=== PATIENT | male | born 1930 | race Caucasian/White ===

== ENCOUNTER → 2016-10-16 | Outpatient (CLI) | payer MEDICARE, BC ==
[2016-10-16 08:16] LABS: Basophils # (A) 0.1 k/uL (0-0.2); Basophils % (A) 1 %; CH 30.8; CHCM 32.9; Eosinophils # (A) 0.3 k/uL (0-0.7); Eosinophils % (A) 5 %; HDW 2.47; Luc # (Auto) 0.18; Luc % (Auto) 3; Lymphocytes # (A) 1.4 k/uL (1.0-4.8); Lymphocytes % (A) 24 %; MCH 29.9 pg (25.0-35.0); MCHC 31.8 g/dL (31.0-37.0); Mean Platelet Volume 6.6; Monocytes # (A) 0.5 k/uL (0-1.0); Monocytes % (A) 8 %; Neutrophils # (A) 3.3 k/uL (1.3-7.7); Neutrophils % (A) 58 %; RDW 13.7 % (11.5-15.5); WBC 5.7 k/uL (3.8-10.6); WBC (Perox) 5.69
[2016-10-16 08:35] LABS: ALT 21 U/L (21-72); AST 27 U/L (17-59); Alkaline Phosphatase 57 U/L (38-126); Anion Gap 11 mmol/L; Blood Urea Nitrogen 20 mg/dL (9-20); Calcium 9.9 mg/dL (8.4-10.2); Carbon Dioxide 26 mmol/L (22-30); Chloride 106 mmol/L (98-107); Cholesterol 178 mg/dL (<200); Glucose 98 mg/dL (74-99); HDL Cholesterol 46 mg/dL (40-60); Non-African American GFR(MDRD) 59 (>60 ml/min/1.73 sqM); Potassium 4.6 mmol/L (3.5-5.1); Sodium 143 mmol/L (137-145); Total Protein 7.7 g/dL (6.3-8.2); Triglycerides 133 mg/dL (<150)
== END | disposition home or self-care (01) ==
LOC: LABWHC1 07:09
PROVIDERS: ATTEND Family Medicine
DX: E78.5 Hyperlipidemia, unspecified (principal)
CPT/HCPCS: 36415; 80053; 80061; 84439; 84443; 85025

== ENCOUNTER 2016-11-13 00:15 | Inpatient (IN) | payer MEDICARE, BC ==
[2016-11-13] MEDS ORDERED: PANTOPRAZOLE 40 MG/10 ML VIAL IVP STA (00:53)
[2016-11-13] MEDS ORDERED: SODIUM CHLORIDE 0.9% 500 ML IV STA (00:53)
--- NOTE | 2016-11-13 00:57 | ED ---
Abdominal Pain HPI - General Chief Complaint: Abdominal Pain Stated Complaint: Abd Pain/Vomiting Blood Time Seen by Provider: 11/13/16 00:42 Source: patient Mode of arrival: ambulatory Limitations: no limitations - History of Present Illness Initial Comments: Abdominal pain started at 10 PM tonight, he has a history of heartburn for long time he vomited blood 3 tonight he denies any blood in the stool. Denies any headaches no neck stiffness no chest pain no shortness of breath he denies any being on blood thinners he does take a baby aspirin every day and he has history of gastroesophageal reflux disease. Draining about the pain in the epigastric area as well no frequency urgency dysuria no history of TIA or CVA - Related Data Home Medications Medication Instructions Recorded Confirmed Aspirin EC [Ecotrin] 325 mg PO DAILY 11/12/14 11/12/14 Enalapril [Vasotec] 5 mg PO BID 11/12/14 11/12/14 Niacin [Niaspan] 1,000 mg PO HS 11/12/14 11/12/14 Simvastatin [Zocor] 40 mg PO HS 11/12/14 11/12/14 Simvastatin [Zocor] 40 mg PO HS 11/12/14 11/12/14 Previous Rx's Medication Instructions Recorded Acetaminophen with Codeine 1 each PO Q4H PRN #20 tab 11/12/14 [Tylenol w/codeine #3] Azithromycin [Zithromax Z-pack] 0 mg PO DIRECTED #6 tab 11/12/14 Benzonatate [Tessalon Perles] 100 mg PO TID PRN #30 capsule 11/12/14 Cetirizine HCl/Pseudoephedrine 1 each PO BID #30 tab.er.12h 11/12/14 [Zyrtec-D Tablet] Allergies Allergy/AdvReac Type Severity Reaction Status Date / Time isosorbide mononitrate Allergy Unknown Verified 11/12/14 04:06 [From Imdur] lisinopril Allergy Unknown Verified 11/12/14 04:06 rosuvastatin calcium Allergy Unknown Verified 11/12/14 04:06 [From Crestor] solifenacin succinate Allergy Unknown Verified 11/12/14 04:06 [From Vesicare] Review of Systems ROS Statement: Those systems with pertinent positive or pertinent negative responses have been documented in the HPI. ROS Other: All systems not noted in ROS Statement are negative. Past Medical History Past Medical History: Hypertension History of Any Multi-Drug Resistant Organisms: None Reported Additional Past Surgical History / Comment(s): triple bypass Past Psychological History: No Psychological Hx Reported Smoking Status: Former smoker Past Alcohol Use History: Occasional Past Drug Use History: None Reported General Exam - General Exam Comments Initial Comments: General: The patient is awake and alert, in no distress, and does not appear acutely ill. Skin: Skin is warm and dry and no rashes or lesions are noted. Eye: Pupils are equal, round and reactive to light, extra-ocular movements are intact; there is normal conjunctiva bilaterally. Ears, nose, mouth and throat: There are moist mucous membranes and no oral lesions. Neck: The neck is supple, there is no tenderness or JVD. Cardiovascular: There is a regular rate and rhythm. No murmur, rub or gallop is appreciated. Respiratory: To auscultation bilateral, no wheezing no rhonchi no distress respiratory alvarez noticed Gastrointestinal: Tender in epigastric area positive bowel sounds no guarding no rebounds Back: There is no tenderness to palpation in the midline. There is no obvious deformity. Musculoskeletal: Normal ROM, no tenderness, There is no pedal edema. There is no calf tenderness or swelling. No cords were appreciated. Neurological: CN II-XII intact, Cranial nerves III through XII are intact. There are no obvious motor or sensory deficits. Coordination appears grossly intact. Speech is normal. Psychiatric: Cooperative, appropriate mood & affect, normal judgment. Limitations: no limitations Course Vital Signs 11/13/16 11/13/16 00:24 03:00 Temperature 97.8 F Pulse Rate 61 90 Respiratory 18 18 Rate Blood Pressure 176/85 153/74 O2 Sat by Pulse 96 98 Oximetry Patient was reassessed tomorrow 4 AM, his chest x-ray, CBC, lactate, troponin, compressive metabolic panel, UA was reviewed his CT abdomen was reviewed as well discussed with the patient is a question of distention of the stomach or yesterday, about left problems considering that patient be put in the hospital home GI team be consulted for possible scope him a he agrees with that and in the meantime will put him on an IV PPIs Medical Decision Making - Lab Data Result diagrams: 11/13/16 01:20 11/13/16 01:20 Lab Results 03/11/13/16 11/13/16 Range/Units 01:20 01:20 01:20 WBC 7.5 (3.8-10.6) k/uL RBC 4.16 L (4.30-5.90) m/uL Hgb 13.1 (13.0-17.5) gm/dL Hct 38.7 L (39.0-53.0) % MCV 93.0 (80.0-100.0) fL MCH 31.4 (25.0-35.0) pg MCHC 33.8 (31.0-37.0) g/dL RDW 13.9 (11.5-15.5) % Plt Count 163 (150-450) k/uL Neutrophils % 79 % Lymphocytes % 11 % Monocytes % 5 % Eosinophils % 2 % Basophils % 1 % Neutrophils # 5.9 (1.3-7.7) k/uL Lymphocytes # 0.8 L (1.0-4.8) k/uL Monocytes # 0.4 (0-1.0) k/uL Eosinophils # 0.1 (0-0.7) k/uL Basophils # 0.1 (0-0.2) k/uL PT 11.1 (9.0-12.0) sec INR 1.1 (<1.1) Sodium 145 (137-145) mmol/L Potassium 4.4 (3.5-5.1) mmol/L Chloride 106 (98-107) mmol/L Carbon Dioxide 27 (22-30) mmol/L Anion Gap 12 mmol/L BUN 45 H (9-20) mg/dL Creatinine 1.20 (0.66-1.25) mg/dL Est GFR (MDRD) Af Amer >60 (>60 ml/min/1.73 sqM) Est GFR (MDRD) Non-Af 57 (>60 ml/min/1.73 sqM) Glucose 141 H (74-99) mg/dL Plasma Lactic Acid Edi (0.7-2.0) mmol/L Calcium 10.1 (8.4-10.2) mg/dL Total Bilirubin 1.2 (0.2-1.3) mg/dL AST 24 (17-59) U/L ALT 25 (21-72) U/L Alkaline Phosphatase 43 (38-126) U/L Troponin I (0.000-0.034) ng/mL Total Protein 6.4 (6.3-8.2) g/dL Albumin 3.9 (3.5-5.0) g/dL Amylase 95 (30-110) U/L Lipase 86 (23-300) U/L Urine Color Urine Appearance (Clear) Urine pH (5.0-8.0) Ur Specific [place] (1.001-1.035) Urine Protein (Negative) Urine Glucose (UA) (Negative) Urine Ketones (Negative) Urine Blood (Negative) Urine Nitrite (Negative) Urine Bilirubin (Negative) Urine Urobilinogen (<2.0) mg/dL Ur Leukocyte Esterase (Negative) 11/13/16 11/13/16 11/13/16 Range/Units 01:20 01:20 01:20 WBC (3.8-10.6) k/uL RBC (4.30-5.90) m/uL Hgb (13.0-17.5) gm/dL Hct (39.0-53.0) % MCV (80.0-100.0) fL MCH (25.0-35.0) pg MCHC (31.0-37.0) g/dL RDW (11.5-15.5) % Plt Count (150-450) k/uL Neutrophils % % Lymphocytes % % Monocytes % % Eosinophils % % Basophils % % Neutrophils # (1.3-7.7) k/uL Lymphocytes # (1.0-4.8) k/uL Monocytes # (0-1.0) k/uL Eosinophils # (0-0.7) k/uL Basophils # (0-0.2) k/uL PT (9.0-12.0) sec INR (<1.1) Sodium (137-145) mmol/L Potassium (3.5-5.1) mmol/L Chloride (98-107) mmol/L Carbon Dioxide (22-30) mmol/L Anion Gap mmol/L BUN (9-20) mg/dL Creatinine (0.66-1.25) mg/dL Est GFR (MDRD) Af Amer (>60 ml/min/1.73 sqM) Est GFR (MDRD) Non-Af (>60 ml/min/1.73 sqM) Glucose (74-99) mg/dL Plasma Lactic Acid Edi 2.5 H* (0.7-2.0) mmol/L Calcium (8.4-10.2) mg/dL Total Bilirubin (0.2-1.3) mg/dL AST (17-59) U/L ALT (21-72) U/L Alkaline Phosphatase (38-126) U/L Troponin I <0.012 (0.000-0.034) ng/mL Total Protein (6.3-8.2) g/dL Albumin (3.5-5.0) g/dL Amylase (30-110) U/L Lipase (23-300) U/L Urine Color Yellow Urine Appearance Clear (Clear) Urine pH 6.5 (5.0-8.0) Ur Specific [place] 1.016 (1.001-1.035) Urine Protein Negative (Negative) Urine Glucose (UA) Negative (Negative) Urine Ketones 1+ H (Negative) Urine Blood Negative (Negative) Urine Nitrite Negative (Negative) Urine Bilirubin Negative (Negative) Urine Urobilinogen <2.0 (<2.0) mg/dL Ur Leukocyte Esterase Negative (Negative) Disposition Clinical Impression: Abdominal pain, Gastric distention Disposition: ADMITTED IP TO THIS HOSP Condition: Fair
[2016-11-13 01:31] LABS: Appearance,Urine Clear (Clear); Bilirubin,Urine Negative (Negative); Glucose,Urine (UA) Negative (Negative); Ketones,Urine 1+ (Negative); Leukocyte Esterase,Urine Negative (Negative); Nitrite,Urine Negative (Negative); PH, Urine 6.5 (5.0-8.0); Protein,Urine Negative (Negative); Specific Gravity,Urine 1.016 (1.001-1.035); UA Billing (MACRO vs. MICRO) CHEM; Urobilinogen,Urine <2.0 mg/dL (<2.0)
[2016-11-13 01:32] LABS: Basophils # (A) 0.1 k/uL (0-0.2); Basophils % (A) 1 %; CH 31.4; Eosinophils # (A) 0.1 k/uL (0-0.7); Eosinophils % (A) 2 %; HCT 38.7 % (39.0-53.0); HDW 2.59; HGB 13.1 gm/dL (13.0-17.5); Luc # (Auto) 0.17; Luc % (Auto) 2; Lymphocytes # (A) 0.8 k/uL (1.0-4.8); Lymphocytes % (A) 11 %; MCH 31.4 pg (25.0-35.0); MCHC 33.8 g/dL (31.0-37.0); Mean Platelet Volume 7.6; Monocytes # (A) 0.4 k/uL (0-1.0); Monocytes % (A) 5 %; Neutrophils # (A) 5.9 k/uL (1.3-7.7); Neutrophils % (A) 79 %; RBC 4.16 m/uL (4.30-5.90); RDW 13.9 % (11.5-15.5); WBC 7.5 k/uL (3.8-10.6)
[2016-11-13 01:42] LABS: INR 1.1 (<1.1); Prothrombin Time 11.1 sec (9.0-12.0)
[2016-11-13 01:49] LABS: ALT 25 U/L (21-72); AST 24 U/L (17-59); Alkaline Phosphatase 43 U/L (38-126); Amylase 95 U/L (30-110); Anion Gap 12 mmol/L; Blood Urea Nitrogen 45 mg/dL (9-20); Calcium 10.1 mg/dL (8.4-10.2); Carbon Dioxide 27 mmol/L (22-30); Chloride 106 mmol/L (98-107); Glucose 141 mg/dL (74-99); Non-African American GFR(MDRD) 57 (>60 ml/min/1.73 sqM); Potassium 4.4 mmol/L (3.5-5.1); Sodium 145 mmol/L (137-145); Total Bilirubin 1.2 mg/dL (0.2-1.3); Total Protein 6.4 g/dL (6.3-8.2)
--- NOTE | 2016-11-13 02:24 | XR ---
EXAM: XR Abdomen, 1 View. CLINICAL HISTORY: Reason: abdominal pain TECHNIQUE: Frontal upright views of the abdomen/pelvis. COMPARISON: No relevant prior studies available. FINDINGS: Intraperitoneal space: Small air-fluid level appears to be located in the gastric fundus. Allowing for this there is no free air. Gastrointestinal tract: There is colonic stool including right-sided and distally, within the rectum. No grossly dilated bowel loops are identified. Organs: Right upper quadrant surgical clips. Multiple bilateral pelvic surgical clips. Scattered bilateral pelvic calcifications suggesting phleboliths. Bones/joints: Previous median sternotomy. Osteopenia multilevel degenerative changes. IMPRESSION: No definite evidence of intestinal obstruction or perforation is identified. The findings could be correlated and followed clinically to guide further imaging follow-up as clinically indicated.
--- NOTE | 2016-11-13 02:28 | XR ---
EXAM: XR Chest, 2 Views. CLINICAL HISTORY: Reason: abdominal pain TECHNIQUE: Frontal and lateral views of the chest. COMPARISON: 11/12/14 chest radiographs. FINDINGS: Lungs: There is again anterior elevation or eventration of the right diaphragm adjacent to which there is minimal atelectasis or scarring at the right base. No superimposed infiltrate. Pleural space: Unremarkable. No pneumothorax. Heart: The heart size and mediastinal contours are stable postop median sternotomy and CABG. Mediastinum: See above. Bones/joints: Bones are stable including osteopenia multilevel degenerative changes. Upper abdomen: There is an air-fluid level present in the left upper quadrant, that appears to be located within the gastric fundus. IMPRESSION: 1. No new acute process seen within the chest. 2. Air-fluid level within the gastric fundus, nonspecific.
[2016-11-13] MEDS ORDERED: RX INFO: IV CONTRAST WAS GIVEN 1 EACH MISC MISCELLANE PRN (02:32)
[2016-11-13] MEDS: SODIUM CHLORIDE 0.9% 1,000 ML IV STA ×2 (02:39→10:03)
--- NOTE | 2016-11-13 03:32 | CT ---
EXAM: CT Abdomen and Pelvis With Intravenous Contrast. CLINICAL HISTORY: Reason: Pain TECHNIQUE: Axial computed tomography images of the abdomen and pelvis with intravenous contrast. CTDI is 16.80 mGy and DLP is 735.10 mGy-cm This CT exam was performed using one or more of the following dose reduction techniques: automated exposure control, adjustment of the mA and/or kV according to patient size, and/or use of iterative reconstruction technique. COMPARISON: Current plain films. FINDINGS: Lower thorax: Prior median sternotomy and presumed CABG with aortic valve calcification noted. ABDOMEN: Liver: Unremarkable. No mass. Gallbladder and bile ducts: Prior cholecystectomy. No ductal dilation. Pancreas: Diffuse fatty replacement of the pancreas. No ductal dilation. Spleen: Unremarkable. No splenomegaly. Adrenals: Unremarkable. No mass. Kidneys and ureters: Bilateral renal cysts, one of which on each side is complex. This includes the largest, measuring 12.7 x 11.5 cm arising from the right upper pole kidney and which contains 1 or 2 thin linear internal septations. Partially exophytic 3.6 x 3.1 cm lateral left interpolar renal cyst contains layering calcifications/sediment within. A 5.5 cm cyst along the medial right lower pole appears simple as does a much smaller 1.5 cm cyst along the medial upper pole. Stomach and bowel: Mild to moderate gastric distention, containing fluid and debris within. The gastric pylorus appears relatively narrowed in a symmetric manner. Beyond this there is no evidence of small or large bowel obstruction. There is extensive colonic diverticulosis without evidence of diverticulitis. Appendix: No findings to suggest acute appendicitis. PELVIS: Bladder: Unremarkable. No mass. Reproductive: Previous prostatectomy. ABDOMEN and PELVIS: Intraperitoneal space: No free air. No significant fluid collection. Bones/joints: Osteopenia and multilevel degenerative changes. Mild to moderate L1 and L2 compression deformities appear chronic. Soft tissues: Additional surgical clips in the bilateral inguinal regions. Vasculature: Atherosclerotic calcifications throughout. There is ectasia of the aorta with a small focal aneurysm measuring 3.0 cm AP, at the L2-3 level. Lymph nodes: Unremarkable. No enlarged lymph nodes. IMPRESSION: 1. Distended fluid and debris-filled stomach with pyloric channel narrowing that may be transient or on the basis of contraction although underlying abnormality is not excluded, and further GI evaluation may be considered as clinically indicated. 2. Bilateral renal cysts, one of which on each side is mildly complex, as above. 3. Additional findings includes 3.0 cm infrarenal abdominal aortic aneurysm.
[2016-11-13] MEDS ORDERED: MORPHINE SULFATE 4 MG/ML SYRINGE IV PRN (04:21)
[2016-11-13] MEDS ORDERED: NALOXONE 0.4 MG/ML 1 ML VIAL IV PRN (04:21)
[2016-11-13] MEDS ORDERED: ONDANSETRON 4 MG/2 ML VIAL IVP PRN (04:21)
[2016-11-13] MEDS ORDERED: ACET/COD 300 MG/30 MG STARTER PACK 6 TAB BTL PO PRN (04:29)
--- NOTE | 2016-11-13 08:24 | P.CONS ---
History of Present Illness - Reason for Consult Consult date: 11/13/16 Hematemesis Requesting physician: Laina Childress - History of Present Illness 86-year-old gentleman [place] Citizen descent with a past medical history of CAD and CABG , hyperlipidemia, hypertension, AL, prostate carcinoma with radiation, chronic back pain. Patient presents with acute hematemesis 3 last night with midepigastric discomfort. He has been experiencing heartburn type symptoms midepigastric discomfort for the last few weeks. No history of peptic ulcer disease or EGD. Denies hematochezia or melena. No weight loss. Denies fever or chills. No aspirin or excessive usage of NSAIDs. No alcohol. Hemoglobin 13.1. White count 7.5. INR 1.1. BUN 45. Creatinine 1.2. Stool Hemoccult negative. CT abdomen and pelvis reported distended fluid-filled debris stomach with pyloric channel narrowing. Review of Systems Constitutional: Denies fever, chills, sweats, weight gain, or loss. HEENT: Negative for migraines, blurred vision or loss, earaches, drainage, tinnitus, oral mucosal lesions, dysphagia, or odynophagia. Cardiac: CAD. CABG. AL. Hyperlipidemia. Hypertension. Negative for chest pain, arrhythmias, or palpitation. Respiratory: Negative for shortness of breath, hemoptysis, cough, or sputum production. Gastrointestinal: See HPI for pertinent findings. Genitourinary: Prostate carcinoma with radiation. Negative for hematuria, urgency, frequency, polyuria, dysuria, or penile discharge. Musculoskeletal: Negative for muscle aches, swelling, arthritis, and arthralgias. Neurologic: Negative for stroke or TIA. Endocrine: Negative for thyroid problems. Skin: Negative for rash or itching. Psychiatric: Negative history for depression and anxiety All systems: negative (See HPI) Past Medical History Past Medical History: Coronary Artery Disease (CAD), Cancer, GERD/Reflux, Hyperlipidemia, Hypertension, Myocardial Infarction (AL), Osteoarthritis (OA), Prostate Disorder Additional Past Medical History / Comment(s): Prostate cancer with prostatectomy and radiation-pt states PSA has increased lately, occasional back pain, sinus problems. Last Myocardial Infarction Date:: 1984 History of Any Multi-Drug Resistant Organisms: None Reported Past Surgical History: Cholecystectomy, Coronary Bypass/CABG, Heart Catheterization, Hernia Repair, Orthopedic Surgery, Prostate Surgery Additional Past Surgical History / Comment(s): CABG 3 vessel in 1984, R rotator cuff repair, bilateral cataract removal, inguinal hernia repairs x 2, hemorrhoidectomy. Past Psychological History: No Psychological Hx Reported Additional Psychological History / Comment(s): Pt resides with his spouse. He is independent. He walks 3 miles daily on his treadmill. He lived in [place] and moved to the [facility] in [address]. He reads in [place] but writes better in [place]. Smoking Status: Former smoker Past Alcohol Use History: None Reported Past Drug Use History: None Reported - Past Family History Father Family Medical History: Myocardial Infarction (AL) Additional Family Medical History / Comment(s): Father had a AL at the age of 55 yrs. Mother Family Medical History: No Reported History Additional Family Medical History / Comment(s): Mother was healthy and lived into her 80's. Medications and Allergies Home Medications Medication Instructions Recorded Confirmed Type Aspirin EC [Ecotrin] 325 mg PO DAILY 11/12/14 11/12/14 History Enalapril [Vasotec] 5 mg PO BID 11/12/14 11/12/14 History Niacin [Niaspan] 1,000 mg PO HS 11/12/14 11/12/14 History Simvastatin [Zocor] 40 mg PO HS 11/12/14 11/12/14 History Simvastatin [Zocor] 40 mg PO HS 11/12/14 11/12/14 History Allergies Allergy/AdvReac Type Severity Reaction Status Date / Time isosorbide mononitrate Allergy Unknown Verified 11/12/14 04:06 [From Imdur] lisinopril Allergy Unknown Verified 11/12/14 04:06 rosuvastatin calcium Allergy Unknown Verified 11/12/14 04:06 [From Crestor] solifenacin succinate Allergy Unknown Verified 11/12/14 04:06 [From Vesicare] Physical Exam Vitals: Vital Signs Temp Pulse Pulse Resp BP BP Pulse Ox 11/13/16 07:52 97.2 F L 91 18 156/118 96 11/13/16 06:03 97.9 F 60 16 133/70 97 General appearance: The patient is alert, oriented, in no acute distress. HET: Head is normocephalic and atraumatic. Pupils are equal and reactive. Oropharynx is clear without lesions. Neck: Supple without lymphadenopathy. Trachea midline. Heart: S1 S2. Regular rate and rhythm. Lungs: No crackles or wheezes are heard. Abdomen: Soft, nontender, nondistended with bowel sounds. No peritoneal signs. No palpable organomegaly or masses. Extremities: Normal skin color and turgor. No cyanosis, rash, ulceration, clubbing, or edema. Radial and pedal pulses are 2/4 bilaterally. Neurological: No focal deficits. Strength and sensation are grossly intact. Results CBC & Chem 7: 11/13/16 01:20 11/13/16 01:20 CT scan - abdomen: report reviewed (Review by Dr. Sorensen) CT scan - pelvis: report reviewed (Reviewed by Dr. Sorensen) Assessment and Plan (1) Hematemesis Narrative/Plan: 6-year-old male presents with acute hematemesis 3 with heartburn-type symptoms for the last few weeks with CT imaging suggestive of gastric distention and pyloric channel narrowing. Possible peptic ulcer disease however underlying malignancy cannot be entirely excluded. Status: Acute (2) Gastric distention Status: Acute Plan: 1. IV Protonix 40 mg twice daily. 2. EGD evaluation today. 3. CBC monitoring. The director of hotel has discussed the risks, benefits and alternative therapies for the above-mentioned procedure and for both sedation/analgesia as well as necessary blood product administration, if indicated, as they pertain to this patient. The patient has indicated understanding and acceptance of the risks and procedures discussed. Thank you for this kind referral and the opportunity to participate in the care of your patient. This consultation was discussed with Dr. Sorensen. The impression and plan of care have been directed as dictated.
[2016-11-13] MEDS ORDERED: NON-FORMULARY DRUG (Enalapril 5 MG) PO SCH (09:00)
[2016-11-13] MEDS: PANTOPRAZOLE 40 MG/10 ML VIAL IV SCH ×2 (10:04→22:57)
--- NOTE | 2016-11-13 13:12 | P.GSCN ---
History of Present Illness Consult date: 11/13/16 Reason for Consult: surgical eval for hematemesis History of present illness: This is an 86-year-old gentleman who is being seen at the request of the attending for surgical eval. Patient did present to the emergency room on November 13 after patient stated that he had vomited dark black secretions 3 times since 8:00 in the evening. Patient does give a report of having for the last several months experiencing episodes of heartburn symptoms which he states he has been taking [id number] Tums for with some relief. Patient states he has not had an EGD done in the past. several years ago not exactly sure of the date he had a colonoscopy done was told everything was normal he did not need to have any further colonoscopies done. Patient denies any difficulty in swallowing denies a change in bowel habits states he does not take on a daily basis Motrin does take an aspirin daily patient states since being admitted to the hospital has not had any further hematemesis the hemoglobin this morning is 11.1. Family at the bedside they're aware of the plan of care patient is scheduled by GI service Dr. Couch for an EGD today as part of the workup for hematemesis patient gives no history of having being treated for peptic ulcers disease. Patient additionally reports no nausea vomiting. CAT scan of the abdomen pelvis showed distended fluid level debris in the stomach with pyloric channel narrowing Review of Systems Essentially unremarkable except as mentioned present illness Past Medical History Past Medical History: Coronary Artery Disease (CAD), Cancer, GERD/Reflux, Hyperlipidemia, Hypertension, Myocardial Infarction (LA), Osteoarthritis (OA), Prostate Disorder Additional Past Medical History / Comment(s): Prostate cancer with prostatectomy and radiation-pt states PSA has increased lately, occasional back pain, sinus problems. Last Myocardial Infarction Date:: 1984 History of Any Multi-Drug Resistant Organisms: None Reported Past Surgical History: Cholecystectomy, Coronary Bypass/CABG, Heart Catheterization, Hernia Repair, Orthopedic Surgery, Prostate Surgery Additional Past Surgical History / Comment(s): CABG 3 vessel in 1984, R rotator cuff repair, bilateral cataract removal, inguinal hernia repairs x 2, hemorrhoidectomy. Past Psychological History: No Psychological Hx Reported Additional Psychological History / Comment(s): Pt resides with his spouse. He is independent. He walks 3 miles daily on his treadmill. He lived in [place] and moved to the [facility] in 1957. He reads in Armenian but writes better in Malaysian. Smoking Status: Former smoker Past Alcohol Use History: None Reported Past Drug Use History: None Reported - Past Family History Father Family Medical History: Myocardial Infarction (LA) Additional Family Medical History / Comment(s): Father had a LA at the age of 55 yrs. Mother Family Medical History: No Reported History Additional Family Medical History / Comment(s): Mother was healthy and lived into her 80's. Medications and Allergies Home Medications Medication Instructions Recorded Confirmed Type Aspirin EC [Ecotrin] 325 mg PO DAILY 11/12/14 11/13/16 History Niacin [Niaspan] 1,000 mg PO HS 11/12/14 11/13/16 History Simvastatin [Zocor] 40 mg PO HS 11/12/14 11/13/16 History Enalapril [Vasotec] 10 mg PO BID 11/13/16 11/13/16 History Allergies Allergy/AdvReac Type Severity Reaction Status Date / Time isosorbide mononitrate Allergy Unknown Verified 11/13/16 08:25 [From Imdur] lisinopril Allergy Unknown Verified 11/13/16 08:25 rosuvastatin calcium Allergy Unknown Verified 11/13/16 08:25 [From Crestor] solifenacin succinate Allergy Unknown Verified 11/13/16 08:25 [From Vesicare] Surgical - Exam Vital Signs Temp Pulse Resp BP Pulse Ox 97.8 F 61 18 176/85 96 11/13/16 00:24 11/13/16 00:24 11/13/16 00:24 11/13/16 00:24 11/13/16 00:24 GENERAL APPEARANCE: Pleasant 86-year-old male sitting up in bed talkative able to provide adequate past medical history patient is alert, oriented, in no acute distress. VITAL SIGNS: Reviewed HEENT: Head is normocephalic and atraumatic. Pupils are equal and reactive. The nares are patent. Oropharynx is clear without lesions. NECK: Supple without lymphadenopathy. Traches midline. HEART: S1, S2. Regular rate and rhythm. No murmur noted denying chest pain LUNGS: . Adequate air entry no wheezing no rales no rhonchi no conversational dyspnea noted no cough noted on room air Abdomen nondistended with good bowel sounds. No peritoneal signs. No palpable organomegaly or masses. Reports continues to have heartburn burning sensation no emesis EXTREMITIES: Normal skin color and turgor. No cyanosis, rash, ulceration, clubbing or edema. Radial pedal pulses are 2/4 bilaterally. NEUROLOGICAL: No focal deficits. Strength and sensation are grossly intact. Results - Labs 11/13/16 01:20 11/13/16 01:20 Assessment and Plan Plan: Impression Present on admission episode of hematemesis epigastric heartburn with a computed tomography scan of the abdomen pelvis showing gastric distention pyloric channel narrowing possible peptic ulcer disease not excluded Present on admission episode of hematemesis 3 with epigastric heartburn symptoms onset several weeks prior History of heartburn esophageal burning onset past several months using over-the -counter Tums with no significant relief acute gastric distention as evident on a CAT scan of the abdomen and pelvis showing pyloric channel narrowing Plan Scheduled for an EGD this afternoon pending results of further recommendations Continue with the protonix PPI as ordered DVT and GI prophylaxis as appropriate No evidence of an acute surgical intervention at this time Repeat labs in the morning Further surgical recommendations pending Thank you for allowing us to participate in the surgical management of your patient The above dictated assessment and findings were discussed with Dr. Kathy Chand Impression and the plan of care have been dictated as directed. Krystina Shabazz nurse practitioner acting as a scribe for Dr. Christian
[2016-11-13] MEDS ORDERED: IV FLUID CONTINUATION 500 ML IV ONE (13:25)
[2016-11-13] MEDS ORDERED: PROPOFOL 10 MG/ML 20 ML VIAL IV ONE (13:25)
--- NOTE | 2016-11-13 13:40 | P.PCN ---
Date of Procedure: 11/13/16 Procedure(s) Performed: BRIEF HISTORY: Patient is a 86-year-old, pleasant, male, admitted hospital with 3 episodes of coffee-ground emesis last night. His hemoglobin was 13.8 g/dL. He did have a CT of the abdomen and pelvis done for epigastric discomfort which showed distended stomach with a possible pyloric stenosis. He is hence scheduled for an upper endoscopy to evaluate further. PROCEDURE PERFORMED: Esophagogastroduodenoscopy with biopsy. PREOPERATIVE DIAGNOSIS: Acute upper GI bleed. IV sedation per anesthesia. PROCEDURE: After informed consent was obtained, the patient was brought into the endoscopy unit. IV conscious sedation was administered by Anesthesia under continuous monitoring. Initially the Olympus GIF-140 video endoscope was inserted into the mouth. Esophagus intubated without any difficulty. It was gradually advanced into the stomach and duodenum and carefully examined. The bulb and the second part of the duodenum appeared normal. The scope at this time was withdrawn to the stomach, adequately insufflated with air, and upon careful examination, there was a 2 cm clean-based deep antral ulcer in the prepyloric area with no pyloric obstruction. There was no bleeding identified. The body of the ulcer was somewhat irregular and slightly raised and multiple biopsies were done from the margin of the ulcer. The rest of the mucosa of the antrum, body, cardia and the fundus appeared normal. The scope was then withdrawn into the esophagus. Small hiatal hernia noted. The GE junction was located at 39 cm from the incisors. There were linear ulcerations noted in the distal esophagus consistent with LA grade C reflux esophagitis. Also there were small distal esophageal varices identified but no active bleeding. The rest of the esophagus appeared normal and the patient tolerated the procedure well. IMPRESSION: 1. 2 cm clean-based antral ulcer in the prepyloric area with raised margins but no active bleeding status post biopsy. 2. No evidence of pyloric obstruction. 3. LA grade C reflux esophagitis 4. Small hiatal hernia. 5. Small distal esophageal varices. RECOMMENDATIONS: The findings of this examination were discussed with the patient as well as his family. He will be continued on Protonix 40 mg every 12 hours and we'll start him on clear liquid diet and advance as tolerated. The meantime will await the biopsy results.
[2016-11-13] MEDS ORDERED: NON-FORMULARY DRUG (Enalapril 10 MG) PO SCH (21:00)
--- NOTE | 2016-11-13 22:51 | HP ---
DATE OF ADMISSION: 11/13/2016 CHIEF COMPLAINT: Upper gastrointestinal bleeding and as well as abdominal pain. I am covering for Dr. Blayne Chand. HISTORY OF PRESENT ILLNESS: This 86-year-old gentleman with a past history of coronary artery disease, history of GERD, hypertension, Hyperlipidemia, myocardial infarction, history of prostate disorder, prostate cancer with radiation, cholecystectomy, coronary artery disease, coronary artery bypass grafting, cardiac catheterization, being followed by Dr. Blayne Chand in the outpatient setting was admitted to [facility] with complaints of hematemesis. Patient initially had heartburn, subsequently patient vomited blood about 3 times and the patient was taking baby aspirin as well. Because of concerns of upper bleeding, the patient came to [facility] and was admitted to the hospital. Hemoglobin is 13.1. Plasma lactic acid found to be 2.1 with IV fluids. The patient also had a CAT scan of the abdomen which showed multiple findings such as possible distended of the stomach with pyloric channel showing maybe a contraction or possibly even an obstruction and 3 cm infrarenal abdominal aortic aneurysm was also noted. The patient admitted to the hospital for further evaluation and treatment. There is no history of fever, rigors or chills. No history of headache, loss of consciousness or seizures. Past medical history of coronary artery disease, history of GERD, hypertension, hyperlipidemia, history of myocardial infarction, degenerative joint disease, prostate cancer, prostatectomy, radiation. Medications prior to admission include home medications are: 1. Zocor 40 mg daily. 2. Niaspan 1000 mg q.h.s. 3. Vasotec 10 mg daily. 4. Ecotrin 325 daily. Legs: ALLERGIES: IMDUR, LISINOPRIL, CRESTOR, VESICARE. FAMILY HISTORY: History of myocardial infarction in the family. SOCIAL HISTORY: Previous history of smoking. No history of current smoking or alcohol intake. REVIEW OF SYSTEMS: ENT: Diminished hearing. Diminished vision. CARDIOVASCULAR: No angina or palpitations. RESPIRATORY: As mentioned earlier. GI: No nausea. : No dysuria. Nervous system: No numbness or weakness. ALLERGY/IMMUNOLOGY: No asthma or hayfever. MUSCULOSKELETAL: As mentioned earlier. HEMATOLOGY/ONCOLOGY: As mentioned earlier. ENDOCRINE: No history of diabetes, hypothyroidism. CONSTITUTIONAL: As mentioned earlier. DERMATOLOGY: Negative. RHEUMATOLOGY: Negative. PSYCHIATRY: Negative. PHYSICAL EXAMINATION: The patient is alert and oriented times three . Pulse 85, blood pressure 139/74, respirations 18, temperature 98.2, pulse ox 95% on room air. HEENT: Conjunctivae normal. Oral mucosa moist. NECK: No jugular venous distention. No carotid bruit. No lymph node enlargement. CARDIOVASCULAR: S1, S2 muffled. No S3, no S4. RESPIRATORY: Breath sounds diminished at the bases. A few scattered rhonchi, no crackles. ABDOMEN: Soft, obese, nontender. No mass palpable. Obese, mild diffuse discomfort epigastrium. No guarding. No rigidity. No mass palpable. No ascites. Bowel sounds present. EXTREMITIES: Legs no edema, no swelling. Nervous system: Higher functions as mentioned earlier. Moves all four limbs. No focal deficits. LYMPHATICS: No lymph nodes palpable in the neck, axillae or groin. SKIN: no ulcer, rash or bleeding. LABS: WBC 7.5, hemoglobin 13.1, INR 1.1. BUN is 45. Plasma lactic acid 2.5. ASSESSMENT: 1. Upper gastrointestinal bleeding for evaluation, possible peptic ulcer disease. 2. Rule out gastric outlet obstruction. 3. History of coronary artery disease. 4. History of gastroesophageal reflux disease. 5. Hypertension. 6. Hyperlipidemia. 7. Myocardial infarction. 8. History of degenerative joint disease. 9. History of prostate cancer with prostatectomy and radiation. 10. History of cholecystectomy. 11. History of coronary artery disease, coronary artery bypass grafting. 12. History of breast surgery. 13. History of degenerative joint disease. 14. FULL CODE. RECOMMENDATIONS AND DISCUSSION: In this 86-year-old gentleman who presented with multiple complex medical issues. We will monitor the patient closely, continue the current medications, continue symptomatic treatment. Otherwise, at this time I recommend repeat hemoglobin, EGD by Dr. Sorensen. EGD was done later today, which showed 2 cm clean based antral ulcer in the prepyloric area with raised margins with active bleeding. No evidence of pyloric obstruction and low grade C esophagitis, small hiatal hernia and small for evaluation also. Continue to monitor. Resume the home medications. Avoid antiplatelets agents, NSAIDS and proton pump inhibitors will be given. Guarded prognosis. Further recommendations to follow. Will follow the patient closely. Further recommendations to follow. Copy of dictation forwarded to Dr. Blayne Chand who is the primary physician. [facility]
[2016-11-13] MEDS: ATORVASTATIN 20 MG TAB PO SCH (22:57)
[2016-11-13] MEDS: NIACIN TR 500 MG CAPSULE.ER PO SCH (22:57)
[2016-11-14 07:39] LABS: Basophils % (A) 1 %; CH 30.6; CHCM 33.1; Eosinophils # (A) 0.2 k/uL (0-0.7); Eosinophils % (A) 3 %; HCT 33.4 % (39.0-53.0); HDW 2.52; Luc # (Auto) 0.15; Luc % (Auto) 3; Lymphocytes % (A) 19 %; MCH 30.7 pg (25.0-35.0); MCHC 32.9 g/dL (31.0-37.0); MCV 93.1 fL (80.0-100.0); Mean Platelet Volume 7.3; Monocytes # (A) 0.4 k/uL (0-1.0); Monocytes % (A) 7 %; Neutrophils # (A) 3.4 k/uL (1.3-7.7); Neutrophils % (A) 67 %; RBC 3.59 m/uL (4.30-5.90); RDW 14.1 % (11.5-15.5); WBC 5.1 k/uL (3.8-10.6); WBC (Perox) 5.72
[2016-11-14] MEDS: PANTOPRAZOLE 40 MG/10 ML VIAL IV SCH ×2 (07:39→19:55)
[2016-11-14 08:00] LABS: Anion Gap 9 mmol/L; Blood Urea Nitrogen 26 mg/dL (9-20); Calcium 8.8 mg/dL (8.4-10.2); Carbon Dioxide 21 mmol/L (22-30); Chloride 113 mmol/L (98-107); Glucose 90 mg/dL (74-99); Non-African American GFR(MDRD) >60 (>60 ml/min/1.73 sqM); Potassium 4.1 mmol/L (3.5-5.1); Sodium 143 mmol/L (137-145)
[2016-11-14] MEDS ORDERED: PANTOPRAZOLE 40 MG/10 ML VIAL IV SCH (09:00)
--- NOTE | 2016-11-14 12:29 | CONS ---
DATE OF CONSULTATION: 11/14/2016 The patient is an 86-year-old pleasant white male who was admitted to the hospital with acute upper gastrointestinal bleed. He had an upper endoscopy done by me yesterday that showed a 2 cm antral ulcer with raised irregular margins, but no active bleeding. He also has severe reflux esophagitis. The patient has been on IV Protonix 40 mg every 12 hours and he is doing better. He denies any symptoms. He did not have any further episodes of bleeding. He is on a clear liquid diet, tolerating well. On physical examination, he appears comfortable in no apparent distress. Vitals as are stable. Blood pressure 139/75, pulse 85, temperature 98.3. HEENT: Unremarkable. Conjunctivae pink. Sclerae anicteric. Oral cavity no lesions. NECK: No JVD or lymph node enlargement. CHEST: Clear to auscultation. HEART: Regular rate and rhythm. ABDOMEN: Soft. It was nontender, nondistended. Bowel sounds are positive. No organomegaly. EXTREMITIES: No pedal edema. SKIN: No rashes. NEURO: He is alert and oriented x2. LABS: WBC 5.1, hemoglobin 11. Platelets are normal. BUN is 26, creatinine 0.9. IMPRESSION: Acute upper gastrointestinal bleeding secondary to 2 cm antral ulcer with no evidence of gastric outlet obstruction, status post EGD yesterday with multiple biopsies, on IV Protonix 40 mg every12, doing well. RECOMMENDATIONS: 1. Continue with Protonix 40 mg every 12 hours. 2. Advance diet as tolerated. 3. The patient will be discharged home today or tomorrow with an outpatient follow up in a week.
--- NOTE | 2016-11-14 12:33 | P.PN ---
Subjective Patient is a 6-year-old gentleman who was admitted with an upper GI bleed. He underwent an EGD which revealed a 2 cm clean-based antral ulcer in the prepyloric area. There was no active bleeding. The patient denies any active bleeding the past 24 hours. Multiple biopsies were obtained at the margin of the ulcer and these are pending. Objective - Vital Signs Vital signs: Vital Signs Temp 97.7 F 11/14/16 07:00 Pulse 95 11/14/16 07:00 Resp 18 11/14/16 07:00 BP 150/80 11/14/16 07:00 Pulse Ox 97 11/14/16 07:00 Intake & Output 11/13/16 11/14/16 11/14/16 18:59 06:59 18:59 Intake Total 400 1240 Balance 400 1240 Weight 72.575 kg Intake: IV 200 Intake, IV Titration 800 Amount Sodium Chloride 0.9% 1, 800 000 ml @ 100 mls/hr IV . Q10H STA Rx#:[id number] Oral 200 440 Other: Voiding Method Toilet Toilet Urinal Urinal # Voids 1 - Constitutional General appearance: Present: average body habitus, cooperative - Respiratory Respiratory: bilateral: CTA - Cardiovascular Rhythm: regular Heart sounds: normal: S1, S2 - Gastrointestinal General gastrointestinal: Present: normal bowel sounds, soft - Psychiatric Psychiatric: Present: A&O x's 3, appropriate affect, intact judgment & insight - Labs CBC & Chem 7: 11/14/16 07:22 11/14/16 07:22 Labs: Abnormal Lab Results - Last 24 Hours (Table) 11/14/16 11/14/16 Range/Units 07:22 07:22 RBC 3.59 L (4.30-5.90) m/uL Hgb 11.0 L (13.0-17.5) gm/dL Hct 33.4 L (39.0-53.0) % Chloride 113 H (98-107) mmol/L Carbon Dioxide 21 L (22-30) mmol/L BUN 26 H (9-20) mg/dL Assessment and Plan Plan: Impression/plan: 1. 86-year-old white male status post EGD for upper GI bleed 2. Await results of biopsy 3. No indication for acute surgical intervention at this time
--- NOTE | 2016-11-14 15:08 | P.PN ---
Subjective Date of service 11/14/2016. Progress note being dictated for Dr. Childress. Interval history: This is an 86-year-old gentleman admitted with upper GI bleed and multiple other medical issues. Yesterday ,Underwent EGD reporting 2 cm antral ulcer without active bleed, severe reflux esophagitis, small distal esophageal varices. Multiple biopsies obtained, tolerated procedure well. Maintained on PPI every 12 hours. Tolerating clear liquid diet with no nausea vomiting. Small black bowel movement this morning. Hemoglobin dropped 2 g, down to 11. Denies chest pain, palpitations or increasing shortness of breath. Objective - Vital Signs Vital signs: Vital Signs Temp 97.7 F 11/14/16 07:00 Pulse 95 11/14/16 07:00 Resp 18 11/14/16 07:00 BP 150/80 11/14/16 07:00 Pulse Ox 97 11/14/16 07:00 Intake & Output 11/13/16 11/14/16 11/14/16 18:59 06:59 18:59 Intake Total 400 1240 Balance 400 1240 Weight 72.575 kg Intake: IV 200 Intake, IV Titration 800 Amount Sodium Chloride 0.9% 1, 800 000 ml @ 100 mls/hr IV . Q10H STA Rx#:[id number] Oral 200 440 Other: Voiding Method Toilet Toilet Urinal Urinal # Voids 1 3 # Bowel Movements 2 - Exam PHYSICAL EXAM: VITAL SIGNS: As above GENERAL: [Sitting up in bed, no acute distress] HEENT: [Pupils equal conjunctiva normal.] NECK: [Supple, no JVD] RESPIRATORY EFFORT:[Normal] LUNGS: [Bilateral bases diminished, fine right basilar crackles] CARDIOVASCULAR[regular S1 and S2, no murmurs rubs or gallops, no edema] GI: [Abdomen soft, nontender, positive bowel sounds. No organomegaly] PSYCH: [Alert and oriented -3, mood and affect normal.] NEURO: No focal Deficits, moves all 4 extremities, strength and incision grossly intact - Labs CBC & Chem 7: 11/14/16 07:22 11/14/16 07:22 Labs: Abnormal Lab Results - Last 24 Hours (Table) 11/14/16 11/14/16 Range/Units 07:22 07:22 RBC 3.59 L (4.30-5.90) m/uL Hgb 11.0 L (13.0-17.5) gm/dL Hct 33.4 L (39.0-53.0) % Chloride 113 H (98-107) mmol/L Carbon Dioxide 21 L (22-30) mmol/L BUN 26 H (9-20) mg/dL Assessment and Plan Plan: 1. [Acute Upper GI bleed status post EGD reporting 2 cm antral ulcer without active bleed, without gastric outlet obstruction, severe reflux esophagitis, small distal esophageal varices. 2. Acute blood loss anemia secondary to the above 3. Hypertension]. 4. CAD, history of [place] and CABG]. 5. Hyperlipidemia]. 6. Degenerative joint disease]. 7. History of prostate cancer with prostatectomy and radiation 8. Hyperchloremia Plan: Continue on current medication regime ,monitoring and symptomatic treatment. Maintain PPI every 12 hours. Close monitoring of hemoglobin, repeat hemoglobin at 1600, repeat labs in a.m. Advance diet as tolerated. Biopsies pending. Discharge planning in progress for tomorrow. The impression and plan of care has been dictated as directed. : I performed a H&P examination of this patient and discussed the same with the dictator. I agree with the dictator's note. Any additional findings/opinions/ etc. will be noted.
[2016-11-14 17:15] LABS: CH 30.7; CHCM 33.2; HGB 10.7 gm/dL (13.0-17.5); MCH 31.1 pg (25.0-35.0); MCHC 33.5 g/dL (31.0-37.0); MCV 92.9 fL (80.0-100.0); Mean Platelet Volume 7.5; RBC 3.45 m/uL (4.30-5.90); RDW 13.9 % (11.5-15.5); WBC 5.9 k/uL (3.8-10.6)
[2016-11-14] MEDS: ATORVASTATIN 20 MG TAB PO SCH (19:56)
[2016-11-14] MEDS: NIACIN TR 500 MG CAPSULE.ER PO SCH (19:56)
[2016-11-15 08:37] LABS: Basophils # (A) 0.1 k/uL (0-0.2); Basophils % (A) 1 %; CHCM 33.7; Eosinophils # (A) 0.3 k/uL (0-0.7); Eosinophils % (A) 6 %; HCT 32.2 % (39.0-53.0); HDW 2.63; HGB 10.7 gm/dL (13.0-17.5); Luc # (Auto) 0.18; Luc % (Auto) 3; Lymphocytes # (A) 0.9 k/uL (1.0-4.8); Lymphocytes % (A) 18 %; MCH 30.7 pg (25.0-35.0); MCHC 33.1 g/dL (31.0-37.0); MCV 92.5 fL (80.0-100.0); Mean Platelet Volume 7.4; Monocytes # (A) 0.3 k/uL (0-1.0); Monocytes % (A) 6 %; Neutrophils # (A) 3.4 k/uL (1.3-7.7); Neutrophils % (A) 66 %; RBC 3.48 m/uL (4.30-5.90); RDW 13.9 % (11.5-15.5); WBC 5.2 k/uL (3.8-10.6); WBC (Perox) 5.47
--- NOTE | 2016-11-15 08:37 | P.PN ---
Subjective Patient is a 86-year-old gentleman who was admitted with an upper GI bleed. He underwent an EGD which revealed a 2 cm clean-based antral ulcer in the prepyloric area. There was no active bleeding. The patient denies any active bleeding at this time. Multiple biopsies were obtained at the margin of the ulcer and these are pending. Patient has no complaints at this time he is eating breakfast. Patient does not complain of any abdominal pain. Objective - Vital Signs Vital signs: Vital Signs Temp 98.0 F 11/14/16 23:00 Pulse 74 11/15/16 00:00 Resp 16 11/15/16 00:00 BP 119/68 11/14/16 23:00 Pulse Ox 95 11/14/16 23:00 Intake & Output 11/14/16 11/15/16 11/15/16 18:59 06:59 18:59 Intake Total 480 Output Total 500 Balance -20 Intake: Oral 480 Output: Urine 500 Other: Voiding Method Toilet Toilet # Voids 3 2 # Bowel Movements 2 2 - Constitutional General appearance: Present: average body habitus, no acute distress - Respiratory Respiratory: bilateral: CTA - Cardiovascular Rhythm: regular Heart sounds: normal: S1, S2 - Gastrointestinal General gastrointestinal: Present: normal bowel sounds, soft - Psychiatric Psychiatric: Present: A&O x's 3, appropriate affect, intact judgment & insight - Labs CBC & Chem 7: 11/14/16 16:47 11/14/16 07:22 Labs: Abnormal Lab Results - Last 24 Hours (Table) 11/14/16 Range/Units 16:47 RBC 3.45 L (4.30-5.90) m/uL Hgb 10.7 L (13.0-17.5) gm/dL Hct 32.0 L (39.0-53.0) % Assessment and Plan Plan: Impression/plan: 1. 86-year-old white male status post EGD for upper GI bleed 2. Await results of biopsy 3. No indication for acute surgical intervention at this time 4. Hemoglobin stable, no further evidence of bleeding
[2016-11-15] MEDS: PANTOPRAZOLE 40 MG/10 ML VIAL IV SCH (08:41)
[2016-11-15 09:00] LABS: Anion Gap 7 mmol/L; Blood Urea Nitrogen 19 mg/dL (9-20); Calcium 9.1 mg/dL (8.4-10.2); Carbon Dioxide 24 mmol/L (22-30); Chloride 111 mmol/L (98-107); Glucose 97 mg/dL (74-99); Non-African American GFR(MDRD) >60 (>60 ml/min/1.73 sqM); Sodium 142 mmol/L (137-145)
[2016-11-15 09:49] VITALS: BP 162/97; PULSE 83; RESP 18; TEMP 97.8
--- NOTE | 2016-11-15 11:26 | PN ---
DATE OF SERVICE: 11/14/2016 This is an 86-year-old gentleman who was admitted with upper GI bleeding and last seen and evaluated the patient with the nurse practitioner. Please refer to the nurse practitioner's notes and impression document as ascribed for information. Prognosis guarded. Further recommendations to follow.
--- NOTE | 2016-11-15 12:55 | PN ---
DATE OF SERVICE: 11/15/2106 The patient is an 86-year-old pleasant, white male admitted to the hospital 2 days ago with acute upper gastrointestinal bleed. He underwent an upper endoscopy 2 days ago that showed a 2 cm and deep antral ulcer with raised margins and multiple biopsies were done. Presently on IV Protonix 40 mg every 12 hours and he is doing better. He denies any abdominal pain. No further episodes of bleeding. He had 1 black, tarry stool this morning. On physical examination, appears comfortable in no apparent distress. Vital signs are stable. Blood pressure is 121/53, pulse rate 78, temperature 97. HEENT: Unremarkable. Conjunctivae pink. Sclerae anicteric. Oral cavity, no lesions. NECK: No JVD or lymph node enlargement. CHEST: Clear to auscultation. HEART: Regular rate and rhythm. ABDOMEN: Soft. Bowel sounds are positive. No organomegaly. EXTREMITIES: No pedal edema. SKIN: No rashes. NEURO: Alert and oriented x3. No focal deficits. LABS: Hemoglobin is 10.7, WBC 5.2, platelets normal. IMPRESSION: Acute upper gastrointestinal bleed secondary to gastric prepyloric ulcer, presently hemodynamically stable and no active bleeding for the last 48 hours. Hemoglobin stable at 10.7. RECOMMENDATIONS: 1. Continue with Protonix 40 mg b.i.d. 2. Advance diet to soft diet. 3. He can be discharged home with outpatient follow up in 2 weeks
--- NOTE | 2016-11-15 16:31 | DS ---
DATE OF ADMISSION: 11/13/2016 DATE OF DISCHARGE: 11/15/2016 FINAL DIAGNOSES: 1. Acute upper gastrointestinal bleed, status post EGD reporting 2 cm antral ulcer without any active bleeding without any gastric outlet obstruction, severe small esophageal varices. 2. Acute blood loss anemia secondary to above. 3. Gastric outlet obstruction suspected at the time of admission. 4. Hypertension. 5. Coronary artery disease. 6. History of myocardial infarction. Coronary artery bypass grafting. 7. Hyperlipidemia. 8. Degenerative joint disease. 9. History of prostate cancer and prostatectomy, radiation. 10. Hyperchloremia. DISCHARGE DISPOSITION: The patient is being discharged in stable condition with guarded prognosis. Discharged cleared by multiple consultants. HISTORY OF PRESENT ILLNESS: This 86-year-old gentleman with a past medical history of multiple medical problems was admitted with acute GI bleed and EGD showed 2 cm antral ulcer in the CAT scan. Pyloric outlet obstruction was suspected, but; however, seen by Dr. Blandon and Dr. Sorensen. Cleared the patient for discharge. On exam, vitals are stable. CARDIOVASCULAR: S1, S2. ABDOMEN: Soft, nontender. No mass palpable. CENTRAL NERVOUS SYSTEM: No focal deficits. Hemoglobin 10.7. Discharge advice and medications: 1. Diet is cardiac. 2. Activity limited until follow-up. 3. Follow-up with Dr. Blayne Chand in 2 to 3 days. 4. CBC, BMP with Dr. Blayne Chand. 5. Follow-up with Dr. Sorensen in 2 weeks. 6. Follow-up with Dr. Blandon as recommended. 7. Vasotec 10 mg p.o. b.i.d. 8. Niaspan 100 milligrams q.h.s. 9. Protonix 40 mg b.i.d. 10. Zocor 40 mg q.h.s. 11. Hold antiplatelet agents to restart in the outpatient setting in 1 to 2 weeks or when the patient is stable. MTDD
== END 2016-11-15 15:10 | disposition home or self-care (01) | DRG 378 ==
LOC: EC 00:15 → 5MS5E 04:29
PROVIDERS: ADMIT Hospitalist; ATTEND Hospitalist
PROC: 0DB68ZX Excision of Stomach, Via Natural or Artificial Opening Endoscopic, Diagnostic (ICD-10-PCS; principal; 2016-11-13 07:30)
DX: K92.0 Hematemesis (principal); D62 Acute posthemorrhagic anemia; K25.9 Gastric ulcer, unspecified as acute or chronic, without hemorrhage or perforation; Z95.1 Presence of aortocoronary bypass graft; E87.8 Other disorders of electrolyte and fluid balance, not elsewhere classified; I10 Essential (primary) hypertension; K21.0 Gastro-esophageal reflux disease with esophagitis; K44.9 Diaphragmatic hernia without obstruction or gangrene; I85.00 Esophageal varices without bleeding; I25.10 Atherosclerotic heart disease of native coronary artery without angina pectoris; E78.5 Hyperlipidemia, unspecified; I25.2 Old myocardial infarction; G89.29 Other chronic pain; M54.9 Dorsalgia, unspecified; M19.91 Primary osteoarthritis, unspecified site; Z85.46 Personal history of malignant neoplasm of prostate; Z92.3 Personal history of irradiation; Z90.49 Acquired absence of other specified parts of digestive tract; Z90.79 Acquired absence of other genital organ(s); Z87.891 Personal history of nicotine dependence; Z79.82 Long term (current) use of aspirin; Z79.899 Other long term (current) drug therapy
CPT/HCPCS: 36415; 43239; 71020; 74000; 74177; 80048; 80053; 81003; 82150; 82272; 83605; 83690; 84484; 85025; 85027; 85610; 88305; 88342; 96361; 96374; 99285

== ENCOUNTER → 2016-11-17 | Outpatient (CLI) | payer MEDICARE, BC ==
[2016-11-17 08:08] LABS: Basophils % (A) 1 %; CH 30.5; CHCM 32.6; Eosinophils % (A) 1 %; HCT 33.6 % (39.0-53.0); HDW 2.54; HGB 11.5 gm/dL (13.0-17.5); Luc # (Auto) 0.16; Luc % (Auto) 4; Lymphocytes # (A) 0.4 k/uL (1.0-4.8); Lymphocytes % (A) 11 %; MCH 32.1 pg (25.0-35.0); MCHC 34.2 g/dL (31.0-37.0); Mean Platelet Volume 7.1; Monocytes # (A) 0.5 k/uL (0-1.0); Monocytes % (A) 13 %; Neutrophils # (A) 2.7 k/uL (1.3-7.7); Neutrophils % (A) 70 %; RBC 3.58 m/uL (4.30-5.90); WBC 3.8 k/uL (3.8-10.6); WBC (Perox) 4.14
[2016-11-17 08:21] LABS: Anion Gap 12 mmol/L; Blood Urea Nitrogen 16 mg/dL (9-20); Calcium 9.2 mg/dL (8.4-10.2); Carbon Dioxide 22 mmol/L (22-30); Chloride 108 mmol/L (98-107); Glucose 131 mg/dL (74-99); Non-African American GFR(MDRD) 54 (>60 ml/min/1.73 sqM); Potassium 3.9 mmol/L (3.5-5.1); Sodium 142 mmol/L (137-145)
== END | disposition home or self-care (01) ==
LOC: LABWHC1 07:30
PROVIDERS: ATTEND Hospitalist
DX: D64.9 Anemia, unspecified (principal)
CPT/HCPCS: 36415; 80048; 85025

== ENCOUNTER 2016-12-09 09:59 | Day surgery (SDC) | payer MEDICARE, BC ==
[2016-12-04 15:44] VITALS: BMI 24.3
[~2016-12-09 09:59] MED LIST: LACTATED RINGERS 1,000 ML IV SCH; LIDOCAINE 1% 20 ML VIAL (10MG/ML) FOR IV START INTRADERMA PRN
[2016-12-09 10:11] VITALS: RESP 16; TEMP 97.1
[2016-12-09] MEDS ORDERED: LIDOCAINE 1% INJ 10MG/ML (20 ML MDV) ONE (10:24)
[2016-12-09] MEDS ORDERED: PROPOFOL 10 MG/ML 20 ML VIAL IV ONE (10:24)
--- NOTE | 2016-12-09 10:37 | P.PCN ---
Date of Procedure: 12/09/16 Procedure(s) Performed: BRIEF HISTORY: Patient is a 86-year-old, pleasant, white male, scheduled for an upper endoscopy as a part of follow-up of gastric ulcer noted on recent upper endoscopy done 3 weeks ago for acute upper GI bleed. The upper endoscopy revealed 2 cm antral ulcer with irregular and raised margins and biopsies showed high-grade dysplasia. He is hence scheduled for repeat upper endoscopy with more biopsies. In the meantime patient is doing well. He remains on Protonix 40 mg daily. No nausea vomiting. PROCEDURE PERFORMED: Esophagogastroduodenoscopy with biopsy. 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 IV sedation per anesthesia. PROCEDURE: After informed consent was obtained, the patient was brought into the endoscopy unit. IV sedation was administered by Anesthesia under continuous monitoring. Initially the Olympus GIF-140 video endoscope was inserted into the mouth. Esophagus intubated without any difficulty. It was gradually advanced into the stomach and duodenum and carefully examined. The bulb and the second part of the duodenum appeared normal. Pylorus is slightly deformed. The scope at this time was withdrawn to the stomach, adequately insufflated with air, and upon careful examination, in the antrum there was a 2 cm irregular ulcer with surrounding mucosal erythema and raised margins as well as mucosal friability. No active bleeding noted. Multiple biopsies were done from the ulcer and surrounding areas. The body, cardia and the fundus appeared normal. The scope was then withdrawn into the esophagus. The GE junction was located at 40 cm from the incisors. The esophagus appeared normal. There were few superficial erosions noted but no ulcerations seen and the patient tolerated the procedure well. IMPRESSION: 1. 2 cm superficial antral ulcer with surrounding mucosal erythema friability and raised margins status was multiple biopsies to rule out neoplasm. 2. LA grade B reflux esophagitis RECOMMENDATIONS: The findings of this examination were discussed with the patient as well as his family. He was advised to follow with the biopsy results and he'll be seen in the office in a week.
[2016-12-09 10:59] VITALS: BP 144/82; PULSE 68
== END 2016-12-09 11:20 | disposition home or self-care (01) ==
LOC: ORWHC2ENDO 09:59
PROVIDERS: ATTEND Internal Medicine Gastroenterology
DX: C16.3 Malignant neoplasm of pyloric antrum (principal); K25.4 Chronic or unspecified gastric ulcer with hemorrhage; K20.9 Esophagitis, unspecified; I10 Essential (primary) hypertension; E78.5 Hyperlipidemia, unspecified; Z79.899 Other long term (current) drug therapy
CPT/HCPCS: 88305; 88342; 43239; J2001; J2704

== ENCOUNTER → 2016-12-19 | Outpatient (CLI) | payer MEDICARE, BC ==
--- NOTE | 2016-12-20 09:52 | PE ---
EXAMINATION TYPE: PET CT fusion skull to thigh DATE OF EXAM: 12/19/2016 2:08 PM CLINICAL HISTORY: 86-year-old male gastric cancer, initial staging. Patient also with history of pros bell cancer treated with surgery and 2002 and radiation on December 2015. TECHNIQUE: Following the intravenous administration of 15.63 mCi of F-18 FDG, whole body images are performed from the skull base to the midthigh. Images are reviewed on the computer in the coronal, axial, and sagittal planes. Reconstructed rotating images are created on independent workstation and reviewed on the computer. A localization and attenuation correction CT is performed in conjunction with the PET scan. Glucose level: 93 mg/dL CTDI: 4.77 mGy DLP: 424.05 mGy-cm COMPARISON: Correlation CT 11/13/2016 and 11/25/2012 FINDINGS: PET: Physiologic FDG uptake within the neck. Mild focal FDG uptake in the right hilum, maximal SUV 2.2 likely on a postinflammatory basis. Focal circumferential wall thickening along the gastric antrum shows intense hypermetabolism, maximal SUV 8.2. There is interval improvement in the patient's gastric distention. A very large right upper pole renal cyst measures 12.6 cm and shows no abnormal uptake. An additional medial 5.4 cm right renal cyst also shows no significant FDG uptake. There is some circumferential wall thickening of the distal sigmoid and rectum with associated intens e FDG uptake, maximal SUV 8.0. Otherwise, physiologic FDG uptake within the abdomen and pelvis. ATTENUATION CORRECTION CT: Rightward nasal septal deviation. There is partial opacification of the right maxillary sinus suggest ing moderate chronic sinus disease. Mastoid air cells are well pneumatized. No cervical lymphadenopat hy seen. Median sternotomy wires are present with post-CABG clips in the mediastinum. Heart is borderline to m ildly enlarged with pronounced left atrial dilatation. 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 The lower descending thoracic aort a is also mildly aneurysmal at 3.1 cm. Scattered mild atherosclerotic calcifications with bovine conf iguration to the aortic arch. Scattered nonenlarged mediastinal lymph nodes are present. There are calcified lymph nodes in the rig ht hilum suggesting prior granulomatous disease. Calcified granuloma right apex and some strandy are as of atelectasis within the lungs. No pleural effusion. Moderate atherosclerotic calcifications within the abdominal aorta and mild within the iliac arteries . Redemonstrated fusiform 3.0 cm aneurysm of the infrarenal abdominal aorta. Scattered mild to moderate stool throughout the colon. No dilated small bowel, free fluid, or free ai r. There is sigmoid diverticulosis without pericolonic inflammatory change. No mesenteric or retroper itoneal lymphadenopathy. Multiple phleboliths in the pelvis along with surgical clips in the inguinal regions and pelvic floor suggesting treatment for previous prostate cancer. Bones: Some degenerative changes of the hips and pubic symphysis. No osseous destructive process. IMPRESSION: 1. Focal intense hypermetabolism in the region of the gastric antrum compatible with patient's known gastric carcinoma. No evidence for metastatic disease. 2. Circumferential wall thickening of the distal sigmoid and rectum with associated intense hypermeta bolism. Correlate for possible etiologies including colitis and posttreatment change from prior radia tion therapy to the prostate bed. Consider direct visualization to exclude a mucosal abnormality. 3. Some incidental findings including diffusely aneurysmal thoracic aorta measuring up to 4.0 cm jason g the ascending aorta and AAA measuring 3.0 cm. 4. Cardiomegaly with pronounced left atrial dilatation, two large right renal cysts measuring up to 1 2.6 cm, and sigmoid diverticulosis.
== END | disposition home or self-care (01) ==
LOC: RADPETMAIN 10:00
PROVIDERS: ATTEND Internal Medicine Hematology & Oncology
DX: C16.9 Malignant neoplasm of stomach, unspecified (principal); I51.7 Cardiomegaly; N28.1 Cyst of kidney, acquired; K57.30 Diverticulosis of large intestine without perforation or abscess without bleeding; K63.89 Other specified diseases of intestine; K62.89 Other specified diseases of anus and rectum
CPT/HCPCS: 78815; A9552

== ENCOUNTER 2016-12-25 01:46 | Inpatient (IN) | payer MEDICARE, BC ==
[2016-12-25] MEDS ORDERED: SODIUM CHLORIDE 0.9% 1,000 ML IV STA (02:39)
--- NOTE | 2016-12-25 02:50 | XR ---
EXAM: XR Abdomen Complete, 2 or More Views CLINICAL HISTORY: Pain. History of CABG, hernia 2, prostatectomy, cholecystectomy. TECHNIQUE: Two frontal upright views of the abdomen/pelvis. COMPARISON: Abdominal radiograph dated 11/13/16, CT abdomen pelvis dated 11/13/16 FINDINGS: Intraperitoneal space: No free air. Gastrointestinal tract: Nonobstructive bowel gas pattern. Soft tissues: Cholecystectomy clips. Pelvic surgical clips. Partially visualized median sternotomy wires. IMPRESSION: 1. Nonobstructive bowel gas pattern. 2. No free air.
--- NOTE | 2016-12-25 03:01 | ED ---
Abdominal Pain HPI - General Source: patient, RN notes reviewed, old records reviewed Mode of arrival: ambulatory Limitations: no limitations <Tiffany Aguilar - Last Filed: 12/25/16 04:46> <Carlos Conrad - Last Filed: 12/25/16 07:59> - General Chief Complaint: Abdominal Pain Stated Complaint: back pain/unable to go to bathroom x4 Time Seen by Provider: 12/25/16 02:03 - History of Present Illness Initial Comments: This is a pleasant 86-year-old male with chief complaint of not being able to have a bowel movement for 4 days. He reports he was recently diagnosed with stomach cancer and has a bleeding stomach ulcer. Patient states that he has a scheduled appointment for surgery to have the ulcer and cancer removed in one week in [place]. Patient states that he also has some chronic back pain for the past few weeks which has been made worse because he has not been able to have a bowel movement. Patient states he has no fever or chills. Denies any nausea or vomiting. She reports that his abdomen feels very heavy and distended. (Tiffany Aguilar) - Related Data Home Medications Medication Instructions Recorded Confirmed Niacin [Niaspan] 1,000 mg PO HS 11/12/14 12/25/16 Simvastatin [Zocor] 40 mg PO HS 11/12/14 12/25/16 Enalapril [Vasotec] 10 mg PO BID 11/13/16 12/25/16 Previous Rx's Medication Instructions Recorded Pantoprazole Sodium [Protonix] 40 mg PO BID #60 tablet. 11/15/16 Allergies Allergy/AdvReac Type Severity Reaction Status Date / Time isosorbide mononitrate Allergy Unknown Verified 12/25/16 07:13 [From Imdur] lisinopril Allergy Unknown Verified 12/25/16 07:13 rosuvastatin calcium Allergy Unknown Verified 12/25/16 07:13 [From Crestor] solifenacin succinate Allergy Unknown Verified 12/25/16 07:13 [From Vesicare] Review of Systems ROS Other: All systems not noted in ROS Statement are negative. <Tiffany Aguilar - Last Filed: 12/25/16 04:46> ROS Other: All systems not noted in ROS Statement are negative. <Carlos Conrad - Last Filed: 12/25/16 07:59> ROS Statement: Those systems with pertinent positive or pertinent negative responses have been documented in the HPI. Past Medical History Past Medical History: Coronary Artery Disease (CAD), Cancer, GERD/Reflux, Hyperlipidemia, Hypertension, Myocardial Infarction (CT), Osteoarthritis (OA), Prostate Disorder Additional Past Medical History / Comment(s): Prostate cancer with prostatectomy and radiation-pt states PSA has increased lately, occasional back pain, sinus problems. hematemesis, stomach cancer Last Myocardial Infarction Date:: 1984 History of Any Multi-Drug Resistant Organisms: None Reported Past Surgical History: Cholecystectomy, Coronary Bypass/CABG, Heart Catheterization, Hernia Repair, Orthopedic Surgery, Prostate Surgery Additional Past Surgical History / Comment(s): CABG 3 vessel in 1984, R rotator cuff repair, bilateral cataract removal, inguinal hernia repairs x 2, hemorrhoidectomy. Past Anesthesia/Blood Transfusion Reactions: No Reported Reaction Past Psychological History: No Psychological Hx Reported Additional Psychological History / Comment(s): Pt resides with his spouse. He is independent. He walks 3 miles daily on his treadmill. He lived in [place] and moved to the [facility] in 1956. He reads in Russian but writes better in Russian. Smoking Status: Former smoker Past Alcohol Use History: None Reported Additional Past Alcohol Use History / Comment(s): smoked briefly quit 1952 Past Drug Use History: None Reported - Past Family History Father Family Medical History: Myocardial Infarction (CT) Additional Family Medical History / Comment(s): Father had a CT at the age of 55 yrs. Mother Family Medical History: No Reported History Additional Family Medical History / Comment(s): Mother was healthy and lived into her 80's. <Tiffany Aguilar - Last Filed: 12/25/16 04:46> General Exam Limitations: no limitations General appearance: alert, in no apparent distress Head exam: Present: atraumatic, normocephalic, normal inspection Eye exam: Present: normal appearance, PERRL, EOMI. Absent: scleral icterus, conjunctival injection, periorbital swelling ENT exam: Present: normal exam, mucous membranes moist Neck exam: Present: normal inspection. Absent: tenderness, meningismus, lymphadenopathy Respiratory exam: Present: normal lung sounds bilaterally. Absent: respiratory distress, wheezes, rales, rhonchi, stridor Cardiovascular Exam: Present: regular rate, normal rhythm, normal heart sounds. Absent: systolic murmur, diastolic murmur, rubs, gallop, clicks GI/Abdominal exam: Present: soft, distended, normal bowel sounds. Absent: tenderness, guarding, rebound, rigid Extremities exam: Present: normal inspection, full ROM, normal capillary refill. Absent: tenderness, pedal edema, joint swelling, calf tenderness Back exam: Present: normal inspection, tenderness (Patient has some tenderness over the back.) Neurological exam: Present: alert, oriented X3, CN II-XII intact Psychiatric exam: Present: normal affect, normal mood Skin exam: Present: warm, dry, intact, normal color. Absent: rash <Tiffany Aguilar - Last Filed: 12/25/16 04:46> <Carlos Conrad - Last Filed: 12/25/16 07:59> - General Exam Comments Initial Comments: This is a pleasant 86-year-old male. Patient does not appear to be in any acute distress. (Tiffany Aguilar) Course <Tiffany Aguilar - Last Filed: 12/25/16 04:46> <Carlos Conrad - Last Filed: 12/25/16 07:59> Vital Signs 12/25/16 12/25/16 12/25/16 01:54 04:56 06:44 Temperature 97.6 F 97.9 F Pulse Rate 74 94 83 Respiratory 16 18 18 Rate Blood Pressure 188/86 153/91 133/82 O2 Sat by Pulse 97 96 97 Oximetry - Reevaluation(s) Reevaluation #1: 12/25/16 04:37 At this time patient's received a milk of molasses enema. Patient has had no significant bowel movement at this time. (Tiffany Aguilar) Reevaluation #2: 12/25/16 04:46 If 445 the patient will be endorsed to Dr. Steinberg. Currently pending CAT scan. ( Tiffany Aguilar) Medical Decision Making - Lab Data Result diagrams: 12/25/16 03:00 12/25/16 03:00 - Radiology Data Radiology results: report reviewed <Tiffany Aguilar - Last Filed: 12/25/16 04:46> - Lab Data Result diagrams: 12/25/16 03:00 12/25/16 03:00 <Carols Conrad - Last Filed: 12/25/16 07:59> - Medical Decision Making This is a pleasant 86-year-old male with chief complaint of abdominal pain because he has not been able to have a bowel movement 4 days. He does have a history of gastric cancer. He is scheduled to have surgery in a week to have her removed. Patient reports she also has some back pain that is worse with movements. (Tiffany Aguilar) - Lab Data Lab Results 12/25/16 12/25/16 12/25/16 Range/Units 03:00 03:00 03:00 WBC 5.7 (3.8-10.6) k/uL RBC 3.86 L (4.30-5.90) m/uL Hgb 11.5 L (13.0-17.5) gm/dL Hct 35.6 L (39.0-53.0) % MCV 92.1 (80.0-100.0) fL MCH 29.9 (25.0-35.0) pg MCHC 32.4 (31.0-37.0) g/dL RDW 13.9 (11.5-15.5) % Plt Count 173 (150-450) k/uL Neutrophils % 72 % Lymphocytes % 14 % Monocytes % 9 % Eosinophils % 2 % Basophils % 1 % Neutrophils # 4.1 (1.3-7.7) k/uL Lymphocytes # 0.8 L (1.0-4.8) k/uL Monocytes # 0.5 (0-1.0) k/uL Eosinophils # 0.1 (0-0.7) k/uL Basophils # 0.1 (0-0.2) k/uL PT 10.7 (9.0-12.0) sec INR 1.1 (<1.1) APTT 23.3 (22.0-30.0) sec Sodium 142 (137-145) mmol/L Potassium 4.1 (3.5-5.1) mmol/L Chloride 109 H (98-107) mmol/L Carbon Dioxide 22 (22-30) mmol/L Anion Gap 11 mmol/L BUN 23 H (9-20) mg/dL Creatinine 1.11 (0.66-1.25) mg/dL Est GFR (MDRD) Af Amer >60 (>60 ml/min/1.73 sqM) Est GFR (MDRD) Non-Af >60 (>60 ml/min/1.73 sqM) Glucose 104 H (74-99) mg/dL Calcium 9.7 (8.4-10.2) mg/dL Total Bilirubin 1.5 H (0.2-1.3) mg/dL AST 25 (17-59) U/L ALT 24 (21-72) U/L Alkaline Phosphatase 56 (38-126) U/L Total Protein 7.2 (6.3-8.2) g/dL Albumin 3.9 (3.5-5.0) g/dL Amylase 88 (30-110) U/L Lipase 84 (23-300) U/L Urine Color Urine Appearance (Clear) Urine pH (5.0-8.0) Ur Specific [place] (1.001-1.035) Urine Protein (Negative) Urine Glucose (UA) (Negative) Urine Ketones (Negative) Urine Blood (Negative) Urine Nitrite (Negative) Urine Bilirubin (Negative) Urine Urobilinogen (<2.0) mg/dL Ur Leukocyte Esterase (Negative) Urine WBC (0-5) /hpf Ur Squamous Epith Cells (0-4) /hpf Urine Mucus (None) /hpf 12/25/16 Range/Units 03:00 WBC (3.8-10.6) k/uL RBC (4.30-5.90) m/uL Hgb (13.0-17.5) gm/dL Hct (39.0-53.0) % MCV (80.0-100.0) fL MCH (25.0-35.0) pg MCHC (31.0-37.0) g/dL RDW (11.5-15.5) % Plt Count (150-450) k/uL Neutrophils % % Lymphocytes % % Monocytes % % Eosinophils % % Basophils % % Neutrophils # (1.3-7.7) k/uL Lymphocytes # (1.0-4.8) k/uL Monocytes # (0-1.0) k/uL Eosinophils # (0-0.7) k/uL Basophils # (0-0.2) k/uL PT (9.0-12.0) sec INR (<1.1) APTT (22.0-30.0) sec Sodium (137-145) mmol/L Potassium (3.5-5.1) mmol/L Chloride (98-107) mmol/L Carbon Dioxide (22-30) mmol/L Anion Gap mmol/L BUN (9-20) mg/dL Creatinine (0.66-1.25) mg/dL Est GFR (MDRD) Af Amer (>60 ml/min/1.73 sqM) Est GFR (MDRD) Non-Af (>60 ml/min/1.73 sqM) Glucose (74-99) mg/dL Calcium (8.4-10.2) mg/dL Total Bilirubin (0.2-1.3) mg/dL AST (17-59) U/L ALT (21-72) U/L Alkaline Phosphatase (38-126) U/L Total Protein (6.3-8.2) g/dL Albumin (3.5-5.0) g/dL Amylase (30-110) U/L Lipase (23-300) U/L Urine Color Light Yellow Urine Appearance Clear (Clear) Urine pH 5.0 (5.0-8.0) Ur Specific [place] 1.008 (1.001-1.035) Urine Protein Negative (Negative) Urine Glucose (UA) Negative (Negative) Urine Ketones Negative (Negative) Urine Blood Negative (Negative) Urine Nitrite Negative (Negative) Urine Bilirubin Negative (Negative) Urine Urobilinogen <2.0 (<2.0) mg/dL Ur Leukocyte Esterase Negative (Negative) Urine WBC <1 (0-5) /hpf Ur Squamous Epith Cells <1 (0-4) /hpf Urine Mucus Rare H (None) /hpf - Radiology Data Nonobstructive bowel gas pattern. No free air. (Tiffany Aguilar) Disposition <Tiffany Aguilar - Last Filed: 12/25/16 04:46> <Carlos Conrad - Last Filed: 12/25/16 07:59> Clinical Impression: Abdominal pain, Constipation, Compression fracture Disposition: ADMITTED IP TO THIS [facility] Condition: Fair
[2016-12-25 03:27] LABS: INR 1.1 (<1.1); Partial Thromboplastin Time 23.3 sec (22.0-30.0); Prothrombin Time 10.7 sec (9.0-12.0)
[2016-12-25] MEDS ORDERED: MORPHINE SULFATE 2 MG/ML SYRINGE IVP ONE (03:32)
[2016-12-25 03:33] LABS: Appearance,Urine Clear (Clear); Bilirubin,Urine Negative (Negative); Glucose,Urine (UA) Negative (Negative); Ketones,Urine Negative (Negative); Leukocyte Esterase,Urine Negative (Negative); Mucus,Urine Rare /hpf; Nitrite,Urine Negative (Negative); Particle Count 495; Protein,Urine Negative (Negative); Specific Gravity,Urine 1.008 (1.001-1.035); Squamous Epithelial Cell,Urine <1 /hpf (0-4); UA Billing (MACRO vs. MICRO) CHEM; Urobilinogen,Urine <2.0 mg/dL (<2.0); WBC,Urine <1 /hpf (0-5)
[2016-12-25 03:34] LABS: Basophils # (A) 0.1 k/uL (0-0.2); Basophils % (A) 1 %; CH 30.4; CHCM 33.1; Eosinophils # (A) 0.1 k/uL (0-0.7); Eosinophils % (A) 2 %; HCT 35.6 % (39.0-53.0); HDW 2.84; HGB 11.5 gm/dL (13.0-17.5); Luc # (Auto) 0.18; Luc % (Auto) 3; Lymphocytes # (A) 0.8 k/uL (1.0-4.8); Lymphocytes % (A) 14 %; MCH 29.9 pg (25.0-35.0); MCHC 32.4 g/dL (31.0-37.0); MCV 92.1 fL (80.0-100.0); Mean Platelet Volume 6.9; Monocytes # (A) 0.5 k/uL (0-1.0); Monocytes % (A) 9 %; Neutrophils # (A) 4.1 k/uL (1.3-7.7); Neutrophils % (A) 72 %; RBC 3.86 m/uL (4.30-5.90); RDW 13.9 % (11.5-15.5); WBC 5.7 k/uL (3.8-10.6); WBC (Perox) 5.83
[2016-12-25 03:38] LABS: ALT 24 U/L (21-72); AST 25 U/L (17-59); Alkaline Phosphatase 56 U/L (38-126); Amylase 88 U/L (30-110); Anion Gap 11 mmol/L; Blood Urea Nitrogen 23 mg/dL (9-20); Calcium 9.7 mg/dL (8.4-10.2); Carbon Dioxide 22 mmol/L (22-30); Chloride 109 mmol/L (98-107); Glucose 104 mg/dL (74-99); Non-African American GFR(MDRD) >60 (>60 ml/min/1.73 sqM); Potassium 4.1 mmol/L (3.5-5.1); Sodium 142 mmol/L (137-145); Total Bilirubin 1.5 mg/dL (0.2-1.3); Total Protein 7.2 g/dL (6.3-8.2)
[2016-12-25] MEDS ORDERED: SODIUM CHLORIDE 0.9% 1,000 ML IV SCH ×2 (04:45→08:00)
[2016-12-25] MEDS: RX INFO: IV CONTRAST WAS GIVEN 1 EACH MISC MISCELLANE PRN (05:43)
--- NOTE | 2016-12-25 06:00 | CT ---
EXAM: CT Abdomen and Pelvis With Intravenous Contrast CLINICAL HISTORY: Pain. CABG, hernia 2, prostatectomy, cholecystectomy, constipation. TECHNIQUE: Axial computed tomography images of the abdomen and pelvis with intravenous contrast. CTDI is 7 mGy and DLP is 368 mGy-cm and CTDI is 8 mGy and DLP is 239 mGy-cm This CT exam was performed using one or more of the following dose reduction techniques: automated exposure control, adjustment of the mA and/or kV according to patient size, and/or use of iterative reconstruction technique. Coronal and sagittal reformatted images were created and reviewed. COMPARISON: CT abdomen pelvis date 11/13/16. FINDINGS: Lower thorax: No acute findings. Partially imaged median sternotomy wires and mediastinal surgical clips. ABDOMEN: Liver: Unremarkable. Gallbladder and bile ducts: Cholecystectomy. Pancreas: Fatty pancreatic atrophy. Spleen: Unremarkable. Adrenals: Unremarkable. Kidneys and ureters: Redemonstrated 13 cm and 5 cm right renal cysts. The larger cyst again cotains thin calcified septations. Slightly increased size of a left renal cyst, now measuring 3.8 cm long axis, previously 3.5 cm. Layering calcifications are again noted posteriorly. Left renal atrophy. Stomach and bowel: Mild distention of fluid-filled small bowel loops at the right lower quadrants. Large amount of colonic stool suggesting constipation. Colonic diverticulosis without evidence of diverticulitis. Appendix: No evidence of appendicitis. PELVIS: Bladder: Nondistended. Reproductive: Unremarkable as visualized. ABDOMEN and PELVIS: Intraperitoneal space: Unremarkable. No free air. No significant fluid collection. Bones/joints: Interval compression deformity at the T10 vertebral body with approximately 25% height loss. No retropulsion or significant malalignment. Redemonstrated moderate height loss at the L1 and L2 vertebral bodies. Advanced degenerative disc changes at L4-5 are unchanged. Soft tissues: Bilateral inguinal surgical clips. Vasculature: Unchanged infrarenal abdominal aortic aneurysm, measuring up to 3 cm AP. No evidence of rupture. Lymph nodes: No enlarged lymph nodes. IMPRESSION: 1. Mild distention of fluid-filled small bowel loops at the right lower quadrants may represent an enteritis or partial obstruction. 2. Large amount of colonic stool suggesting constipation. 3. Colonic diverticulosis without evidence of diverticulitis. 4. Slightly increased size of a mildly complex left renal cyst, now measuring 3.8 cm long axis, previously 3.5 cm. Consider follow-up in 3 months. 5. Interval compression deformity at the T10 vertebral body with approximately 25% height loss. No retropulsion or significant malalignment. 6. Unchanged infrarenal abdominal aortic aneurysm, measuring up to 3 cm AP. No evidence of rupture.
[2016-12-25] MEDS ORDERED: ONDANSETRON 4 MG/2 ML VIAL IVP PRN (07:55)
[2016-12-25] MEDS ORDERED: NALOXONE 0.4 MG/ML 1 ML VIAL IV PRN (07:55)
[2016-12-25] MEDS ORDERED: ACETAMINOPHEN TAB 325 MG TAB PO PRN (07:55)
[2016-12-25] MEDS ORDERED: PEG 3350-NA SULF,BICARB,CL/KCL 4,000 ML BOTTLE PO ONE (07:57)
[2016-12-25] MEDS ORDERED: FAMOTIDINE 20 MG TAB PO SCH (09:00)
[2016-12-25 10:01] VITALS: BP 134/75; PULSE 90; RESP 20; TEMP 97.4
[2016-12-25] MEDS ORDERED: ACETAMINOPHEN TAB 500 MG TAB PO PRN (10:22)
--- NOTE | 2016-12-25 11:18 | HP ---
DATE OF ADMISSION: Patient is an 86-year-old, came in because he did not have bowel movement for 4 days. Patient also had a fall, appears to be a mechanical fall and had a compression fracture of T10 vertebra without any compression symptoms and patient was found to have compression fracture and constipation and patient is already receiving GoLYTELY ordered from ER for constipation and will get PT and OT consultation and will also consult Orthopedic Surgery for brace recommendations and depending on PT and OT recommendations, will decide on subacute rehab or home physical therapy and patient denied any blood in the stools and patient was diagnosed recently with stomach cancer, supposed to see an oncologist next . Patient was complaining of severe pain in the back. Unable to get up, although patient denied any weakness or tingling or numbness anywhere. REVIEW OF SYSTEMS: CONSTITUTIONAL: No fever, no malaise, no fatigue. HEENT: No recent visual problems or hearing problems. Denied any sore throat. CARDIOVASCULAR: No chest pain, orthopnea, PND, no palpitations, no syncope. PULMONARY: No shortness of breath, no cough, no hemoptysis. GASTROINTESTINAL: No diarrhea, no nausea, no vomiting, no abdominal pain. Normoactive bowel sounds. NEUROLOGICAL: No headaches, no weakness, no numbness. HEMATOLOGICAL: Denies any bleeding or petechiae. GENITOURINARY: Denies any burning micturition, frequency, or urgency. MUSCULOSKELETAL/RHEUMATOLOGICAL: As described in HPI. ENDOCRINE: Denies any polyuria or polydipsia. The rest of the 14 point review of systems is negative. Home medications include: 1. Niacin. 2. Enalapril. 3. Pantoprazole. PAST MEDICAL HISTORY: Gastroesophageal reflux disease, hyperlipidemia, recent history of stomach cancer. Patient as per the documentation has coronary artery disease, although not on any medication for coronary artery disease. Patient has prostate cancer with status post prostatectomy. Patient apparently had CABG and cardiac catheterization in the past, 3-vessel CABG in 1984. SOCIAL HISTORY: Former smoker. Briefly smoked of for a few the ears and quit smoking in 1952. Denied any alcohol abuse or any drug abuse. FAMILY HISTORY: Father had myocardial infarction at age 55, mother lived up until her late 80's. PHYSICAL EXAMINATION: Temperature 97.4, pulse of 77, respiratory rate of 20, blood pressure is 164/92. GENERAL: The patient is alert and oriented x3, not in any acute distress. Well developed, well nourished. HEENT: Pupils are round and equally reacting to light. EOMI. No scleral icterus. No conjunctival pallor. Normocephalic, atraumatic. No pharyngeal erythema. No thyromegaly. CARDIOVASCULAR: S1 and S2 present. No murmurs, rubs, or gallops. PULMONARY: Chest is clear to auscultation, no wheezing or crackles. EXTREMITIES: No cyanosis, clubbing, or pedal edema. NEUROLOGICAL: Gross neurological examination did not reveal any focal deficits. SKIN: No rashes. MUSCULOSKELETAL: Patient has tenderness in the back in the lower thoracic area, sluggish bowel sounds. No rebound or rigidity. Abdomen is mildly distended and tympanic. LABORATORY DATA: CBC, CMP are abnormal for mildly elevated BUN and creatinine of 23 and 1.11, bilirubin of 1.5. Hemoglobin is 11.5. ASSESSMENT AND PLAN: 1. Mechanical fall and compression fracture. Management as mentioned above. 2. Constipation. Patient already received enemas and is already getting GoLYTELY. After bowel movement we can use opiates. As of now, will try to avoid opiates. Patient will be started ketorolac and Tylenol for pain. Tylenol, although did not appear to help him in the past. 3. Coronary artery disease. Continue with statin. Patient is not on any beta d[place], does not appear to be requesting beta dallas anyways. 4. Hyperlipidemia. 5. Gastroesophageal reflux disease for which patient will be continued on Pepcid. For constipation in the future, will use MiraLax and Senekal-Colace combination. 6. Gastric cancer. Patient will follow up as an outpatient for that next . In the meantime, will get PT and OT consultation.
[2016-12-25] MEDS ORDERED: KETOROLAC 30 MG/ML 1 ML VIAL IVP SCH (12:00)
--- NOTE | 2016-12-25 13:37 | P.CNOR ---
History of Present Illness - [facility] Consult date: 12/25/16 Requesting physician: Jaydon Baker Consult reason: fracture (Multiple compression fractures at T10, L1, L2), back pain (Thoracolumbar pain) History of present illness: Patient is a very pleasant 86-year-old male who is seen and examined at the bedside for further evaluation after we are consulted in regards compression fractures and back pain by Dr. Baker. Patient presented to the emergency department earlier this morning with abdominal pain, constipation and back pain. A CT of the abdomen and pelvis was taken that time which showed evidence of compression fracture. He was able to have a bowel movement in the emergency department. He had since been transferred to the fifth floor. He has had 2 more bowel movements since that time. Patient states at the bedside following his 3 bowel movements today, he has had significant relief of his back pain. Previously he was experiencing significant difficulty with pain in ambulation. He is now able to get up out of the bed on his own without significant difficulty. He was able to ambulate to the end of the hallway with physical therapy without difficulty. Patient states he did sustain a fall approximately 1 week ago but has not had significant difficulty since that time until this morning. He states 2 days ago he walked 2 miles and mowed the grass without difficulty. Family states he walked another 1-2 miles yesterday. Patient states he is known to have stomach cancer is currently scheduled to have further evaluation by surgeon at [facility] next , 12/31/2016. He states this cancer is stage I and they are most likely planning surgical intervention. He currently denies any significant thoracic or lumbar back pain. He denies any lower extremity radiculopathy or weakness bilaterally. At this time he feels he is doing quite well following his 3 bowel movements and may be ready for discharge home. Past Medical History Past Medical History: Coronary Artery Disease (CAD), Cancer, GERD/Reflux, Hyperlipidemia, Hypertension, Myocardial Infarction ([place]), Osteoarthritis (OA), Prostate Disorder, Syncope Additional Past Medical History / Comment(s): Prostate cancer with prostatectomy and radiation-pt states PSA has increased lately, occasional back pain, sinus problems. Recent admission to [facility] 11/13/16 diagnosis of hematemesis- bleeding stomach ulcer, stomach cancer-pt to have surgery at [facility] in one week. Last Myocardial Infarction Date:: 1984 History of Any Multi-Drug Resistant Organisms: None Reported Past Surgical History: Cholecystectomy, Coronary Bypass/CABG, Heart Catheterization, Hernia Repair, Orthopedic Surgery, Prostate Surgery Additional Past Surgical History / Comment(s): 11/13/16 EGD with bx, CABG 3 vessel in 1984, R rotator cuff repair, bilateral cataract removal, inguinal hernia repairs x 2, hemorrhoidectomy. Past Anesthesia/Blood Transfusion Reactions: No Reported Reaction Past Psychological History: No Psychological Hx Reported Additional Psychological History / Comment(s): Pt resides with his spouse. He is independent. He walks 3 miles daily on his treadmill. He lived in [place] and moved to the [facility] in 1956. He reads in Lao but writes better in Vincentian. Pt wants a copy all diagnostic exams sent to [facility] or given to him so he can take them with him to [facility] next week. Smoking Status: Former smoker Past Alcohol Use History: None Reported Additional Past Alcohol Use History / Comment(s): smoked briefly quit 1952 Past Drug Use History: None Reported - Past Family History Father Family Medical History: Myocardial Infarction ([place]) Additional Family Medical History / Comment(s): Father had a [place] at the age of 55 yrs. Mother Family Medical History: No Reported History Additional Family Medical History / Comment(s): Mother was healthy and lived into her 80's. Medications and Allergies Home Medications Medication Instructions Recorded Confirmed Type Niacin [Niaspan] 1,000 mg PO HS 11/12/14 12/25/16 History Simvastatin [Zocor] 40 mg PO HS 11/12/14 12/25/16 History Enalapril [Vasotec] 10 mg PO BID 11/13/16 12/25/16 History Allergies Allergy/AdvReac Type Severity Reaction Status Date / Time isosorbide mononitrate Allergy Unknown Verified 12/25/16 07:13 [From Imdur] lisinopril Allergy Unknown Verified 12/25/16 07:13 rosuvastatin calcium Allergy Unknown Verified 12/25/16 07:13 [From Crestor] solifenacin succinate Allergy Unknown Verified 12/25/16 07:13 [From Vesicare] Physical Examination Physical exam: Patient is awake, alert, and oriented 3 Vital signs stable Good chest excursion with deep inspiration and expiration Examination of lumbar spine reveals skin is intact with no abrasions, lacerations, or bruises; no erythema, purulence or signs of infection No pain with palpation of the thoracolumbar spine Dorsiflexion, plantarflexion, and extensor hallucis longus positive sustained bilaterally Lower extremity strength 5/5 bilaterally Patellar reflex 2+ bilaterally No lower extremity hyperreflexia bilaterally Straight leg test negative bilateral lower extremities Negative Lasegue's test bilaterally No signs or symptoms of DVT; no calf pain No pain with internal and external rotation of the hips bilaterally Neurovascularly intact Results Pertinent studies: CT of abdomen and pelvis: Interval compression fracture deformity at T10 with approximately 10% height loss with no retropulsion; L1 wedging compression fracture deformity proximal 20% height loss; L2 compression fracture deformity approximately 30% height loss centrally; mild distention of fluid filled small bowel loops of the right lower quadrant which may represent antritis or partial obstruction; large amount of colonic stool suggesting constipation; colonic diverticulosis without evidence of diverticulitis; unchanged infrarenal abdominal aortic aneurysm measuring up to 3 cm; slightly increased inside of mild complex left renal cyst measuring 3.8 cm - Labs Result Diagrams: 12/25/16 03:00 12/25/16 03:00 Assessment and Plan (1) T10 vertebral fracture Status: Acute (2) Compression fracture of L1 lumbar vertebra Status: Acute (3) Compression fracture of L2 lumbar vertebra Status: Acute (4) Status post fall Status: Acute (5) Back pain Status: Acute (6) Abdominal pain Status: Acute (7) Constipation Status: Acute Plan: Assessment: Constipation Abdominal pain and back pain; resolved after 3 bowel movements Multiple compression fracture deformities at T10, L1, and 2 of unknown chronicity; CT report states T10 has interval compression as compared to previous study taken on 11/13/2016 Status post fall approximately 1 week ago Plan: 1. After reviewing of imaging, physical examination of the patient, and further discussion with the patient, we'll currently planned to continue with conservative treatment. He has been able to do regular activities of daily without significant difficulty following his recent fall. He presented to the emergency Department after increased abdominal pain and back pain. Imaging did show evidence of constipation. He has since been able to have 3 bowel movements. Since that time, patient states he's had significant relief of his abdominal and back pain. He currently states he is not feeling any significant thoracolumbar pain. Imaging does show evidence of multiple fractures at T10, L1 , and L2 with some stated progression at T10. Given the lack of pain or other symptoms at the patient's thoracolumbar spine, we will avoid bracing as it may not provide any relief. He is also scheduled for further evaluation and consultation with most likely plan for surgical intervention for that he states is stomach cancer. If the patient proceeds forward with this surgery, he may not be able to tolerate bracing. At this time, we will plan to have him follow- up in the outpatient setting in approximately 1 week for further evaluation after his appointment with the surgeon at [facility]. At this time, he may participate in activities as tolerated in regards to his thoracolumbar spine will voiding excessive activities. From an orthopedic spine standpoint, patient is cleared for discharge once cleared by medicine. 2. Medicine to continue following the patient 3. Following discharge, patient may follow-up with Benjy Angeles PA-C or Dr. Marc Richardson [facility] in 1 week for further evaluation ; we'll plan to see the patient on 01/01/2017 or or 01/04/2017. 4. I have discussed this patient detail with Dr. Marc Richardson and he agrees with this plan Time with Patient: Greater than 30
[2016-12-25] MEDS ORDERED: HEPARIN SODIUM,PORCINE 5,000 UNIT/ML 1 ML VIAL SQ SCH (16:00)
[2016-12-25] MEDS ORDERED: PANTOPRAZOLE 40 MG TABLET PO SCH (17:30)
[2016-12-25] MEDS ORDERED: ATORVASTATIN 20 MG TAB PO SCH (21:00)
[2016-12-26] MEDS ORDERED: PANTOPRAZOLE 40 MG TABLET PO SCH (07:30)
[2016-12-26] MEDS ORDERED: SENNOSIDES-DOCUSATE SODIUM 1 EACH TAB PO SCH (09:00)
--- NOTE | 2017-01-12 10:36 | DS ---
DATE OF ADMISSION: 12/25/2016 DATE OF DISCHARGE: 12/25/2016 Patient was discharged on the same day of admission. Please refer to my dictation of H&P for further details. Patient was basically admitted for constipation, which resolved and patient has compression fracture for which Orthopedic Surgery evaluated and ( ) and subsequently patient was discharged on the same. Please refer to my depart summary for the further details of followups and discharge medications.
== END 2016-12-25 15:56 | disposition home or self-care (01) | DRG 552 ==
LOC: EC 01:46 → 5ONC 07:57
PROVIDERS: ADMIT Hospitalist; ATTEND Hospitalist
DX: S22.079A Unspecified fracture of T9-T10 vertebra, initial encounter for closed fracture (principal); C16.9 Malignant neoplasm of stomach, unspecified; S32.019A Unspecified fracture of first lumbar vertebra, initial encounter for closed fracture; S32.029A Unspecified fracture of second lumbar vertebra, initial encounter for closed fracture; N28.1 Cyst of kidney, acquired; Z95.1 Presence of aortocoronary bypass graft; I10 Essential (primary) hypertension; K21.9 Gastro-esophageal reflux disease without esophagitis; K59.00 Constipation, unspecified; E78.5 Hyperlipidemia, unspecified; G89.29 Other chronic pain; I25.10 Atherosclerotic heart disease of native coronary artery without angina pectoris; I25.2 Old myocardial infarction; M19.90 Unspecified osteoarthritis, unspecified site; K57.90 Diverticulosis of intestine, part unspecified, without perforation or abscess without bleeding; I71.4 Abdominal aortic aneurysm, without rupture; Z79.899 Other long term (current) drug therapy; Z88.8 Allergy status to other drugs, medicaments and biological substances; Z85.46 Personal history of malignant neoplasm of prostate; Z87.11 Personal history of peptic ulcer disease; Z87.891 Personal history of nicotine dependence; Z82.49 Family history of ischemic heart disease and other diseases of the circulatory system; W19.XXXA Unspecified fall, initial encounter; Y92.9 Unspecified place or not applicable
CPT/HCPCS: 36415; 74000; 74177; 80053; 81003; 82150; 83690; 85025; 85610; 85730; 96361; 96374; 99285

== ENCOUNTER → 2017-04-21 | Outpatient (CLI) | payer MEDICARE, BC ==
[2017-04-21 07:38] LABS: Anisocytosis Moderate; Basophils % (A) 1 %; CH 28.9; Eosinophils # (A) 0.1 k/uL (0-0.7); Eosinophils % (A) 3 %; HCT 35.8 % (39.0-53.0); HDW 2.75; HGB 11.3 gm/dL (13.0-17.5); Hypochromasia Slight; Luc # (Auto) 0.18; Luc % (Auto) 4; Lymphocytes % (A) 22 %; MCH 28.6 pg (25.0-35.0); MCHC 31.5 g/dL (31.0-37.0); MCV 90.6 fL (80.0-100.0); Macrocytosis Slight; Mean Platelet Volume 7.1; Monocytes # (A) 0.4 k/uL (0-1.0); Monocytes % (A) 8 %; Neutrophils # (A) 2.9 k/uL (1.3-7.7); Neutrophils % (A) 62 %; RBC 3.95 m/uL (4.30-5.90); RDW 22.5 % (11.5-15.5); WBC 4.7 k/uL (3.8-10.6)
[2017-04-21 08:01] LABS: ALT 23 U/L (21-72); AST 29 U/L (17-59); Alkaline Phosphatase 66 U/L (38-126); Anion Gap 9 mmol/L; Blood Urea Nitrogen 18 mg/dL (9-20); Calcium 9.9 mg/dL (8.4-10.2); Carbon Dioxide 28 mmol/L (22-30); Chloride 105 mmol/L (98-107); Cholesterol 147 mg/dL (<200); Glucose 87 mg/dL (74-99); HDL Cholesterol 33 mg/dL (40-60); Non-African American GFR(MDRD) 60 (>60 ml/min/1.73 sqM); Potassium 4.6 mmol/L (3.5-5.1); Sodium 142 mmol/L (137-145); Total Bilirubin 2.3 mg/dL (0.2-1.3); Total Protein 7.3 g/dL (6.3-8.2)
== END | disposition home or self-care (01) ==
LOC: LABWHC1 06:39
PROVIDERS: ATTEND Family Medicine
DX: E78.5 Hyperlipidemia, unspecified (principal)
CPT/HCPCS: 36415; 80053; 80061; 84439; 84443; 85025

== ENCOUNTER 2017-10-25 00:36 | Emergency (ER) | payer MEDICARE, BC ==
[2017-10-25 00:47] VITALS: TEMP 98.1
[2017-10-25] MEDS ORDERED: cloNIDine HCL 0.1 MG TAB PO STA (01:02)
[2017-10-25] MEDS ORDERED: methylPREDNISolone SOD SUCCI 125 MG/2 ML VIAL IM ONE (01:02)
[2017-10-25] MEDS ORDERED: IPRATROPIUM-ALBUTEROL 3 ML NEB INHALATION STA ×2 (01:02→01:57)
--- NOTE | 2017-10-25 01:09 | ED ---
General Adult HPI - General Chief complaint: Upper Respiratory Infection Stated complaint: cough Time Seen by Provider: 10/25/17 00:40 Source: patient, family, RN notes reviewed Mode of arrival: ambulatory Limitations: no limitations - History of Present Illness Initial comments: This is a 87-year-old male who presents emergency Department complaining of a cough with some sputum production over the last couple days. Patient states this evening he developed a wheeze and he is coming in because of a wheeze. Patient states she's having no chest pain or palpitations. Patient denies any fever or chills. Patient denies any abdominal pain patient denies nausea vomiting or diarrhea. Patient denies any leg swelling or calf pain. Patient denies any headache patient denies numbness weakness. Patient denies lightheadedness dizziness or near syncopal episode. Patient denies a history of smoking. - Related Data Home Medications Medication Instructions Recorded Confirmed Niacin [Niaspan] 1,000 mg PO HS 11/12/14 12/25/16 Simvastatin [Zocor] 40 mg PO HS 11/12/14 12/25/16 Enalapril [Vasotec] 10 mg PO BID 11/13/16 12/25/16 Previous Rx's Medication Instructions Recorded Pantoprazole Sodium [Protonix] 40 mg PO BID #60 tablet. 11/15/16 Docusate [Colace] 100 mg PO BID PRN #60 capsule 12/25/16 Polyethylene Glycol 3350 [Miralax] 17 gm PO DAILY PRN #15 packet 12/25/16 traMADol HCL [Ultram] 50 mg PO Q4HR PRN #30 tab 12/25/16 Albuterol Inhaler [Ventolin Hfa 1 - 2 puff INHALATION Q6HR PRN #2 10/25/17 Inhaler] puff Azithromycin [Zithromax Tri-Edmar] 500 mg PO DAILY #3 tab 10/25/17 predniSONE 40 mg PO DAILY #8 tab 10/25/17 Allergies Allergy/AdvReac Type Severity Reaction Status Date / Time isosorbide mononitrate Allergy Unknown Verified 10/25/17 00:47 [From Imdur] lisinopril Allergy Unknown Verified 10/25/17 00:47 rosuvastatin calcium Allergy Unknown Verified 10/25/17 00:47 [From Crestor] solifenacin succinate Allergy Unknown Verified 10/25/17 00:47 [From Ves[employer]] Review of Systems ROS Statement: Those systems with pertinent positive or pertinent negative responses have been documented in the HPI. ROS Other: All systems not noted in ROS Statement are negative. Past Medical History Past Medical History: Coronary Artery Disease (CAD), Cancer, GERD/Reflux, Hyperlipidemia, Hypertension, Myocardial Infarction ([place]), Osteoarthritis (OA), Prostate Disorder, Syncope Additional Past Medical History / Comment(s): Prostate cancer with prostatectomy and radiation-pt states PSA has increased lately, occasional back pain, sinus problems. Recent admission to [facility] 11/13/16 diagnosis of hematemesis- bleeding stomach ulcer, stomach cancer-pt to have surgery at [facility] in one week. Last Myocardial Infarction Date:: 1984 History of Any Multi-Drug Resistant Organisms: None Reported Past Surgical History: Cholecystectomy, Coronary Bypass/CABG, Heart Catheterization, Hernia Repair, Orthopedic Surgery, Prostate Surgery Additional Past Surgical History / Comment(s): 11/13/16 EGD with bx, CABG 3 vessel in 1984, R rotator cuff repair, bilateral cataract removal, inguinal hernia repairs x 2, hemorrhoidectomy. Past Anesthesia/Blood Transfusion Reactions: No Reported Reaction Past Psychological History: No Psychological Hx Reported Smoking Status: Former smoker Past Alcohol Use History: None Reported Past Drug Use History: None Reported - Past Family History Father Family Medical History: Myocardial Infarction ([place]) Additional Family Medical History / Comment(s): Father had a [place] at the age of 55 yrs. Mother Family Medical History: No Reported History Additional Family Medical History / Comment(s): Mother was healthy and lived into her 80's. General Exam - General Exam Comments Initial Comments: GENERAL: Patient is well-developed and well-nourished. Patient is nontoxic and well- hydrated and is in mild distress. ENT: Neck is soft and supple. No significant lymphadenopathy is noted. Oropharynx is clear. Moist mucous membranes. Neck has full range of motion without eliciting any pain. EYES: The sclera were anicteric and conjunctiva were pink and moist. Extraocular movements were intact and pupils were equal round and reactive to light. Eyelids were unremarkable. PULMONARY: Patient is having expiratory wheezing CARDIOVASCULAR: There is a regular rate and rhythm without any murmurs gallops or rubs. ABDOMEN: Soft and nontender with normal bowel sounds. No palpable organomegaly was noted. There is no palpable pulsatile mass. SKIN: Skin is clear with no lesions or rashes and otherwise unremarkable. NEUROLOGIC: Patient is alert and oriented x3. Cranial nerves II through XII are grossly intact. Motor and sensory are also intact. Normal speech, volume and content. Symmetrical smile. MUSCULOSKELETAL: Normal extremities with adequate strength and full range of motion. No lower extremity swelling or edema. No calf tenderness. LYMPHATICS: No significant lymphadenopathy is noted PSYCHIATRIC: Normal psychiatric evaluation. Limitations: no limitations Course Vital Signs 10/25/17 10/25/17 10/25/17 00:43 01:23 01:33 Temperature 98.1 F Pulse Rate 58 L 53 L 54 L Respiratory 16 16 16 Rate Blood Pressure 204/98 O2 Sat by Pulse 97 Oximetry 10/25/17 10/25/17 02:12 02:23 Temperature Pulse Rate 56 L 54 L Respiratory 16 16 Rate Blood Pressure O2 Sat by Pulse Oximetry Medical Decision Making - Medical Decision Making EKG shows sinus bradycardia at a rate of 55 bpm with an occasional PAC TN interval is 240 QRS is 1:30 QT interval is 470 QTC is 449. Patient's EKG shows no ST segment elevation or depression patient does have a right bundle branch block however. After the patient's first breathing treatment he was considerably better however still had a wheeze. I gave the patient a second treatment he felt much better and only had no wheezes occasionally. Patient was satting 90% on room air. Disposition Clinical Impression: Bronchitis with bronchospasm Disposition: HOME SELF-CARE Condition: Good Instructions: Acute Bronchitis (ED), Bronchospasm (ED) Prescriptions: Albuterol Inhaler [Ventolin Hfa Inhaler] 1 - 2 puff INHALATION Q6HR PRN #2 puff PRN Reason: Difficulty breathing Azithromycin [Zithromax Tri-Edmar] 500 mg PO DAILY #3 tab predniSONE 40 mg PO DAILY #8 tab Referrals: Blayne Chand MD [Primary Care Provider] - 1-2 days Time of Disposition: 02:40
--- NOTE | 2017-10-25 01:50 | XR ---
EXAMINATION TYPE: XR chest 2V DATE OF EXAM: 10/25/2017 COMPARISON: 11/13/2016 HISTORY: Difficulty breathing TECHNIQUE: Frontal and lateral views of the chest are obtained. FINDINGS: There is no heart failure nor confluent pneumonic infiltrate. Thoracic aorta is atheromato us. Costophrenic angles are clear. There are sternal wires. Bones are osteopenic. There is 30% wedgin g of T11 vertebra. IMPRESSION: Atheromatous aorta. No acute lung disease. No heart failure. New compression fracture of T11 compared to old exam.
[2017-10-25] MEDS ORDERED: cefTRIAXone 250 MG VIAL IM STA (01:57)
[2017-10-25] MEDS ORDERED: AZITHROMYCIN 500 MG TAB PO STA (01:58)
[2017-10-25] MEDS ORDERED: cefTRIAXone 1,000 MG VIAL (IM USE) IM STA (02:11)
[2017-10-25 03:09] VITALS: BP 155/81; PULSE 73; RESP 18
== END 2017-10-25 03:07 | disposition home or self-care (01) ==
LOC: EC 00:36
DX: J40 Bronchitis, not specified as acute or chronic (principal); I45.10 Unspecified right bundle-branch block; R00.1 Bradycardia, unspecified; E78.5 Hyperlipidemia, unspecified; I10 Essential (primary) hypertension; I25.10 Atherosclerotic heart disease of native coronary artery without angina pectoris; I25.2 Old myocardial infarction; Z87.891 Personal history of nicotine dependence; Z79.899 Other long term (current) drug therapy; Z88.8 Allergy status to other drugs, medicaments and biological substances; Z85.46 Personal history of malignant neoplasm of prostate; Z90.79 Acquired absence of other genital organ(s); Z92.3 Personal history of irradiation; Z53.8 Procedure and treatment not carried out for other reasons
CPT/HCPCS: 99283; 96372 ×2; 94640 ×2; 93005; 71046; J2930; J0696

== ENCOUNTER → 2017-11-04 | Outpatient (CLI) | payer MEDICARE, BC ==
--- NOTE | 2017-11-04 12:16 | CT ---
EXAMINATION TYPE: CT abdomen pelvis w con DATE OF EXAM: 11/04/2017 COMPARISON: 12/25/2016 and 11/13/2016, PET/CT 12/19/2016 HISTORY: 87-year-old male follow-up Gastric and Prostate CA, suspect metastatic disease. Last chemoth erapy July 2017. TECHNIQUE: Contiguous axial scanning of the abdomen and pelvis following administration of 100 ml Omn ipaque 300 IV contrast. Delayed images through the kidneys and coronal/sagittal reconstructions perf ormed. CT DLP: 1399 mGycm Automated exposure control for dose reduction was used. FINDINGS: Median sternotomy wires are present with post-CABG changes. Heart borderline to mildly enlarged witho ut pericardial effusion. Mild aneurysm descending thoracic aorta at 3.3 cm. Moderate atherosclerotic calcifications throughout the abdominal aorta and iliac arteries is stable 3.0 cm infrarenal abdominal aortic aneurysm, sagitt al image 36. Small hiatal hernia. No focal liver lesion. Cholecystectomy clips are present. Portal venous system is patent. Adrenal glands, spleen, and atrophic pancreas show no gross adenopathy. Very large left upper pole renal cyst redemonstrated measuring 13.1 cm. Lobulated cyst lower pole left kidney measures 3.7 cm, unchanged from 11/13/2016. There is some layeri ng density probably representing some calcification, similar to 11/13/2016. Interval Angel-en-Y gastric bypass. There is some nodular containing at the duodenal stump near the bro hepatis measuring 2.4 x 1.9 cm that appears less pronounced on the delayed kidney images but should be reassessed at follow-up. A 6 mm upper pericaval lymph node, axial image 23 is unchanged. Additional scattered nonenlarged mese nteric lymph nodes. Normal appendix. No dilated small bowel, free fluid, or free air. Diffuse colonic diverticulosis, most extensive in the sigmoid colon. There is a small left inguinal hernia containing a very small segment of the proximal sigmoid. No obs tructive changes. Surgical clips in the pelvis relating to prostatectomy. Additional surgical clips along the iliac edel ins from lymph node dissection. No abnormal fluid collection in the pelvis or pelvic lymphadenopathy. Bones: Mild degenerative changes of the hips. Superior endplate compression deformity of L2 is unchan ged. Mild anterior wedging of L1 is unchanged. Mild anterior wedging and mild vertebral height loss o f T10 slightly progressed from 2017. No paravertebral hematoma. Findings suggest a chronic compressio n injury but new from 12/25/2016. IMPRESSION: 1. INTERVAL ANGEL-EN-Y GASTRIC BYPASS. THE DUODENAL STUMP AT THE BRO HEPATIS HAS A SOMEWHAT THICKENE D NODULAR APPEARANCE PROBABLY POSTSURGICAL AND DUE TO MUCOSAL REDUNDANCY. SHORT INTERVAL FOLLOW-UP RE COMMENDED TO REASSESS THIS REGION. 2. OTHERWISE, NO EVIDENCE FOR METASTATIC DISEASE TO THE ABDOMEN OR PELVIS. 3. MILD VERTEBRAL COMPRESSION DEFORMITY OF T10 IS PROGRESSED FROM 12/25/2016 BUT STILL SUSPECTED CHRONI C. CLINICALLY CORRELATE. 4. INCIDENTAL FINDINGS INCLUDE POST PROSTATECTOMY AND LYMPH NODE DISSECTION CHANGES IN THE PELVIS, SM ALL HIATAL HERNIA, SMALL LEFT INGUINAL HERNIA, DIFFUSE COLONIC DIVERTICULOSIS, AND STABLE ANEURYSMAL AORTA WITH A 3.0 CM AAA.
== END | disposition home or self-care (01) ==
LOC: RADCTMAIN 09:43
PROVIDERS: ATTEND Internal Medicine Hematology & Oncology
DX: C16.2 Malignant neoplasm of body of stomach (principal); I71.4 Abdominal aortic aneurysm, without rupture; Z98.84 Bariatric surgery status
CPT/HCPCS: 82565; 84520; 74177; 36415; Q9967

== ENCOUNTER 2017-11-26 22:20 | Inpatient (IN) | payer MEDICARE, BC ==
[2017-11-26] MEDS ORDERED: RX INFO: IV CONTRAST WAS GIVEN 1 EACH MISC MISCELLANE PRN (22:56)
--- NOTE | 2017-11-26 23:07 | ED ---
Chest Pain HPI - General Chief Complaint: Recheck/Abnormal Lab/Rx Stated Complaint: Back pain Time Seen by Provider: 11/26/17 22:40 Source: patient Mode of arrival: ambulatory Limitations: no limitations - History of Present Illness Initial Comments: This patient is an 87-year-old man who presents to be evaluated for pain to the left posterior thorax, he indicates the ribs below his left scapula. The patient states that it probably came on around 7 tonight but got worse around 8. He states that it is an aching sensation. He has noted that it is a little worse if he takes deep breaths and is better if he takes shallow breaths. He has not noted other worsening or relieving factors. He did have an episode where he broke into a sweat around 8 PM. Denies any other associated symptoms. Patient declines pain medication at the initial history and physical. MD Complaint: chest pain Onset/Timin -: hour(s) Onset: during rest Pain Location: other Pain Radiation: none Severity: moderate Quality: aching Consistency: constant Improves With: other (Shallow breaths) Worsens With: inspiration Anginal Symptoms: diaphoresis Treatments Prior to Arrival: none - Related Data Home Medications Medication Instructions Recorded Confirmed Simvastatin [Zocor] 40 mg PO HS 11/12/14 11/26/17 Enalapril [Vasotec] 10 mg PO BID 11/13/16 11/26/17 Aspirin EC [Ecotrin Low Dose] 81 mg PO DAILY 11/26/17 11/26/17 Levothyroxine Sodium [Synthroid] 50 mcg PO DAILY 11/26/17 11/26/17 Metoprolol Tartrate [Lopressor] 100 mg PO Q12H 11/26/17 11/26/17 Previous Rx's Medication Instructions Recorded Pantoprazole Sodium [Protonix] 40 mg PO BID #60 tablet. 11/15/16 Allergies Allergy/AdvReac Type Severity Reaction Status Date / Time isosorbide mononitrate Allergy Unknown Verified 11/26/17 23:14 [From Imdur] lisinopril Allergy Unknown Verified 11/26/17 23:14 rosuvastatin calcium Allergy Unknown Verified 11/26/17 23:14 [From Crestor] solifenacin succinate Allergy Unknown Verified 11/26/17 23:14 [From Vesicare] Review of Systems ROS Statement: Those systems with pertinent positive or pertinent negative responses have been documented in the HPI. ROS Other: All systems not noted in ROS Statement are negative. Constitutional: Denies: fever, chills, weakness Respiratory: Denies: cough, dyspnea, hemoptysis Cardiovascular: Reports: as per HPI, chest pain. Denies: palpitations, dyspnea on exertion, orthopnea, edema, syncope Gastrointestinal: Denies: abdominal pain, nausea, vomiting Genitourinary: Denies: dysuria, hematuria Musculoskeletal: Reports: as per HPI, back pain Skin: Denies: rash Neurological: Denies: headache, weakness, numbness, paresthesias EKG Findings - EKG Comments: EKG Findings:: The patient's underlying rhythm appears to be sinus with a rate of approximately 60 beats Per minute. There are frequent reentrant beats resulting in bigeminy. 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 - EKG Results: EKG: interpreted by ERMD, sinus rhythm - Blocks, [place], Hypertrophy, ST Abn: AV and intraventricular conduction: 1 AV block, right bundle branch block (fixed /intermittent, complete/incomplete) QRS axis and voltage: left axis deviation (-30 to -90) Chamber hypertrophy or enlargement: left ventricular hypertrophy or enlargement (LVE) Past Medical History Past Medical History: Coronary Artery Disease (CAD), Cancer, GERD/Reflux, Hyperlipidemia, Hypertension, Myocardial Infarction (ND), Osteoarthritis (OA), Prostate Disorder, Syncope Additional Past Medical History / Comment(s): Prostate cancer with prostatectomy and radiation-pt states PSA has increased lately, occasional back pain, sinus problems. Recent admission to [facility] 11/13/16 diagnosis of hematemesis- bleeding stomach ulcer, stomach cancer-pt to have surgery at [facility] in one week. Last Myocardial Infarction Date:: 1984 History of Any Multi-Drug Resistant Organisms: None Reported Past Surgical History: Cholecystectomy, Coronary Bypass/CABG, Heart Catheterization, Hernia Repair, Orthopedic Surgery, Prostate Surgery Additional Past Surgical History / Comment(s): 11/13/16 EGD with bx, CABG 3 vessel in 1984, R rotator cuff repair, bilateral cataract removal, inguinal hernia repairs x 2, hemorrhoidectomy. Past Anesthesia/Blood Transfusion Reactions: No Reported Reaction Past Psychological History: No Psychological Hx Reported Smoking Status: Former smoker Past Alcohol Use History: None Reported Past Drug Use History: None Reported - Past Family History Father Family Medical History: Myocardial Infarction (ND) Additional Family Medical History / Comment(s): Father had a ND at the age of 55 yrs. Mother Family Medical History: No Reported History Additional Family Medical History / Comment(s): Mother was healthy and lived into her 80's. General Exam Limitations: no limitations General appearance: alert, in no apparent distress Head exam: Present: atraumatic, normocephalic Eye exam: Present: normal appearance. Absent: scleral icterus, conjunctival injection ENT exam: Present: normal oropharynx Neck exam: Present: normal inspection Respiratory exam: Present: normal lung sounds bilaterally. Absent: respiratory distress, wheezes, rales, rhonchi, stridor, chest wall tenderness, accessory muscle use, decreased breath sounds, prolonged expiratory Cardiovascular Exam: Present: normal rhythm, bradycardia, normal heart sounds. Absent: systolic murmur, diastolic murmur, rubs, gallop GI/Abdominal exam: Present: soft. Absent: distended, tenderness, guarding, rebound Extremities exam: Present: normal inspection, normal capillary refill. Absent: pedal edema, calf tenderness Back exam: Present: normal inspection. Absent: CVA tenderness (R), CVA tenderness (L) Neurological exam: Present: alert Skin exam: Present: warm, dry, intact, normal color. Absent: rash Course Vital Signs 11/26/17 11/26/17 11/27/17 22:27 23:44 01:44 Temperature 96.7 F L 97.1 F L Pulse Rate 64 79 56 L Respiratory 18 20 18 Rate Blood Pressure 230/101 166/93 171/82 O2 Sat by Pulse 96 96 95 Oximetry Chest Pain MDM - MDM This patient is an 87-year-old man presenting with left-sided, posterior thoracic pain. His workup here is negative, however given the associated diaphoresis will admit the patient to telemetry overnight to rule out acute coronary syndrome. Disposition Clinical Impression: Chest pain Narrative: Rule out ACS Disposition: ADMITTED IP TO THIS HOSP Condition: Fair
[2017-11-26 23:12] LABS: Basophils % (A) 1 %; Eosinophils # (A) 0.2 k/uL (0-0.7); Eosinophils % (A) 2 %; HCT 38.1 % (39.0-53.0); HGB 12.8 gm/dL (13.0-17.5); Lymphocytes # (A) 1.4 k/uL (1.0-4.8); Lymphocytes % (A) 22 %; MCH 28.3 pg (25.0-35.0); MCHC 33.6 g/dL (31.0-37.0); MCV 84.2 fL (80.0-100.0); Mean Platelet Volume 7.5; Monocytes # (A) 0.6 k/uL (0-1.0); Monocytes % (A) 9 %; Neutrophils # (A) 4.2 k/uL (1.3-7.7); Neutrophils % (A) 64 %; Platelet Count 191 k/uL (150-450); RBC 4.53 m/uL (4.30-5.90); RDW 14.8 % (11.5-15.5); WBC 6.6 k/uL (3.8-10.6)
[2017-11-26 23:26] LABS: Calcium 9.8 mg/dL (8.4-10.2); Magnesium 1.7 mg/dL (1.6-2.3); Potassium 3.9 mmol/L (3.5-5.1); Total Bilirubin 1.2 mg/dL (0.2-1.3); Total Protein 7.1 g/dL (6.3-8.2)
--- NOTE | 2017-11-27 00:21 | CT ---
EXAMINATION TYPE: CT chest angio for PE DATE OF EXAM: 11/27/2017 COMPARISON: 08/21/2011 HISTORY: Chest pain CT DLP: DLP: 378.70 mGycm Automated exposure control for dose reduction was used. CONTRAST: CT Chest for pulmonary embolism performed with with IV Contrast, patient injected with 90 mL of Isovu e 370. FINDINGS: There are 3-D post processed images. There is some coarsening of interstitial pulmonary markings at the lung bases consistent with mild fi brosis. There is no evidence of a pulmonary mass. Heart is enlarged. There is no pericardial effusion . There is no pleural effusion. I see no filling defects in the pulmonary arteries. There is no evidence of pulmonary embolism. There is no mediastinal adenopathy. Thoracic aorta is atheromatous. There is no sign of aneurysm or dissec tion. There is some anterior wedging of L1 and L2 T10 vertebra with up to 40% loss of height. There is aneu rysm of the ascending aorta that measures 4.3 cm. There is a 12 cm cortical cyst on the upper pole ri ght kidney. There are multiple diverticula in the hepatic flexure of the colon. There are diverticula also in the transverse colon and splenic flexure. There is a 1 cm rounded high density area in the p osterior left kidney that is probably a cyst that contains calcium. IMPRESSION: Cardiomegaly. No evidence of pulmonary embolism. Mild pulmonary fibrotic changes. Stable right renal cortical cyst. 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 Colonic diverticulosis. There is a new T10 compression fracture compared to old exam. Compression fra ctures are stable compared to recent CT scan of the abdomen of 11/04/2017.
[2017-11-27] MEDS ORDERED: NITROGLYCERIN SL TABS 0.4 MG TAB SUBLINGUAL PRN (01:14)
[2017-11-27] MEDS ORDERED: ALBUTEROL NEBULIZED 2.5 MG/3 ML INHALATION PRN (01:49)
[2017-11-27] MEDS ORDERED: METOPROLOL TARTRATE 50 MG TAB PO SCH (02:00)
[2017-11-27] MEDS: LEVOTHYROXINE 50 MCG TAB PO SCH (05:27)
[2017-11-27] MEDS: PANTOPRAZOLE 40 MG TABLET PO SCH ×2 (05:27→17:28)
[2017-11-27 06:25] LABS: Creatine Kinase MB 0.6 ng/mL (0.0-2.4); Troponin I 0.013 ng/mL (0.000-0.034)
[2017-11-27] MEDS ORDERED: NON-FORMULARY DRUG (Aspirin Ec 81 MG) PO SCH (09:00)
[2017-11-27] MEDS ORDERED: NON-FORMULARY DRUG (Enalapril 10 MG) PO SCH (09:00)
--- NOTE | 2017-11-27 10:13 | P.CRDCN ---
History of Present Illness Consult date: 11/27/17 Chief complaint: Upper back pain History of present illness: This is a pleasant 87-year-old gentleman with a past medical history significant for coronary artery disease and status post coronary artery bypass grafting 32 years ago with unknown details at this point presented to the hospital complaining of discomfort in the upper back. No chest pain. No shortness of breath. No dizziness or lightheadedness and no syncope. 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 Beside that monitoring the rhythm overnight did reveal multiple episodes of nonconducted PACs. No sinus pauses noted. Please note that the patient was receiving metoprolol at 100 mg by mouth twice a day. The cardiac enzymes were checked and came in to be unremarkable. I am going to DC the metoprolol. I would increase the dose of lisinopril. I will obtain an echocardiogram was Doppler. I would also check the TSH. I recommended keeping the patient for additional 24 hours and transferring the patient to [facility]. Past Medical History Past Medical History: Coronary Artery Disease (CAD), Cancer, GERD/Reflux, Hyperlipidemia, Hypertension, Myocardial Infarction (PR), Osteoarthritis (OA), Prostate Disorder, Syncope Additional Past Medical History / Comment(s): Prostate cancer with prostatectomy and radiation, occasional back pain, sinus problems. admission to [facility] 11/13/16 diagnosis of hematemesis-bleeding stomach ulcer, stomach cancer. Last Myocardial Infarction Date:: 1984 History of Any Multi-Drug Resistant Organisms: None Reported Past Surgical History: Cholecystectomy, Coronary Bypass/CABG, Heart Catheterization, Hernia Repair, Orthopedic Surgery, Prostate Surgery Additional Past Surgical History / Comment(s): 11/13/16 EGD with bx, CABG 3 vessel in 1984, R rotator cuff repair, bilateral cataract removal, inguinal hernia repairs x 2, hemorrhoidectomy. prostate removal for cancer, stomach surgery 01/2017 for cancer with radiation Past Anesthesia/Blood Transfusion Reactions: No Reported Reaction Past Psychological History: No Psychological Hx Reported Additional Psychological History / Comment(s): Pt resides with his spouse. He is independent. He walks 2 miles daily on his treadmill. He lived in [place] and moved to the [facility] in 1957. He reads in French but writes better in [place]an. Smoking Status: Former smoker Past Alcohol Use History: None Reported Additional Past Alcohol Use History / Comment(s): smoked briefly quit 1963 Past Drug Use History: None Reported - Past Family History Father Family Medical History: Myocardial Infarction (PR) Additional Family Medical History / Comment(s): Father had a PR at the age of 55 yrs. Mother Family Medical History: No Reported History Additional Family Medical History / Comment(s): Mother was healthy and lived into her 80's. Medications and Allergies Home Medications Medication Instructions Recorded Confirmed Type Simvastatin [Zocor] 40 mg PO HS 11/12/14 11/26/17 History Enalapril [Vasotec] 10 mg PO BID 11/13/16 11/26/17 History Pantoprazole Sodium [Protonix] 40 mg PO BID #60 tablet.dr 11/15/16 11/26/17 Rx Aspirin EC [Ecotrin Low Dose] 81 mg PO DAILY 11/26/17 11/26/17 History Levothyroxine Sodium [Synthroid] 50 mcg PO DAILY 11/26/17 11/26/17 History Metoprolol Tartrate [Lopressor] 100 mg PO Q12H 11/26/17 11/26/17 History Allergies Allergy/AdvReac Type Severity Reaction Status Date / Time isosorbide mononitrate Allergy Unknown Verified 11/26/17 23:14 [From Imdur] lisinopril Allergy Unknown Verified 11/26/17 23:14 rosuvastatin calcium Allergy Unknown Verified 11/26/17 23:14 [From Crestor] solifenacin succinate Allergy Unknown Verified 11/26/17 23:14 [From Vesicare] Physical Exam Vitals: Vital Signs Temp Pulse Pulse Resp BP BP Pulse Ox 11/27/17 08:00 97.4 F L 57 L 16 158/90 92 L 11/27/17 03:22 43 L 18 11/27/17 03:19 97.7 F 65 18 198/90 97 11/27/17 01:44 97.1 F L 56 L 18 171/82 95 11/26/17 23:44 79 20 166/93 96 11/26/17 22:27 96.7 F L 64 18 230/101 96 Intake and Output 11/26/17 11/27/17 11/27/17 22:59 06:59 14:59 Intake Total 30 Balance 30 Intake: Amount of Fluid Infused ( 30 ml) Other: Voiding Method Toilet Weight 72.575 kg - Constitutional General appearance: no acute distress - Respiratory Respiratory: bilateral: CTA - Cardiovascular Rhythm: regular Heart sounds: normal: S1, S2 Results 11/26/17 23:04 11/26/17 23:04 Cardiac Enzymes 11/26/17 11/26/17 11/27/17 Range/Units 23:04 23:04 05:19 AST 25 (17-59) U/L CK-MB (CK-2) 0.6 (0.0-2.4) ng/mL Troponin I <0.012 0.013 (0.000-0.034) ng/mL CBC 11/26/17 Range/Units 23:04 WBC 6.6 (3.8-10.6) k/uL RBC 4.53 (4.30-5.90) m/uL Hgb 12.8 L (13.0-17.5) gm/dL Hct 38.1 L (39.0-53.0) % Plt Count 191 (150-450) k/uL Comprehensive Metabolic Panel 11/26/17 Range/Units 23:04 Sodium 145 (137-145) mmol/L Potassium 3.9 (3.5-5.1) mmol/L Chloride 108 H (98-107) mmol/L Carbon Dioxide 21 L (22-30) mmol/L BUN 22 H (9-20) mg/dL Creatinine 1.10 (0.66-1.25) mg/dL Glucose 96 (74-99) mg/dL Calcium 9.8 (8.4-10.2) mg/dL AST 25 (17-59) U/L ALT 24 (21-72) U/L Alkaline Phosphatase 66 (38-126) U/L Total Protein 7.1 (6.3-8.2) g/dL Albumin 4.0 (3.5-5.0) g/dL Current Medications Generic Name Dose Route Start Last Admin Trade Name Freq PRN Reason Stop Dose Admin Albuterol Sulfate 2.5 mg 11/27/17 01:49 Ventolin Nebulized INHALATION RT-Q6H PRN Difficulty breathing Aspirin 325 mg 11/28/17 09:00 Aspirin PO DAILY [facility] Atorvastatin Calcium 20 mg 11/27/17 21:00 Lipitor PO HS [facility] Levothyroxine Sodium 50 mcg 11/27/17 06:30 11/27/17 05:27 Synthroid PO 50 mcg 0630 VICENTE Administration Lisinopril 20 mg 11/28/17 09:00 Zestril PO DAILY VICENTE Miscellaneous Information 1 each 11/26/17 22:56 Rx Info: Iv Contrast Was Given MISCELLANE 11/28/17 22:56 DAILY PRN Per Protocol Nitroglycerin 0.4 mg 11/27/17 01:14 Nitrostat SUBLINGUAL Q5M PRN Chest Pain Non-Formulary Medication 10 mg 11/27/17 09:00 Enalapril PO BID VICENTE Pantoprazole Sodium 40 mg 11/27/17 07:30 11/27/17 05:27 Protonix PO 40 mg AC-BID VICENTE Administration Intake and Output 11/26/17 11/27/17 11/27/17 22:59 06:59 14:59 Intake Total 30 Balance 30 Intake: Amount of Fluid Infused ( 30 ml) Other: Voiding Method Toilet Weight 72.575 kg 11/26/17 23:04 11/26/17 23:04 Assessment and Plan Assessment: Assessment #1 upper back pain. #2 symptomatic sinus bradycardia #3 trifascicular block #4 CAD and status post CABG #5 multiple comorbidities. Plan #1 DC the metoprolol and increase the dose of lisinopril #2 obtain an echocardiogram was Doppler #3 obtain TSH #4 monitor the patient for additional 24 hours. Thank you for allowing us participate in his care
[2017-11-27] MEDS ORDERED: LISINOPRIL 20 MG TAB PO STA (11:17)
[2017-11-27 11:40] LABS: Creatine Kinase 65 U/L (55-170)
[2017-11-27 11:51] LABS: Troponin I <0.012 ng/mL (0.000-0.034)
--- NOTE | 2017-11-27 12:54 | ECHOF ---
Referral Reason:bradycardia MEASUREMENTS -------- HEIGHT: 170.2 cm WEIGHT: 72.6 kg BP: 158/90 IVSd: 1.2 cm (0.6 - 1.1) LVIDd: 4.6 cm (3.9 - 5.3) LVPWd: 1.1 cm (0.6 - 1.1) IVSs: 1.6 cm LVIDs: 2.2 cm LVPWs: 1.8 cm LAESV Index (A-L): 41.15 ml/m Ao Diam: 3.0 cm (2.0 - 3.7) AV Cusp: 1.8 cm (1.5 - 2.6) LA Diam: 6.3 cm (2.7 - 3.8) MV EXCURSION: 26.551 mm (> 18.000) MV EF SLOPE: 88 mm/s (70 - 150) EPSS: 0.8 cm MV E Hong: 0.86 m/s MV DecT: 143 ms MV A Hong: 0.92 m/s MV E/A Ratio: 0.93 AV maxP.30 mmHg AV meanP.39 mmHg AR PHT: 306 ms RAP: 5.00 mmHg RVSP: 24.74 mmHg FINDINGS -------- Sinus rhythm with extra systolic beats. This was a technically difficult study with suboptimal views. The left ventricular size is normal. There is mild concentric left ventricular hypertrophy. Overa ll left ventricular systolic function is mild-moderately impaired with, an EF between 40 - 45 %. Ba latesha inferoseptal LV wall motion is hypokinetic. Mid inferoseptal LV wall motion is hypokinetic. Inferior Hypokinesis The right ventricle is normal in size and function. LA is severely dilated >40 ml/m2 The right atrium is normal in size. Lumason used Aortic valve is trileaflet and is mildly thickened. Trace amount of aortic regurgitation. There is mild aortic stenosis present. Peak/mean gradient across the Aortic Valve is 26.30mmHg / 11.39mmH g. The mitral valve leaflets are mildly thickened. Mild mitral regurgitation is present. Mild tricuspid regurgitation present. The right ventricular systolic pressure, as measured by Doppl er, is 24.74mmHg. Trace/mild (physiologic) pulmonic regurgitation. The aortic root size is normal. Normal inferior vena cava with normal inspiratory collapse consistent with estimated right atrial pre ssure of 5 mmHg. The pericardium is normal. CONCLUSIONS -------- 1. Sinus rhythm with extra systolic beats. 2. This was a technically difficult study with suboptimal views. 3. The left ventricular size is normal. 4. There is mild concentric left ventricular hypertrophy. 5. Overall left ventricular systolic function is mild-moderately impaired with, an EF between 40 - 45 %. 6. Basal inferoseptal LV wall motion is hypokinetic. 7. Mid inferoseptal LV wall motion is hypokinetic. 8. Inferior Hypokinesis 9. The right ventricle is normal in size and function. 10. LA is severely dilated >40 ml/m2 11. The right atrium is normal in size. 12. Lumason used 13. Aortic valve is trileaflet and is mildly thickened. 14. Trace amount of aortic regurgitation. 15. There is mild aortic stenosis present. 16. Peak/mean gradient across the Aortic Valve is 26.30mmHg / 11.39mmHg. 17. The mitral valve leaflets are mildly thickened. 18. Mild mitral regurgitation is present. 19. Mild tricuspid regurgitation present. 20. The right ventricular systolic pressure, as measured by Doppler, is 24.74mmHg. 21. Trace/mild (physiologic) pulmonic regurgitation. 22. The aortic root size is normal. 23. Normal inferior vena cava with normal inspiratory collapse consistent with estimated right atrial pressure of 5 mmHg. 24. The pericardium is normal. STEEL ESTIMATOR: Jenifer Hopper [facility]
--- NOTE | 2017-11-27 13:40 | P.HPIM ---
History of Present Illness H&P Date: 11/27/17 Chief Complaint: upper back pain this is an 87-year-old male patient with past medical history of coronary artery disease and status post coronary artery bypass grafting who presents to the ED with a complaint of discomfort in the upper back patient denied any chest pain shortness of breath or lightheadedness associated with it. patient relates that it started down last night and down got progressively worse within an hour. Patient admits to diaphoresis associated with it but no chest pain; patient claims that pain was getting progressively worse so he decided to come to ED Review of Systems Constitutional: Denies chills, Denies fever Eyes: denies blurred vision, denies decreased vision Ears: deny: decreased hearing Ears, nose, mouth and throat: Denies headache, Denies sinus pain, Denies voice changes Breasts: absent: as per HPI (deferred) Cardiovascular: Reports lightheadedness, Denies chest pain, Denies palpitations , Denies rapid heart beat, Denies shortness of breath Respiratory: Denies congestion, Denies cough Gastrointestinal: Reports change in bowel habits, Reports diarrhea, Reports hematemesis, Reports hematochezia, Reports nausea, Reports vomiting Genitourinary: Reports hematuria, Reports polyuria, Reports urinary frequency, Reports urinary retention Musculoskeletal: Denies frequent falls, Denies leg numbness/tingling, Denies myalgias, Denies redness of joints Musculoskeletal: absent: ankle pain, ankle stiffness Integumentary: Reports dryness, Denies color changes, Denies rash, Denies unusual bruising Neurological: Reports hearing difficulties, Denies change in speech, Denies motor disturbance, Denies paralysis, Denies seizures, Denies sensory deficit, Denies visual changes Psychiatric: Denies anxiety, Denies change in sleep habits, Denies depression Endocrine: Denies cold intolerance, Denies heat intolerance, Denies polydipsia, Denies polyuria, Denies thyroid mass Hematologic/Lymphatic: Denies easy bruising, Denies lymphadenopathy, Denies lymphedema Allergic/Immunologic: Denies allergic rhinitis, Denies persistent infections, Denies wheezing Past Medical History Past Medical History: Coronary Artery Disease (CAD), Cancer, GERD/Reflux, Hyperlipidemia, Hypertension, Myocardial Infarction (NV), Osteoarthritis (OA), Prostate Disorder, Syncope Additional Past Medical History / Comment(s): Prostate cancer with prostatectomy and radiation, occasional back pain, sinus problems. admission to [facility] 11/13/16 diagnosis of hematemesis-bleeding stomach ulcer, stomach cancer. Last Myocardial Infarction Date:: 1984 History of Any Multi-Drug Resistant Organisms: None Reported Past Surgical History: Cholecystectomy, Coronary Bypass/CABG, Heart Catheterization, Hernia Repair, Orthopedic Surgery, Prostate Surgery Additional Past Surgical History / Comment(s): 11/13/16 EGD with bx, CABG 3 vessel in 1984, R rotator cuff repair, bilateral cataract removal, inguinal hernia repairs x 2, hemorrhoidectomy. prostate removal for cancer, stomach surgery 01/2017 for cancer with radiation Past Anesthesia/Blood Transfusion Reactions: No Reported Reaction Past Psychological History: No Psychological Hx Reported Additional Psychological History / Comment(s): Pt resides with his spouse. He is independent. He walks 2 miles daily on his treadmill. He lived in [place] and moved to the [facility] in [address]. He reads in Slovak but writes better in Libyan. Smoking Status: Former smoker Past Alcohol Use History: None Reported Additional Past Alcohol Use History / Comment(s): smoked briefly quit 1962 Past Drug Use History: None Reported - Past Family History Father Family Medical History: Myocardial Infarction (NV) Additional Family Medical History / Comment(s): Father had a NV at the age of 55 yrs. Mother Family Medical History: No Reported History Additional Family Medical History / Comment(s): Mother was healthy and lived into her 80's. Medications and Allergies Home Medications Medication Instructions Recorded Confirmed Type Simvastatin [Zocor] 40 mg PO HS 11/12/14 11/26/17 History Enalapril [Vasotec] 10 mg PO BID 11/13/16 11/26/17 History Pantoprazole Sodium [Protonix] 40 mg PO BID #60 tablet. 11/15/16 11/26/17 Rx Aspirin EC [Ecotrin Low Dose] 81 mg PO DAILY 11/26/17 11/26/17 History Levothyroxine Sodium [Synthroid] 50 mcg PO DAILY 11/26/17 11/26/17 History Metoprolol Tartrate [Lopressor] 100 mg PO Q12H 11/26/17 11/26/17 History Allergies Allergy/AdvReac Type Severity Reaction Status Date / Time isosorbide mononitrate Allergy Unknown Verified 11/26/17 23:14 [From Imdur] lisinopril Allergy Unknown Verified 11/26/17 23:14 rosuvastatin calcium Allergy Unknown Verified 11/26/17 23:14 [From Crestor] solifenacin succinate Allergy Unknown Verified 11/26/17 23:14 [From Vesicare] Physical Exam Vitals: Vital Signs Temp Pulse Pulse Resp BP BP Pulse Ox 11/27/17 12:00 97.4 F L 53 L 18 131/74 97 11/27/17 08:00 97.4 F L 57 L 16 158/90 92 L 11/27/17 03:22 43 L 18 11/27/17 03:19 97.7 F 65 18 198/90 97 11/27/17 01:44 97.1 F L 56 L 18 171/82 95 11/26/17 23:44 79 20 166/93 96 11/26/17 22:27 96.7 F L 64 18 230/101 96 Intake and Output 11/26/17 11/27/17 11/27/17 22:59 06:59 14:59 Intake Total 30 222 Balance 30 222 Intake: Amount of Fluid Infused ( 30 ml) Oral 222 Other: Voiding Method Toilet Toilet Weight 72.575 kg - Constitutional General appearance: Present: average body habitus, cooperative, no acute distress - EENT Eyes: Present: anicteric sclerae, EOMI, PERRLA, normal appearance ENT: Present: hearing grossly normal, normal oropharynx Ears: bilateral: normal - Neck Neck: Present: normal ROM. Absent: lymphadenopathy, rigidity, thyromegaly Carotids: negative: bruit present Thyroid: bilateral: normal size, negative: enlarged, nodule - Respiratory Respiratory: bilateral: CTA, negative: rales, rhonchi, wheezing - Cardiovascular Rhythm: regular Heart sounds: normal: S1, S2 Abnormal Heart Sounds: Absent: systolic murmur, diastolic murmur - Gastrointestinal General gastrointestinal: Present: normal bowel sounds, soft. Absent: distended , organomegaly, tenderness - Genitourinary Genitourinary Comment(s): deferred - Integumentary Integumentary: Present: normal turgor. Absent: jaundiced, rash, ulcer - Neurologic Neurologic: Present: CNII-XII intact. Absent: focal deficits - Musculoskeletal Musculoskeletal: Present: gait normal, strength equal bilaterally - Psychiatric Psychiatric: Present: A&O x's 3, appropriate affect, intact judgment & insight Results CBC & Chem 7: 11/26/17 23:04 11/26/17 23:04 Labs: Abnormal Lab Results - Last 24 Hours (Table) 11/26/17 11/26/17 11/26/17 Range/Units 23:04 23:04 23:04 Hgb 12.8 L (13.0-17.5) gm/dL Hct 38.1 L (39.0-53.0) % D-Dimer 0.76 H (<0.60) mg/L FEU Chloride 108 H (98-107) mmol/L Carbon Dioxide 21 L (22-30) mmol/L BUN 22 H (9-20) mg/dL Total Creatine Kinase (55-170) U/L 11/27/17 Range/Units 05:19 Hgb (13.0-17.5) gm/dL Hct (39.0-53.0) % D-Dimer (<0.60) mg/L FEU Chloride (98-107) mmol/L Carbon Dioxide (22-30) mmol/L BUN (9-20) mg/dL Total Creatine Kinase 42 L (55-170) U/L Thrombosis Risk Factor Assmnt - Choose All That Apply Any of the Below Risk Factors Present?: No Other Risk Factors: Yes Each Risk Factor Represents 3 Points: Age 75 years or older Other congenital or acquired thrombophilia - If yes, enter type in comment: No Thrombosis Risk Factor Assessment Total Risk Factor Score: 3 Thrombosis Risk Factor Assessment Level: Moderate Risk Assessment and Plan Assessment: 1. Upper back pain/Chest pain rule out acute coronary syndrome - we will admit the patient to telemetry - Trend troponins and monitor EKG - Scheduled for 2-D echocardiogram with Doppler - Consult cardiology; we appreciated their expertise in the management of this patient 2. Uncontrolled hypertension - Patient's lisinopril dose has been increased; plan is to discontinue metoprolol secondary to bradycardia - Continue to monitor blood pressure closely and adjust medications accordingly 3. Symptomatic bradycardia - metoprolol has been discontinued - Monitor vital signs closely; cardiology following for further treatment recommendations - TSH is ordered and is pending 4. Trifascicular block - 2-D echo with Doppler has been ordered for left ventricular function - Further recommendations after results are available 5. Coronary artery disease status post CABG; as above 6. DVT/GI prophylaxis; subcu heparin CODE STATUS; full code Time with Patient: Greater than 30
[2017-11-27] MEDS: ATORVASTATIN 20 MG TAB PO SCH (20:23)
[2017-11-28] MEDS: LEVOTHYROXINE 50 MCG TAB PO SCH (06:21)
[2017-11-28] MEDS: PANTOPRAZOLE 40 MG TABLET PO SCH ×2 (06:21→17:40)
[2017-11-28 06:45] LABS: Calcium 9.5 mg/dL (8.4-10.2)
[2017-11-28 06:55] LABS: Basophils # (A) 0.1 k/uL (0-0.2); Basophils % (A) 1 %; Eosinophils # (A) 0.1 k/uL (0-0.7); Eosinophils % (A) 2 %; HGB 12.3 gm/dL (13.0-17.5); Lymphocytes # (A) 1.4 k/uL (1.0-4.8); Lymphocytes % (A) 21 %; MCH 28.1 pg (25.0-35.0); MCHC 33.2 g/dL (31.0-37.0); MCV 84.7 fL (80.0-100.0); Mean Platelet Volume 6.9; Monocytes # (A) 0.6 k/uL (0-1.0); Monocytes % (A) 9 %; Neutrophils # (A) 4.1 k/uL (1.3-7.7); Neutrophils % (A) 64 %; Platelet Count 184 k/uL (150-450); RBC 4.37 m/uL (4.30-5.90); RDW 14.8 % (11.5-15.5); WBC 6.4 k/uL (3.8-10.6)
[2017-11-28] MEDS ORDERED: LISINOPRIL 20 MG TAB PO SCH (09:00)
[2017-11-28] MEDS: ASPIRIN 325 MG TAB PO SCH (09:30)
--- NOTE | 2017-11-28 10:00 | P.PN ---
Subjective Progress Note Date: 11/28/17 Principal diagnosis: Bradycardia This is a pleasant 87-year-old gentleman with history of coronary artery disease and prior coronary artery bypass grafting as well as hypertension and dyslipidemia was admitted to the hospital with upper back pain. We get involved in the care of the patient because of cardiac arrhythmia. The EKG showed sinus rhythm with trifascicular block. He did have first-degree AV block, right bundle branch block, and left anterior fascicular block. Beside that he was bradycardic with a heart rate in the 40s. And also he did have nonconducted PACs. He was receiving metoprolol at 100 mg by mouth twice a day which I did stop yesterday. I'll follow-up with him today, he denies having any chest pain or discomfort or difficulty breathing or feeding of dizziness or lightheadedness. The heart rate has been in the 50s and he did not stop to the 40s. He continues to be in sinus rhythm with trifascicular block and continues to have nonconducted PACs. He did not have any evidence of any sinus pauses. The echocardiogram revealed impaired LV function with an ejection fraction around 45% with mild aortic stenosis. Objective - Vital Signs Vital signs: Vital Signs Temp 97 F L 11/28/17 08:15 Pulse 62 11/28/17 08:15 Resp 16 11/28/17 08:15 BP 154/86 11/28/17 08:15 Pulse Ox 96 11/28/17 08:15 Intake & Output 11/27/17 11/28/17 11/28/17 18:59 06:59 18:59 Intake Total 462 Output Total 600 Balance -138 Weight 70.9 kg Intake: Oral 462 Output: Urine 600 Other: Voiding Method Toilet Toilet Toilet # Voids 1 - Constitutional General appearance: Present: no acute distress - Respiratory Respiratory: bilateral: CTA - Cardiovascular Rhythm: regular Heart sounds: normal: S1, S2 Abnormal Heart Sounds: Present: systolic murmur - Labs CBC & Chem 7: 11/28/17 06:01 11/28/17 06:01 Labs: Abnormal Lab Results - Last 24 Hours (Table) 11/28/17 11/28/17 Range/Units 06:01 06:01 Hgb 12.3 L (13.0-17.5) gm/dL Hct 37.0 L (39.0-53.0) % BUN 22 H (9-20) mg/dL Creatinine 1.30 H (0.66-1.25) mg/dL Triglycerides 178 H (<150) mg/dL HDL Cholesterol 31 L (40-60) mg/dL Assessment and Plan Assessment: Assessment #1 upper back pain. #2 symptomatic sinus bradycardia #3 trifascicular block #4 CAD and status post CABG #5 multiple comorbidities. Plan #1 continue holding the metoprolol #2 continue the current dose of lisinopril #3 obtain TSH #4 monitor the patient for additional 24 hours #5 follow-up with the patient. Thank you for allowing us participate in his care
--- NOTE | 2017-11-28 16:00 | P.PN ---
Subjective Progress Note Date: 11/28/17 Principal diagnosis: Upper back pain/chest pain; ACS rule out Uncontrolled hypertension Symptomatic bradycardia This is a pleasant 87-year-old gentleman with a past medical history significant for coronary artery disease and status post coronary artery bypass grafting 32 years ago with unknown details at this point presented to the hospital complaining of discomfort in the upper back. No chest pain. No shortness of breath. No dizziness or lightheadedness and no syncope. 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 Beside that monitoring the rhythm overnight did reveal multiple episodes of nonconducted PACs. No sinus pauses noted. Please note that the patient was receiving metoprolol at 100 mg by mouth twice a day. The cardiac enzymes were checked and came in to be unremarkable. 11/28/2017 Patient seen and evaluated on selective care unit; continues today any chest pain or shortness of breath; back pain is improved Patient has been evaluated by cardiology and metoprolol has been discontinued; plan is to increase dose of lisinopril and monitor blood pressure closely; echocardiogram is ordered and is pending; TSH is ordered and is normal; creatinine has trended up slightly to 1.3; oral fluid intake is fair Objective - Vital Signs Vital signs: Vital Signs Temp 97 F L 11/28/17 08:15 Pulse 67 11/28/17 14:00 Resp 16 11/28/17 14:00 BP 126/75 11/28/17 14:00 Pulse Ox 95 11/28/17 14:00 Intake & Output 11/27/17 11/28/17 11/28/17 18:59 06:59 18:59 Intake Total 462 360 Output Total 600 Balance -138 360 Weight 70.9 kg Intake: Oral 462 360 Output: Urine 600 Other: Voiding Method Toilet Toilet Toilet # Voids 1 2 - Exam - Constitutional General appearance: Present: average body habitus, cooperative, no acute distress - EENT Eyes: Present: anicteric sclerae, EOMI, PERRLA, normal appearance ENT: Present: hearing grossly normal, normal oropharynx Ears: bilateral: normal - Neck Neck: Present: normal ROM. Absent: lymphadenopathy, rigidity, thyromegaly Carotids: negative: bruit present Thyroid: bilateral: normal size, negative: enlarged, nodule - Respiratory Respiratory: bilateral: CTA, negative: rales, rhonchi, wheezing - Cardiovascular Rhythm: regular Heart sounds: normal: S1, S2 Abnormal Heart Sounds: Absent: systolic murmur, diastolic murmur - Gastrointestinal General gastrointestinal: Present: normal bowel sounds, soft. Absent: distended , organomegaly, tenderness - Genitourinary Genitourinary Comment(s): deferred - Integumentary Integumentary: Present: normal turgor. Absent: jaundiced, rash, ulcer - Neurologic Neurologic: Present: CNII-XII intact. Absent: focal deficits - Musculoskeletal Musculoskeletal: Present: gait normal, strength equal bilaterally - Psychiatric Psychiatric: Present: A&O x's 3, appropriate affect, intact judgment & insight - Labs CBC & Chem 7: 11/28/17 06:01 11/28/17 06:01 Labs: Abnormal Lab Results - Last 24 Hours (Table) 11/28/17 11/28/17 Range/Units 06:01 06:01 Hgb 12.3 L (13.0-17.5) gm/dL Hct 37.0 L (39.0-53.0) % BUN 22 H (9-20) mg/dL Creatinine 1.30 H (0.66-1.25) mg/dL Triglycerides 178 H (<150) mg/dL HDL Cholesterol 31 L (40-60) mg/dL Assessment and Plan Assessment: 1. Upper back pain/Chest pain rule out acute coronary syndrome - Cardiac enzymes are unremarkable - Scheduled for 2-D echocardiogram with Doppler -Cardiology recommendations are noted and appreciated 2. Uncontrolled hypertension - Patient's lisinopril dose has been increased; metoprolol has been discontinued secondary to bradycardia - Continue to monitor blood pressure closely and adjust medications accordingly 3. Symptomatic bradycardia - metoprolol has been discontinued - Monitor vital signs closely; cardiology following for further treatment recommendations - TSH is ordered and is pending 4. Trifascicular block - 2-D echo with Doppler has been ordered for left ventricular function - Further recommendations after results are available 5. Coronary artery disease status post CABG; as above 6. DVT/GI prophylaxis; subcu heparin CODE STATUS; full code Time with Patient: Greater than 30
[2017-11-28] MEDS: ATORVASTATIN 20 MG TAB PO SCH (20:44)
[2017-11-29 02:05] VITALS: RESP 18
[2017-11-29] MEDS: LEVOTHYROXINE 50 MCG TAB PO SCH (06:33)
[2017-11-29] MEDS: PANTOPRAZOLE 40 MG TABLET PO SCH (06:33)
[2017-11-29 06:52] LABS: Potassium 4.1 mmol/L (3.5-5.1)
[2017-11-29] MEDS ORDERED: LISINOPRIL 10 MG TAB PO SCH (09:30)
--- NOTE | 2017-11-29 09:31 | P.PN ---
Subjective Progress Note Date: 11/29/17 Principal diagnosis: Bradycardia This is a pleasant 87-year-old gentleman with history of coronary artery disease and prior coronary artery bypass grafting as well as hypertension and dyslipidemia was admitted to the hospital with upper back pain. We get involved in the care of the patient because of cardiac arrhythmia. The EKG showed sinus rhythm with trifascicular block. He did have first-degree AV block, right bundle branch block, and left anterior fascicular block. Beside that he was bradycardic with a heart rate in the 40s. And also he did have nonconducted PACs. He was receiving metoprolol at 100 mg by mouth twice a day which I did stop yesterday. I'll follow-up with him today, he denies having any chest pain or discomfort or difficulty breathing or feeding of dizziness or lightheadedness. The heart rate has improved significantly. The blood pressure is a slightly elevated and I would increase the dose of lisinopril. The echocardiogram revealed mildly impaired LV function with an EF of 45% with mild aortic stenosis. Objective - Vital Signs Vital signs: Vital Signs Temp 97.0 F L 11/29/17 04:00 Pulse 84 11/29/17 04:00 Resp 18 11/29/17 04:00 BP 165/77 11/29/17 04:00 Pulse Ox 96 11/29/17 04:00 Intake & Output 11/28/17 11/29/17 11/29/17 18:59 06:59 18:59 Intake Total 360 10 Balance 360 10 Weight 71 kg Intake: IV 10 0.9 10 Oral 360 Other: Voiding Method Toilet Toilet # Voids 2 0 # Bowel Movements 0 - Constitutional General appearance: Present: no acute distress - Respiratory Respiratory: bilateral: CTA - Cardiovascular Rhythm: regular Heart sounds: normal: S1, S2 Abnormal Heart Sounds: Present: systolic murmur - Labs CBC & Chem 7: 11/28/17 06:01 11/29/17 05:51 Labs: Abnormal Lab Results - Last 24 Hours (Table) 11/29/17 Range/Units 05:51 BUN 22 H (9-20) mg/dL Assessment and Plan Assessment: Assessment #1 upper back pain. #2 symptomatic sinus bradycardia #3 trifascicular block #4 CAD and status post CABG #5 multiple comorbidities. Plan #1 continue holding the metoprolol #2 increase the dose of lisinopril #3 the TSH was checked and came in to be unremarkable #4 the patient can be discharged home Thank you for allowing us participate in his care
[2017-11-29] MEDS: ASPIRIN 325 MG TAB PO SCH (10:01)
[2017-11-29 12:19] VITALS: BP 124/89; PULSE 69; TEMP 96.9
--- NOTE | 2017-12-06 20:17 | P.DS ---
Providers Date of admission: 11/27/17 10:14 Expected date of discharge: 12/06/17 Attending physician: Laina Childress Consults: 11/27/17 01:50 Consult Physician Routine Consulting Provider: Thom Erazo Consult Reason/Comments: chest pain with diaphoresis Do you want consulting provider notified?: Yes Primary care physician: Blayne Chand Pertinent Studies: Patient was evaluated by cardiology and found to have non-STEMI LA. Decision was made to medically treat patient patient was found to have new onset atrial fibrillation fibrillation will be started on Eliquis Assessment SVT asymptomatic None STEMI ejection fraction 45% Chronic kidney disease Hypertension Generalized weakness History of coronary disease with CABG Cardiomyopathy Hypertension Hyperlipidemia Plan Discharged home to follow-up with cardiology and family physician Dr. Blayne Chand Patient started on Eliquis Lipitor and Imdur and metoprolol Patient Condition at Discharge: Stable Plan - Discharge Summary Discharge Rx Participant: No New Discharge Prescriptions: Continue Simvastatin [Zocor] 40 mg PO HS Pantoprazole Sodium [Protonix] 40 mg PO BID #60 tablet. Levothyroxine Sodium [Synthroid] 50 mcg PO DAILY Aspirin EC [Ecotrin Low Dose] 81 mg PO DAILY Discontinued Enalapril [Vasotec] 10 mg PO BID Metoprolol Tartrate [Lopressor] 100 mg PO Q12H No Action Lisinopril [Zestril] 40 mg PO DAILY Apixaban [Eliquis] 2.5 mg PO BID #60 tablet Isosorbide Mononitrate ER [Imdur] 30 mg PO DAILY #30 tab.er.24h Metoprolol Succinate (ER) [Toprol XL] 25 mg PO DAILY #30 tab.er.24h Melatonin 5 mg PO HS PRN tablet PRN Reason: insomnia Discharge Medication List Simvastatin [Zocor] 40 mg PO HS 11/12/14 [History] Pantoprazole Sodium [Protonix] 40 mg PO BID #60 tablet. 11/15/16 [Rx] Aspirin EC [Ecotrin Low Dose] 81 mg PO DAILY 11/26/17 [History] Levothyroxine Sodium [Synthroid] 50 mcg PO DAILY 11/26/17 [History] Lisinopril [Zestril] 40 mg PO DAILY 12/02/17 [History] Apixaban [Eliquis] 2.5 mg PO BID #60 tablet 12/05/17 [Rx] Isosorbide Mononitrate ER [Imdur] 30 mg PO DAILY #30 tab.er.24h 12/05/17 [Rx] Metoprolol Succinate (ER) [Toprol XL] 25 mg PO DAILY #30 tab.er.24h 12/05/17 [Rx ] Melatonin 5 mg PO HS PRN tablet 12/06/17 [Rx] Follow up Appointment(s)/Referral(s): Blayne Chand MD [Primary Care Provider] - 12/07/17 1:30 pm Virgilio Sorensen MD [STAFF PHYSICIAN] - 12/08/17 4:30 pm Patient Instructions/Handouts: Acute Coronary Syndrome (DC), Hypertension (DC) Discharge Disposition: HOME SELF-CARE
--- NOTE | 2017-12-16 18:23 | CDI ---
Documentation Clarification Form Date: 12/16/2017 12:00:00 AM From: DANELLE Leyva; Abby Dalton Finishing Inspector Phone: If you have a question about this query, please contact Abby Dalton Finishing Inspector at [phone] between 8am and 5pm. Admit Date: 11/27/2017 10:14:00 AM Patient Name: Avila Pruett Visit Number: [id number] Discharge Date: 11/29/2017 ATTENTION: The Clinical Documentation Specialists (CDI) and [facility] Coding Staff appreciate your assistance in clarifying documentation. Please respond to the clarification below the line at the bottom and electronically sign. The CDI & [facility] Coding staff will review the response and follow-up if needed. Please note: Queries are made part of the Legal Health Record. If you have any questions, please contact the author of this message via ITS. Dr. Laina Childress The patient presented with symptomatic bradycardia, trifascicular block, supraventricular tachycardia, and new onset atrial fibrillation is documented on the discharge summary. Patient history/risk factors: Non-STEMI, CAD, CABG In your professional opinion, please clarify if the patients symptomatic bradycardia, new onset atrial fibrillation and asymptomatic SVT indicate a more specific diagnosis? Sick sinus syndrome Other, please specify Unable to determine Unable to determine MTDD
== END 2017-11-29 16:24 | disposition home or self-care (01) | DRG 281 ==
LOC: EC 22:20 → 3OBS 11-27 01:14 → OBSVTOIN 11-27 10:14 → 6SEL 11-27 11:22
PROVIDERS: ADMIT Hospitalist; ATTEND Hospitalist
DX: I21.4 Non-ST elevation (NSTEMI) myocardial infarction (principal); I47.1 Supraventricular tachycardia; N17.9 Acute kidney failure, unspecified; I42.9 Cardiomyopathy, unspecified; I45.3 Trifascicular block; I44.0 Atrioventricular block, first degree; I13.10 Hypertensive heart and chronic kidney disease without heart failure, with stage 1 through stage 4 chronic kidney disease, or unspecified chronic kidney disease; I35.0 Nonrheumatic aortic (valve) stenosis; E78.5 Hyperlipidemia, unspecified; I25.10 Atherosclerotic heart disease of native coronary artery without angina pectoris; I25.2 Old myocardial infarction; N18.9 Chronic kidney disease, unspecified; K21.9 Gastro-esophageal reflux disease without esophagitis; Z96.1 Presence of intraocular lens; Z79.899 Other long term (current) drug therapy; Z82.49 Family history of ischemic heart disease and other diseases of the circulatory system; Z85.028 Personal history of other malignant neoplasm of stomach; Z85.46 Personal history of malignant neoplasm of prostate; Z87.11 Personal history of peptic ulcer disease; Z87.891 Personal history of nicotine dependence; Z95.1 Presence of aortocoronary bypass graft; Z79.82 Long term (current) use of aspirin; Z79.890 Hormone replacement therapy; Z98.42 Cataract extraction status, left eye; Z98.41 Cataract extraction status, right eye; Z90.79 Acquired absence of other genital organ(s); Z92.3 Personal history of irradiation; Z88.8 Allergy status to other drugs, medicaments and biological substances
CPT/HCPCS: 36415; 71275; 80048; 80053; 80061; 82550; 82553; 83735; 84443; 84484; 85025; 85379; 93005; 93306; 99285

== ENCOUNTER 2017-12-02 20:03 | Inpatient (IN) | payer MEDICARE, BC ==
[2017-12-02] MEDS ORDERED: METOPROLOL TARTRATE 5 MG/5 ML VIAL IVP STA (20:35)
[2017-12-02 20:44] LABS: Basophils % (A) 0 %; Eosinophils # (A) 0.1 k/uL (0-0.7); Eosinophils % (A) 2 %; HCT 41.2 % (39.0-53.0); HGB 13.5 gm/dL (13.0-17.5); Lymphocytes # (A) 1.5 k/uL (1.0-4.8); Lymphocytes % (A) 22 %; MCH 27.8 pg (25.0-35.0); MCHC 32.8 g/dL (31.0-37.0); MCV 84.7 fL (80.0-100.0); Mean Platelet Volume 7.5; Monocytes # (A) 0.7 k/uL (0-1.0); Monocytes % (A) 11 %; Neutrophils # (A) 4.2 k/uL (1.3-7.7); Neutrophils % (A) 63 %; Platelet Count 181 k/uL (150-450); RBC 4.86 m/uL (4.30-5.90); RDW 15.1 % (11.5-15.5); WBC 6.7 k/uL (3.8-10.6)
[2017-12-02 20:52] LABS: Albumin 4.4 g/dL (3.5-5.0); Calcium 10.1 mg/dL (8.4-10.2); Magnesium 1.7 mg/dL (1.6-2.3); Partial Thromboplastin Time 22.8 sec (22.0-30.0); Potassium 4.2 mmol/L (3.5-5.1); Prothrombin Time 10.1 sec (9.0-12.0); Total Bilirubin 1.6 mg/dL (0.2-1.3); Total Protein 7.4 g/dL (6.3-8.2)
--- NOTE | 2017-12-02 21:07 | XR ---
EXAMINATION TYPE: XR chest 2V DATE OF EXAM: 12/02/2017 COMPARISON: NONE HISTORY: Chest pain TECHNIQUE: Frontal and lateral views of the chest are obtained. FINDINGS: There is no heart failure nor confluent pneumonic infiltrate. There is small linear densit y at the right lung base. Thoracic aorta is atheromatous. There are sternal wires. There are chest le ads. There is 30% wedging of T11 vertebra. There is osteopenia. IMPRESSION: Mild subsegmental atelectasis in the right lower lobe is new compared to last exam. No h eart failure.
[2017-12-02 21:16] LABS: Troponin I 0.064 ng/mL (0.000-0.034)
[2017-12-02] MEDS ORDERED: HEPARIN SODIUM,PORCINE 5,000 UNIT/ML 1 ML VIAL IV ONE (21:17)
[2017-12-02] MEDS ORDERED: HEPARIN SOD,PORK IN 0.45% NACL 25,000 UNIT in 0.45% NACL 1 500ML.BAG IV SCH (21:30)
--- NOTE | 2017-12-02 21:54 | ED ---
General Adult HPI - General Chief complaint: Recheck/Abnormal Lab/Rx Stated complaint: High BP Time Seen by Provider: 12/02/17 20:15 Source: patient, family Mode of arrival: ambulatory Limitations: no limitations - History of Present Illness Initial comments: This is an 87-year-old male with a history of hypertension who presents emergency department for high blood pressure and back pain. The patient states that he's been discharged from the hospital recently and had medication changes. He states he follow-up with Dr. Couch in the office because he had elevated blood pressure increased his lisinopril from 20 mg to 40 mg daily. He' s been taking this however has had persistent elevation in his blood pressure. He noted tonight that he had pain in his back between his shoulder blades he decided come emergency department. Denies any chest pain. No short of breath. No lightheadedness. No headache. No focal neurologic deficits. No other acute complaints. - Related Data Home Medications Medication Instructions Recorded Confirmed Simvastatin [Zocor] 40 mg PO HS 11/12/14 12/02/17 Aspirin EC [Ecotrin Low Dose] 81 mg PO DAILY 11/26/17 12/02/17 Levothyroxine Sodium [Synthroid] 50 mcg PO DAILY 11/26/17 12/02/17 Lisinopril [Zestril] 40 mg PO DAILY 12/02/17 12/02/17 Previous Rx's Medication Instructions Recorded Pantoprazole Sodium [Protonix] 40 mg PO BID #60 tablet. 11/15/16 Allergies Allergy/AdvReac Type Severity Reaction Status Date / Time isosorbide mononitrate Allergy Unknown Verified 12/02/17 20:17 [From Imdur] rosuvastatin calcium Allergy Unknown Verified 12/02/17 20:17 [From Crestor] solifenacin succinate Allergy Unknown Verified 12/02/17 20:17 [From Vesicare] Review of Systems ROS Statement: Those systems with pertinent positive or pertinent negative responses have been documented in the HPI. ROS Other: All systems not noted in ROS Statement are negative. Past Medical History Past Medical History: Coronary Artery Disease (CAD), Cancer, GERD/Reflux, Hyperlipidemia, Hypertension, Myocardial Infarction ([place]), Osteoarthritis (OA), Prostate Disorder, Syncope Additional Past Medical History / Comment(s): Prostate cancer with prostatectomy and radiation-pt states PSA has increased lately, occasional back pain, sinus problems. Recent admission to [facility] 11/13/16 diagnosis of hematemesis- bleeding stomach ulcer, stomach cancer-pt to have surgery at [facility] in one week. Last Myocardial Infarction Date:: 1984 History of Any Multi-Drug Resistant Organisms: None Reported Past Surgical History: Cholecystectomy, Coronary Bypass/CABG, Heart Catheterization, Hernia Repair, Orthopedic Surgery, Prostate Surgery Additional Past Surgical History / Comment(s): 11/13/16 EGD with bx, CABG 3 vessel in 1984, R rotator cuff repair, bilateral cataract removal, inguinal hernia repairs x 2, hemorrhoidectomy. Past Anesthesia/Blood Transfusion Reactions: No Reported Reaction Past Psychological History: No Psychological Hx Reported Smoking Status: Former smoker Past Alcohol Use History: None Reported Past Drug Use History: None Reported - Past Family History Father Family Medical History: Myocardial Infarction ([place]) Additional Family Medical History / Comment(s): Father had a [place] at the age of 55 yrs. Mother Family Medical History: No Reported History Additional Family Medical History / Comment(s): Mother was healthy and lived into her 80's. General Exam - General Exam Comments Initial Comments: Constitutional: Awake alert Appears comfortable Head: Normocephalic atraumatic Eyes: no conjunctival injection No scleral icterus EOMI Neck: No JVD Supple Heart: Tachycardia with irregular rhythm normal S1-S2 no murmurs Lungs: Clear to auscultation bilaterally No wheezing No rales Abdomen: Soft nondistended nontender Extremities: Non edematous DP pulses intact Radial pulses intact Neuro: A&Ox3 No focal neurologic deficits Psych: Appropriate mood and affect Limitations: no limitations Course Vital Signs 12/02/17 12/02/17 12/02/17 20:05 20:10 20:37 Temperature 97.8 F Pulse Rate 78 112 H Respiratory 18 19 16 Rate Blood Pressure 173/110 155/105 O2 Sat by Pulse 97 96 Oximetry 12/02/17 12/02/17 20:49 21:10 Temperature Pulse Rate 103 H 89 Respiratory 18 Rate Blood Pressure 158/103 124/82 O2 Sat by Pulse 96 96 Oximetry EKG Findings - EKG Comments: EKG Findings:: EKG showing it or fibrillation with a rate of 113. There is a right bundle-branch block. No abnormal ST segment changes or T-wave inversion. QTC is 513. QRS is 128. Other intervals normal. No ectopy. Medical Decision Making - Medical Decision Making This is a 7-year-old who came in for elevated blood pressure and back pain. He is found to have an elevated troponin and to be in new onset H of fibrillation. The patient was started on heparin. Is given 1 dose of Lopressor with improvement in his heart rate to the 80s. The patient states he feels improved. He is going to be admitted for further cardiac evaluation. Dr. Childress accepts admission. - Lab Data Result diagrams: 12/02/17 20:18 12/02/17 20:18 Lab Results 12/02/17 12/02/17 12/02/17 Range/Units 20:18 20:18 20:18 WBC 6.7 (3.8-10.6) k/uL RBC 4.86 (4.30-5.90) m/uL Hgb 13.5 (13.0-17.5) gm/dL Hct 41.2 (39.0-53.0) % MCV 84.7 (80.0-100.0) fL MCH 27.8 (25.0-35.0) pg MCHC 32.8 (31.0-37.0) g/dL RDW 15.1 (11.5-15.5) % Plt Count 181 (150-450) k/uL Neutrophils % 63 % Lymphocytes % 22 % Monocytes % 11 % Eosinophils % 2 % Basophils % 0 % Neutrophils # 4.2 (1.3-7.7) k/uL Lymphocytes # 1.5 (1.0-4.8) k/uL Monocytes # 0.7 (0-1.0) k/uL Eosinophils # 0.1 (0-0.7) k/uL Basophils # 0.0 (0-0.2) k/uL PT (9.0-12.0) sec INR (<1.2) APTT (22.0-30.0) sec Sodium 141 (137-145) mmol/L Potassium 4.2 (3.5-5.1) mmol/L Chloride 105 (98-107) mmol/L Carbon Dioxide 20 L (22-30) mmol/L Anion Gap 16 mmol/L BUN 25 H (9-20) mg/dL Creatinine 1.30 H (0.66-1.25) mg/dL Est GFR (CKD-EPI)AfAm 57 (>60 ml/min/1.73 sqM) Est GFR (CKD-EPI)NonAf 49 (>60 ml/min/1.73 sqM) Glucose 104 H (74-99) mg/dL Calcium 10.1 (8.4-10.2) mg/dL Magnesium 1.7 (1.6-2.3) mg/dL Total Bilirubin 1.6 H (0.2-1.3) mg/dL AST 26 (17-59) U/L ALT 21 (21-72) U/L Alkaline Phosphatase 81 (38-126) U/L CK-MB (CK-2) 2.0 (0.0-2.4) ng/mL Troponin I 0.064 H* (0.000-0.034) ng/mL Total Protein 7.4 (6.3-8.2) g/dL Albumin 4.4 (3.5-5.0) g/dL 12/02/17 Range/Units 20:18 WBC (3.8-10.6) k/uL RBC (4.30-5.90) m/uL Hgb (13.0-17.5) gm/dL Hct (39.0-53.0) % MCV (80.0-100.0) fL MCH (25.0-35.0) pg MCHC (31.0-37.0) g/dL RDW (11.5-15.5) % Plt Count (150-450) k/uL Neutrophils % % Lymphocytes % % Monocytes % % Eosinophils % % Basophils % % Neutrophils # (1.3-7.7) k/uL Lymphocytes # (1.0-4.8) k/uL Monocytes # (0-1.0) k/uL Eosinophils # (0-0.7) k/uL Basophils # (0-0.2) k/uL PT 10.1 (9.0-12.0) sec INR 1.0 (<1.2) APTT 22.8 (22.0-30.0) sec Sodium (137-145) mmol/L Potassium (3.5-5.1) mmol/L Chloride (98-107) mmol/L Carbon Dioxide (22-30) mmol/L Anion Gap mmol/L BUN (9-20) mg/dL Creatinine (0.66-1.25) mg/dL Est GFR (CKD-EPI)AfAm (>60 ml/min/1.73 sqM) Est GFR (CKD-EPI)NonAf (>60 ml/min/1.73 sqM) Glucose (74-99) mg/dL Calcium (8.4-10.2) mg/dL Magnesium (1.6-2.3) mg/dL Total Bilirubin (0.2-1.3) mg/dL AST (17-59) U/L ALT (21-72) U/L Alkaline Phosphatase (38-126) U/L CK-MB (CK-2) (0.0-2.4) ng/mL Troponin I (0.000-0.034) ng/mL Total Protein (6.3-8.2) g/dL Albumin (3.5-5.0) g/dL Disposition Clinical Impression: NSTEMI (non-ST elevated myocardial infarction), Atrial fibrillation Disposition: ADMITTED IP TO THIS HOSP Condition: Stable
[2017-12-02 23:22] VITALS: BMI 24.4
[2017-12-03] MEDS ORDERED: HEPARIN SODIUM,PORCINE 5,000 UNIT/ML 1 ML VIAL IV PRN (01:46)
[2017-12-03 03:35] LABS: Cholesterol 151 mg/dL (<200); HDL Cholesterol 34 mg/dL (40-60); LDL Cholesterol,Calculated 99 mg/dL (0-99); Triglycerides 89 mg/dL (<150)
[2017-12-03 03:59] LABS: Troponin I 0.062 ng/mL (0.000-0.034)
[2017-12-03] MEDS: LEVOTHYROXINE 50 MCG TAB PO SCH (06:07)
[2017-12-03] MEDS: PANTOPRAZOLE 40 MG TABLET PO SCH ×2 (06:07→16:41)
[2017-12-03] MEDS ORDERED: ASPIRIN 325 MG TAB PO SCH (09:00)
--- NOTE | 2017-12-03 09:13 | P.CRDCN ---
History of Present Illness Consult date: 12/03/17 Chief complaint: Upper back pain History of present illness: This is a pleasant 87-year-old gentleman who sees Dr. Sorensen in the office as an outpatient with a past medical history significant for CAD and status post CABG 32 years ago as well as hypertension and dyslipidemia presented to the hospital with upper back pain. The patient was seen in the hospital last week after he presented with upper back pain and was found to be bradycardic with a heart rate in the 50s with an EKG showing sinus rhythm with trifascicular block. At that point the atenolol which was one of the home medication was stopped and the patient was started on lisinopril and discharged home the following day in stable medical condition. Since discharge home he has been monitoring the blood pressure. He noticed that the blood pressure was elevated. He called Dr. Sorensen and the dose of lisinopril was increased to 20 mg by mouth twice a day. Yesterday he was at home and he had some lumbar back pain without any chest pain or discomfort or shortness of breath or dizziness or lightheadedness or syncope. His stated that he had some sweating with the upper back pain. He decided to come to the hospital where he was found to be in atrial fibrillation with controlled heart rate. This is a new diagnosis to the patient. Beside that the cardiac enzymes came in to be slightly abnormal. The blood pressure has been reasonably controlled in the hospital. He was started on heparin IV. During the last admission he underwent an echocardiogram and that revealed impaired LV function with an ejection fraction of 45% with evidence of mild aortic stenosis. The patient was ruled out for acute coronary syndrome. He is not experiencing any chest pain or chest discomfort and the upper back pain has improved. I had a long discussion with him and his in the room, I recommended at this point in view of the absence of any chest pain or discomfort proceeding with a conservative medical approach. The patient is on aspirin and a statin we will continue that. He is also on heparin IV. I would add Imdur to the current medical treatment. I am going to DC the heparin and start the patient on oral anticoagulation. We will continue following up with him. Past Medical History Past Medical History: Coronary Artery Disease (CAD), Cancer, GERD/Reflux, Hyperlipidemia, Hypertension, Myocardial Infarction ([place]), Osteoarthritis ([place]), Prostate Disorder, Syncope Additional Past Medical History / Comment(s): Prostate cancer with prostatectomy in 2002 and radiation, occasional back pain, sinus problems. Recent admission to [facility] 11/13/16 diagnosis of hematemesis-bleeding stomach ulcer , stomach cancer-removed part of the stomach in January 2017. Last Myocardial Infarction Date:: 1984 History of Any Multi-Drug Resistant Organisms: None Reported Past Surgical History: Cholecystectomy, Coronary Bypass/CABG, Heart Catheterization, Hernia Repair, Orthopedic Surgery, Prostate Surgery Additional Past Surgical History / Comment(s): 11/13/16 EGD with bx, CABG 3 vessel in 1984, R rotator cuff repair, bilateral cataract removal, inguinal hernia repairs x 2, hemorrhoidectomy. Past Anesthesia/Blood Transfusion Reactions: No Reported Reaction Past Psychological History: No Psychological Hx Reported Additional Psychological History / Comment(s): Pt resides with his spouse. He is independent. He walks 2 miles daily on his treadmill. He lived in [place] and moved to the [facility] in 1956. He reads in [place]ag[place] but writes better in [place]. Smoking Status: Former smoker Past Alcohol Use History: None Reported Additional Past Alcohol Use History / Comment(s): smoked briefly quit 1962 Past Drug Use History: None Reported - Past Family History Father Family Medical History: Myocardial Infarction ([place]) Additional Family Medical History / Comment(s): Father had a [place] at the age of 55 yrs. Mother Family Medical History: No Reported History Additional Family Medical History / Comment(s): Mother was healthy and lived into her 80's. Medications and Allergies Home Medications Medication Instructions Recorded Confirmed Type Simvastatin [Zocor] 40 mg PO HS 11/12/14 12/02/17 History Pantoprazole Sodium [Protonix] 40 mg PO BID #60 tablet. 11/15/16 12/02/17 Rx Aspirin EC [Ecotrin Low Dose] 81 mg PO DAILY 11/26/17 12/02/17 History Levothyroxine Sodium [Synthroid] 50 mcg PO DAILY 11/26/17 12/02/17 History Lisinopril [Zestril] 40 mg PO DAILY 12/02/17 12/02/17 History Allergies Allergy/AdvReac Type Severity Reaction Status Date / Time isosorbide mononitrate Allergy Unknown Verified 12/02/17 20:17 [From Imdur] rosuvastatin calcium Allergy Unknown Verified 12/02/17 20:17 [From Crestor] solifenacin succinate Allergy Unknown Verified 12/02/17 20:17 [From Vesicare] nitroglycerin AdvReac Unknown Verified 12/02/17 23:30 Physical Exam Vitals: Vital Signs Temp Pulse Pulse Resp BP BP Pulse Ox 12/03/17 03:20 97.0 F L 51 L 18 121/71 98 12/02/17 23:15 62 18 12/02/17 23:12 96.9 F L 62 18 139/92 100 12/02/17 22:08 92 19 150/92 96 12/02/17 21:10 89 124/82 96 12/02/17 20:49 103 H 18 158/103 96 12/02/17 20:37 16 12/02/17 20:10 112 H 19 155/105 96 12/02/17 20:05 97.8 F 78 18 173/110 97 Intake and Output 12/02/17 12/03/17 12/03/17 22:59 06:59 14:59 Intake Total 101.268 Output Total 200 250 Balance -200 -148.732 Intake: Intake, IV Titration 101.268 Amount Heparin Sod,Pork in 0.45% 101.268 NaCl 25,000 unit In 0.45 % NaCl 1 500ml.bag @ 12 UNITS/KG/HR 17.41 mls/hr IV .Q24H [facility] Rx#: [id number] Output: Urine 200 250 Other: Voiding Method Urinal Weight 72.575 kg 70.8 kg - Constitutional General appearance: no acute distress - Respiratory Respiratory: bilateral: diminished - Cardiovascular Rhythm: irregularly irregular Heart sounds: normal: S1, S2 Results 12/02/17 20:18 12/02/17 20:18 Cardiac Enzymes 12/02/17 12/02/17 12/03/17 Range/Units 20:18 20:18 02:59 AST 26 (17-59) U/L CK-MB (CK-2) 2.0 2.0 (0.0-2.4) ng/mL Troponin I 0.064 H* 0.062 H* (0.000-0.034) ng/mL Coagulation 12/02/17 12/03/17 Range/Units 20:18 02:59 PT 10.1 (9.0-12.0) sec APTT 22.8 51.5 H (22.0-30.0) sec Lipids 12/03/17 Range/Units 02:59 Triglycerides 89 (<150) mg/dL Cholesterol 151 (<200) mg/dL HDL Cholesterol 34 L (40-60) mg/dL CBC 12/02/17 Range/Units 20:18 WBC 6.7 (3.8-10.6) k/uL RBC 4.86 (4.30-5.90) m/uL Hgb 13.5 (13.0-17.5) gm/dL Hct 41.2 (39.0-53.0) % Plt Count 181 (150-450) k/uL Comprehensive Metabolic Panel 12/02/17 Range/Units 20:18 Sodium 141 (137-145) mmol/L Potassium 4.2 (3.5-5.1) mmol/L Chloride 105 (98-107) mmol/L Carbon Dioxide 20 L (22-30) mmol/L BUN 25 H (9-20) mg/dL Creatinine 1.30 H (0.66-1.25) mg/dL Glucose 104 H (74-99) mg/dL Calcium 10.1 (8.4-10.2) mg/dL AST 26 (17-59) U/L ALT 21 (21-72) U/L Alkaline Phosphatase 81 (38-126) U/L Total Protein 7.4 (6.3-8.2) g/dL Albumin 4.4 (3.5-5.0) g/dL Current Medications Generic Name Dose Route Start Last Admin Trade Name Freq PRN Reason Stop Dose Admin Aspirin 325 mg 12/03/17 09:00 Aspirin PO DAILY [facility] Atorvastatin Calcium 20 mg 12/03/17 21:00 Lipitor PO HS [facility] Heparin Sodium (Porcine) 0 unit 12/03/17 01:46 Heparin IV PER PROTOCOL PRN Low PTT Protocol Heparin Sodium/Sodium Chloride 500 mls @ 17.41 mls/hr 12/02/17 21:30 03:22 25,000 unit/ Sodium Chloride IV 12 units/kg/hr .Q24H [facility] 17.41 mls/hr Protocol Titration 12 UNITS/KG/HR Levothyroxine Sodium 50 mcg 12/03/17 06:30 12/03/17 06:07 Synthroid PO 50 mcg DAILY@0630 [facility] Administration Lisinopril 40 mg 12/03/17 09:00 Zestril PO DAILY [facility] Pantoprazole Sodium 40 mg 12/03/17 07:30 12/03/17 06:07 Protonix PO 40 mg AC-BID [facility] Administration Intake and Output 12/02/17 12/03/17 12/03/17 22:59 06:59 14:59 Intake Total 101.268 Output Total 200 250 Balance -200 -148.732 Intake: Intake, IV Titration 101.268 Amount Heparin Sod,Pork in 0.45% 101.268 NaCl 25,000 unit In 0.45 % NaCl 1 500ml.bag @ 12 UNITS/KG/HR 17.41 mls/hr IV .Q24H [facility] Rx#: [id number] Output: Urine 200 250 Other: Voiding Method Urinal Weight 72.575 kg 70.8 kg 12/02/17 20:18 12/02/17 20:18 Assessment and Plan Assessment: Assessment #1 acute non-ST elevation [place] #2 atrial fibrillation was controlled heart rate #3 cardiomyopathy with EF between 40-45% #4 hypertension #5 CAD and prior revascularization #6 dyslipidemia Plan #1 conservative medical approach for this 87-year-old gentleman with mildly increased troponin and no chest pain or chest discomfort #2 I am going to add Imdur to the current medical treatment. #3 continue the aspirin and statin #4 add oral anticoagulation and DC the heparin #5 follow-up with the patient. Thank you for allowing us participate in his care and we'll continue following up with him
[2017-12-03 09:45] LABS: Creatine Kinase MB 1.7 ng/mL (0.0-2.4)
[2017-12-03 09:48] LABS: Troponin I 0.056 ng/mL (0.000-0.034)
[2017-12-03] MEDS: LISINOPRIL 20 MG TAB PO SCH (10:36)
--- NOTE | 2017-12-03 10:55 | CDI ---
Last Revision, July 2017 Documentation Clarification Form Date: 12/03/2017 10:51:00 AM From: Delphine HortaWALTER, CCDS Admit Date: 12/02/2017 9:54:00 PM Patient Name: Avila Pruett Visit Number: [id number] Discharge Date: 12/06/2017 ATTENTION: The Clinical Documentation Specialists (CDI) and [facility] Coding Staff appreciate your assistance in clarifying documentation. Please respond to the clarification below the line at the bottom and electronically sign. The CDI & [facility] Coding staff will review the response and follow-up if needed. Please note: Queries are made part of the Legal Health Record. If you have any questions, please contact the author of this message via ITS. Dr. Ernesto Bunn: Atrial fibrillation is documented in the ED note and also the cardiology consult , documented as new to this patient. History/Risk Factors: CAD with previous CABG, Cardiomyopathy, Aortic stenosis, Prostate CA sp Prostatectomy and Radiation treatment. Clinical Indicators: Presented with upper back pain, sweating and elevated troponins. HR: 51-62 EKG/telemetry: Atrial fibrillation w/RVR w/PVC, RBBB, Left anterior fascicular block Treatment: IV Heparin, Add Imdur, continue Aspirain & Statin, add oral anticoagulation. In your professional opinion, can you please clarify the type of atrial fibrillation, if known? Chronic/Permanent Paroxysmal Persistent Other, please specify Unable to determine Please continue to document in your progress notes and discharge summary in order to capture severity of illness and risk of mortality. Include clinical findings that support your diagnosis. MTDD
--- NOTE | 2017-12-03 11:57 | P.HPIM ---
History of Present Illness H&P Date: 12/03/17 this is a pleasant 87 years old male with past medical history of CAD GERD, HLP , etch GN, syncope, bleeding gastric ulcer, stomach cancer status post surgical resection in 2016, status post CABG since 1983 Patient presents because of upper back pain CXR, mild atelectasis in the right lower lung, EKG atrial fibrillation's with RVR at 113 BPM with QTC of 513, LVH In the emergency room patient found to to have high troponin 0.06 and 0.05and new onset A. fib, proofsheet corrector evaluated the patient in the emergency room, patient was started on heparin drip, echo shows EF 45% Review of Systems 10 point systemic review is negative except as mentioned in HPI Past Medical History Past Medical History: Coronary Artery Disease (CAD), Cancer, GERD/Reflux, Hyperlipidemia, Hypertension, Myocardial Infarction (DE), Osteoarthritis (OA), Prostate Disorder, Syncope Additional Past Medical History / Comment(s): Prostate cancer with prostatectomy in 2002 and radiation, occasional back pain, sinus problems. Recent admission to [facility] 11/13/16 diagnosis of hematemesis-bleeding stomach ulcer , stomach cancer-removed part of the stomach in January 2017. Last Myocardial Infarction Date:: 1984 History of Any Multi-Drug Resistant Organisms: None Reported Past Surgical History: Cholecystectomy, Coronary Bypass/CABG, Heart Catheterization, Hernia Repair, Orthopedic Surgery, Prostate Surgery Additional Past Surgical History / Comment(s): 11/13/16 EGD with bx, CABG 3 vessel in 1984, R rotator cuff repair, bilateral cataract removal, inguinal hernia repairs x 2, hemorrhoidectomy. Past Anesthesia/Blood Transfusion Reactions: No Reported Reaction Past Psychological History: No Psychological Hx Reported Additional Psychological History / Comment(s): Pt resides with his spouse. He is independent. He walks 2 miles daily on his treadmill. He lived in [place] and moved to the [facility] in 7. He reads in Kazakh but writes better in Tanzanian. Smoking Status: Former smoker Past Alcohol Use History: None Reported Additional Past Alcohol Use History / Comment(s): smoked briefly quit 1962 Past Drug Use History: None Reported - Past Family History Father Family Medical History: Myocardial Infarction (DE) Additional Family Medical History / Comment(s): Father had a DE at the age of 55 yrs. Mother Family Medical History: No Reported History Additional Family Medical History / Comment(s): Mother was healthy and lived into her 80's. Medications and Allergies Home Medications Medication Instructions Recorded Confirmed Type Simvastatin [Zocor] 40 mg PO HS 11/12/14 12/02/17 History Pantoprazole Sodium [Protonix] 40 mg PO BID #60 tablet. 11/15/16 12/02/17 Rx Aspirin EC [Ecotrin Low Dose] 81 mg PO DAILY 11/26/17 12/02/17 History Levothyroxine Sodium [Synthroid] 50 mcg PO DAILY 11/26/17 12/02/17 History Lisinopril [Zestril] 40 mg PO DAILY 12/02/17 12/02/17 History Allergies Allergy/AdvReac Type Severity Reaction Status Date / Time isosorbide mononitrate Allergy Unknown Verified 12/02/17 20:17 [From Imdur] rosuvastatin calcium Allergy Unknown Verified 12/02/17 20:17 [From Crestor] solifenacin succinate Allergy Unknown Verified 12/02/17 20:17 [From Vesicare] nitroglycerin AdvReac Unknown Verified 12/02/17 23:30 Physical Exam Vitals: Vital Signs Temp Pulse Pulse Resp BP BP Pulse Ox 12/03/17 03:20 97.0 F L 51 L 18 121/71 98 12/02/17 23:15 62 18 12/02/17 23:12 96.9 F L 62 18 139/92 100 12/02/17 22:08 92 19 150/92 96 12/02/17 21:10 89 124/82 96 12/02/17 20:49 103 H 18 158/103 96 12/02/17 20:37 16 12/02/17 20:10 112 H 19 155/105 96 12/02/17 20:05 97.8 F 78 18 173/110 97 Intake and Output 12/02/17 12/03/17 12/03/17 22:59 06:59 14:59 Intake Total 101.268 Output Total 200 250 Balance -200 -148.732 Intake: Intake, IV Titration 101.268 Amount Heparin Sod,Pork in 0.45% 101.268 NaCl 25,000 unit In 0.45 % NaCl 1 500ml.bag @ 12 UNITS/KG/HR 17.41 mls/hr IV .Q24H [facility] Rx#: [id number] Output: Urine 200 250 Other: Voiding Method Urinal Weight 72.575 kg 70.8 kg Constitutional: No acute distress, conversant, pleasant Eyes: Anicteric sclerae, moist conjunctiva, no lid-lag PERRLA ENMT: NC/AT Oropharynx clear, no erythema, exudates Neck: Supple, FROM, no masses, or JVD No carotid bruits No thyromegaly Lungs: Clear to auscultation Clear to percussion Normal respiratory effort, no accessory muscle use Cardiovascular: Heart regular in rate and rhythm, No murmurs, gallops, or rubs No peripheral edema Abdominal: Soft Nontender, no guarding, rebound or rigidity Abdomen moving with respiration Normoactive bowel sounds No hepatomegaly, No splenomegaly No palpable mass No abdominal wall hernia noted Skin: Normal temperature, tone, texture, turgor No induration No subcutaneous nodules No rash, lesions No ulcers Extremities: No digital cyanosis No clubbing Pedal pulses intact and symmetrical Radial pulses intact and symmetrical Normal gait and station No calf tenderness Psychiatric: Alert and oriented to person, place and time Appropriate affect Intact judgement Neuro: Muscles Strength 5/5 in all 4 extremities Sensation to light touch grossly present throughout Cranial nerves II-XII grossly intact No focal sensory deficits Results CBC & Chem 7: 12/02/17 20:18 12/02/17 20:18 Labs: Abnormal Lab Results - Last 24 Hours (Table) 12/02/17 12/02/17 12/03/17 Range/Units 20:18 20:18 02:59 APTT (22.0-30.0) sec Carbon Dioxide 20 L (22-30) mmol/L BUN 25 H (9-20) mg/dL Creatinine 1.30 H (0.66-1.25) mg/dL Glucose 104 H (74-99) mg/dL Total Bilirubin 1.6 H (0.2-1.3) mg/dL Troponin I 0.064 H* 0.062 H* (0.000-0.034) ng/mL HDL Cholesterol (40-60) mg/dL 12/03/17 12/03/17 12/03/17 Range/Units 02:59 02:59 07:54 APTT 51.5 H (22.0-30.0) sec Carbon Dioxide (22-30) mmol/L BUN (9-20) mg/dL Creatinine (0.66-1.25) mg/dL Glucose (74-99) mg/dL Total Bilirubin (0.2-1.3) mg/dL Troponin I 0.056 H* (0.000-0.034) ng/mL HDL Cholesterol 34 L (40-60) mg/dL Thrombosis Risk Factor Assmnt - Choose All That Apply Any of the Below Risk Factors Present?: No Other Risk Factors: Yes Each Risk Factor Represents 3 Points: Age 75 years or older Other congenital or acquired thrombophilia - If yes, enter type in comment: No Thrombosis Risk Factor Assessment Total Risk Factor Score: 3 Thrombosis Risk Factor Assessment Level: Moderate Risk Assessment and Plan Plan: - NSTEMI, continue with aspirin and imdur s/p heparin drip, EF 45%, continue with conservative management, cardiology consultation is appreciated -New-onset A. fib, continue with anticoagulation on liquids -CKD stage III, patient is creatinine is 1.3 [baseline 1.03 -1.3] -htn, CONTINUE WITH LISINOPRIL 40 MG DAILY DVT prophylaxis patient is on anticoagulation
[2017-12-03] MEDS ORDERED: APIXABAN 2.5 MG TABLET PO STA (16:38)
[2017-12-03] MEDS: ATORVASTATIN 20 MG TAB PO SCH (21:46)
[2017-12-03] MEDS: APIXABAN 2.5 MG TABLET PO SCH (21:47)
[2017-12-04] MEDS: LEVOTHYROXINE 50 MCG TAB PO SCH (06:23)
[2017-12-04] MEDS: PANTOPRAZOLE 40 MG TABLET PO SCH ×2 (06:23→18:03)
[2017-12-04 06:35] LABS: Basophils % (A) 1 %; Eosinophils # (A) 0.2 k/uL (0-0.7); Eosinophils % (A) 3 %; HCT 39.8 % (39.0-53.0); HGB 13.2 gm/dL (13.0-17.5); Lymphocytes # (A) 1.1 k/uL (1.0-4.8); Lymphocytes % (A) 21 %; MCH 28.6 pg (25.0-35.0); MCHC 33.1 g/dL (31.0-37.0); MCV 86.3 fL (80.0-100.0); Monocytes # (A) 0.5 k/uL (0-1.0); Monocytes % (A) 10 %; Neutrophils # (A) 3.3 k/uL (1.3-7.7); Neutrophils % (A) 62 %; Platelet Count 182 k/uL (150-450); RBC 4.61 m/uL (4.30-5.90); RDW 14.8 % (11.5-15.5); WBC 5.4 k/uL (3.8-10.6)
[2017-12-04 06:45] LABS: Calcium 9.8 mg/dL (8.4-10.2); Potassium 4.2 mmol/L (3.5-5.1)
[2017-12-04] MEDS: LISINOPRIL 20 MG TAB PO SCH (08:48)
[2017-12-04] MEDS: APIXABAN 2.5 MG TABLET PO SCH ×2 (08:48→20:36)
[2017-12-04] MEDS: ISOSORBIDE MONONITRATE ER 30 MG TAB.ER.24H PO SCH (08:48)
[2017-12-04] MEDS ORDERED: ASPIRIN EC 81 MG TABLET.DR PO SCH (09:00)
[2017-12-04] MEDS: METOPROLOL SUCCINATE (ER) 25 MG TAB.ER.24H PO SCH (12:23)
--- NOTE | 2017-12-04 14:48 | P.PN ---
Subjective Progress Note Date: 12/04/17 This is a pleasant 87-year-old gentleman who sees Dr. Sorensen in the office as an outpatient with a past medical history significant for CAD and status post CABG 32 years ago as well as hypertension and dyslipidemia presented to the hospital with upper back pain. The patient was seen in the hospital last week after he presented with upper back pain and was found to be bradycardic with a heart rate in the 50s with an EKG showing sinus rhythm with trifascicular block. At that point the atenolol which was one of the home medication was stopped and the patient was started on lisinopril and discharged home the following day in stable medical condition. Since discharge home he has been monitoring the blood pressure. He noticed that the blood pressure was elevated. He called Dr. Sorensen and the dose of lisinopril was increased to 20 mg by mouth twice a day. Yesterday he was at home and he had some lumbar back pain without any chest pain or discomfort or shortness of breath or dizziness or lightheadedness or syncope. His stated that he had some sweating with the upper back pain. He decided to come to the hospital where he was found to be in atrial fibrillation with controlled heart rate. This is a new diagnosis to the patient. Beside that the cardiac enzymes came in to be slightly abnormal. The blood pressure has been reasonably controlled in the hospital. He was started on heparin IV. During the last admission he underwent an echocardiogram and that revealed impaired LV function with an ejection fraction of 45% with evidence of mild aortic stenosis. 12/05/2059 Patient was seen and examined this morning, up ambulating in the hallway without any difficulty. Hemodynamically stable. He states that through the night last night, he had an episode where he felt chilled, then became extremely diaphoretic. He has remained afebrile. We will add a small dose of beta [place] to his medication regime and continue the rest of his medications. Objective - Vital Signs Vital signs: Vital Signs Temp 97.2 F L 12/04/17 12:00 Pulse 59 L 12/04/17 12:00 Resp 18 12/04/17 12:00 BP 117/68 12/04/17 12:00 Pulse Ox 98 12/04/17 12:00 Intake & Output 12/03/17 12/04/17 12/04/17 18:59 06:59 18:59 Intake Total 180 240 354 Output Total 0 Balance 180 240 354 Weight 70 kg Intake: Oral 180 240 354 Output: Urine 0 Stool 0 Other: Voiding Method Urinal Urinal Urinal # Voids 1 0 # Bowel Movements 0 - Exam PHYSICAL EXAMINATION: HEENT: Head is atraumatic, normocephalic. Pupils equal, round. Neck is supple. There is no elevated jugular venous pressure. HEART EXAMINATION: Heart S1 and S2 irregularly irregular a systolic murmur is heard CHEST EXAMINATION: Lungs are clear with diminished air entry to bilateral bases. ABDOMEN: Soft, nontender. Bowel sounds are heard. No organomegaly noted. EXTREMITIES: 2+ peripheral pulses with no evidence of peripheral edema and no calf tenderness noted. NEUROLOGIC patient is awake, alert and oriented -3. . - Labs CBC & Chem 7: 12/04/17 06:15 12/04/17 06:15 Labs: Abnormal Lab Results - Last 24 Hours (Table) 12/04/17 Range/Units 06:15 BUN 22 H (9-20) mg/dL Assessment and Plan Plan: Assessment #1 acute non-ST elevation [place] #2 atrial fibrillation was controlled heart rate #3 cardiomyopathy with EF between 40-45% #4 hypertension #5 CAD and prior revascularization #6 dyslipidemia Plan We will add a small dose of beta [place] to the patient's medication regime, continue the rest of his medications. He may be able to be discharged once cleared by the primary and we will make him a follow-up appointment in the office post discharge. DNP note has been reviewed, I agree with a documented findings and plan of care. Patient was seen and examined.
--- NOTE | 2017-12-04 16:05 | P.PN ---
Subjective Patient is seen and examined by me at bedside No more chest pain or dyspnea, no new complaints Objective - Vital Signs Vital signs: Vital Signs Temp 97.2 F L 12/04/17 12:00 Pulse 59 L 12/04/17 12:00 Resp 18 12/04/17 12:00 BP 117/68 12/04/17 12:00 Pulse Ox 98 12/04/17 12:00 Intake & Output 12/03/17 12/04/17 12/04/17 18:59 06:59 18:59 Intake Total 180 240 354 Output Total 0 Balance 180 240 354 Weight 70 kg Intake: Oral 180 240 354 Output: Urine 0 Stool 0 Other: Voiding Method Urinal Urinal Urinal # Voids 1 0 # Bowel Movements 0 - Exam Constitutional: No acute distress, conversant, pleasant Eyes: Anicteric sclerae, moist conjunctiva, no lid-lag PERRLA ENMT: NC/AT Oropharynx clear, no erythema, exudates Neck: Supple, FROM, no masses, or JVD No carotid bruits No thyromegaly Lungs: Clear to auscultation Clear to percussion Normal respiratory effort, no accessory muscle use Cardiovascular: Heart regular in rate and rhythm, No murmurs, gallops, or rubs No peripheral edema Abdominal: Soft Nontender, no guarding, rebound or rigidity Abdomen moving with respiration Normoactive bowel sounds No hepatomegaly, No splenomegaly No palpable mass No abdominal wall hernia noted Skin: Normal temperature, tone, texture, turgor No induration No subcutaneous nodules No rash, lesions No ulcers Extremities: No digital cyanosis No clubbing Pedal pulses intact and symmetrical Radial pulses intact and symmetrical Normal gait and station No calf tenderness Psychiatric: Alert and oriented to person, place and time Appropriate affect Intact judgement Neuro: Muscles Strength 5/5 in all 4 extremities Sensation to light touch grossly present throughout Cranial nerves II-XII grossly intact No focal sensory deficits - Labs CBC & Chem 7: 12/04/17 06:15 12/04/17 06:15 Labs: Abnormal Lab Results - Last 24 Hours (Table) 12/04/17 Range/Units 06:15 BUN 22 H (9-20) mg/dL Assessment and Plan Plan: Plan: - NSTEMI, continue with aspirin and imdur s/p heparin drip, EF 45%, continue with conservative management, cardiology consultation is appreciated -New-onset A. fib, continue with anticoagulation on liquids -CKD stage III, patient is creatinine is 1.3 [baseline 1.03 -1.3] -htn, CONTINUE WITH LISINOPRIL 40 MG DAILY -Generalized weakness, related to his advanced age and deconditioning since his been started on eliquis and he is at-risk of fall we will ask for PT OT to evaluate the patient DVT prophylaxis patient is on anticoagulation
[2017-12-04] MEDS: ATORVASTATIN 20 MG TAB PO SCH (20:36)
[2017-12-05] MEDS: LEVOTHYROXINE 50 MCG TAB PO SCH (06:01)
[2017-12-05] MEDS: PANTOPRAZOLE 40 MG TABLET PO SCH ×2 (06:01→15:50)
[2017-12-05 06:51] LABS: Basophils % (A) 1 %; Eosinophils # (A) 0.2 k/uL (0-0.7); Eosinophils % (A) 3 %; HCT 38.3 % (39.0-53.0); HGB 12.2 gm/dL (13.0-17.5); Lymphocytes # (A) 1.2 k/uL (1.0-4.8); Lymphocytes % (A) 22 %; MCH 27.5 pg (25.0-35.0); MCHC 31.7 g/dL (31.0-37.0); MCV 86.9 fL (80.0-100.0); Mean Platelet Volume 7.5; Monocytes # (A) 0.5 k/uL (0-1.0); Monocytes % (A) 9 %; Neutrophils # (A) 3.5 k/uL (1.3-7.7); Neutrophils % (A) 64 %; Platelet Count 186 k/uL (150-450); RBC 4.41 m/uL (4.30-5.90); RDW 15.1 % (11.5-15.5); WBC 5.4 k/uL (3.8-10.6)
[2017-12-05 07:00] LABS: Calcium 9.7 mg/dL (8.4-10.2); Potassium 4.4 mmol/L (3.5-5.1)
[2017-12-05] MEDS: METOPROLOL SUCCINATE (ER) 25 MG TAB.ER.24H PO SCH (09:29)
[2017-12-05] MEDS: APIXABAN 2.5 MG TABLET PO SCH ×2 (09:29→20:30)
[2017-12-05] MEDS: ISOSORBIDE MONONITRATE ER 30 MG TAB.ER.24H PO SCH (09:29)
[2017-12-05] MEDS: LISINOPRIL 20 MG TAB PO SCH (09:29)
--- NOTE | 2017-12-05 10:17 | PN ---
PROGRESS NOTE DATE OF SERVICE: 12/05/2017. HISTORY: Mr. Pruett is an 87-year-old male who presented to the hospital with symptoms of chest discomfort. He is feeling well this morning. His breathing is stable. He had mild elevation of his troponin. He had episode of atrial fibrillation. He has no chest pain. He has a known history of coronary disease status post bypass grafting. He has been ambulating without difficulty. He continues to be, at this time, on Eliquis 2.5 mg twice a day, Lipitor 10 mg daily, isosorbide mononitrate 30 mg daily, levothyroxine, lisinopril 5 mg daily, metoprolol succinate 25 mg daily, and Protonix. PHYSICAL EXAMINATION: Blood pressure 122/80 with a heart in the 60s. Lungs are clear. Heart irregular regular, S1, S2. No S3. No rub. Abdomen is soft, nontender. Extremities, no edema. LAB DATA: BUN and creatinine 22 and 1.4, potassium 4.4, hemoglobin of 12.2. IMPRESSION: 1. History of coronary disease status post bypass grafting. 2. Atrial fibrillation, rate controlled and anticoagulated. 3. History of mild to moderate cardiomyopathy. 4. Mild elevation of troponin. 5. Hyperlipidemia. 6. Hypertension. RECOMMENDATIONS: From the cardiac standpoint, we will continue present therapy. I would expect he should be able to be discharged home soon and follow up with Dr. Sorensen on a regular basis. MMSHOSHANA / LIVIA: [id number] /
[2017-12-05 14:08] LABS: Basophils % (A) 1 %; Eosinophils # (A) 0.1 k/uL (0-0.7); Eosinophils % (A) 2 %; HCT 36.4 % (39.0-53.0); HGB 11.7 gm/dL (13.0-17.5); Lymphocytes # (A) 1.2 k/uL (1.0-4.8); Lymphocytes % (A) 23 %; MCH 27.5 pg (25.0-35.0); Mean Platelet Volume 7.9; Monocytes # (A) 0.5 k/uL (0-1.0); Monocytes % (A) 9 %; Neutrophils # (A) 3.5 k/uL (1.3-7.7); Neutrophils % (A) 63 %; Platelet Count 184 k/uL (150-450); RBC 4.24 m/uL (4.30-5.90); RDW 15.1 % (11.5-15.5); WBC 5.5 k/uL (3.8-10.6)
[2017-12-05 14:16] LABS: Calcium 9.5 mg/dL (8.4-10.2); Potassium 4.8 mmol/L (3.5-5.1)
--- NOTE | 2017-12-05 20:13 | P.PN ---
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 pt to be re- evaluated by primary cardiology team ROS: 6 point systemic review were negative except that is mentioned above - Exam vitals: reviewed Constitutional: No acute distress, conversant, pleasant Eyes: Anicteric sclerae, moist conjunctiva, no lid-lag PERRLA ENMT: NC/AT Oropharynx clear, no erythema, exudates Neck: Supple, FROM, no masses, or JVD No carotid bruits No thyromegaly Lungs: Clear to auscultation Clear to percussion Normal respiratory effort, no accessory muscle use Cardiovascular: Heart regular in rate and rhythm, No murmurs, gallops, or rubs No peripheral edema Abdominal: Soft Nontender, no guarding, rebound or rigidity Abdomen moving with respiration Normoactive bowel sounds No hepatomegaly, No splenomegaly No palpable mass No abdominal wall hernia noted Skin: Normal temperature, tone, texture, turgor No induration No subcutaneous nodules No rash, lesions No ulcers Extremities: No digital cyanosis No clubbing Pedal pulses intact and symmetrical Radial pulses intact and symmetrical Normal gait and station No calf tenderness Psychiatric: Alert and oriented to person, place and time Appropriate affect Intact judgement Neuro: Muscles Strength 5/5 in all 4 extremities Sensation to light touch grossly present throughout Cranial nerves II-XII grossly intact No focal sensory deficits Plan: -NSVT, to be re-evaluated in the morning , pt is asymptomatic, c/w telemetry - NSTEMI, continue with aspirin and imdur s/p heparin drip, EF 45%, continue with conservative management, cardiology consultation is appreciated -New-onset A. fib, continue with anticoagulation on liquids -CKD stage III, patient is creatinine is 1.3 [baseline 1.03 -1.3] -htn, CONTINUE WITH LISINOPRIL 40 MG DAILY -Generalized weakness, related to his advanced age and deconditioning since his been started on eliquis and he is at-risk of fall we will ask for PT OT to evaluate the patient DVT prophylaxis patient is on anticoagulation Objective - Vital Signs Vital signs: Vital Signs Temp 96.9 F L 12/05/17 16:00 Pulse 67 12/05/17 16:00 Resp 18 12/05/17 16:00 BP 143/74 12/05/17 16:00 Pulse Ox 98 12/05/17 16:00 Intake & Output 12/05/17 12/05/17 12/06/17 06:59 18:59 06:59 Intake Total 300 716 Balance 300 716 Weight 70.9 kg Intake: Oral 300 716 Other: Voiding Method Urinal Urinal # Voids 2 1 - Labs CBC & Chem 7: 12/05/17 13:52 12/05/17 13:52 Labs: Abnormal Lab Results - Last 24 Hours (Table) 12/05/17 12/05/17 12/05/17 Range/Units 06:29 06:29 13:52 RBC 4.24 L (4.30-5.90) m/uL Hgb 12.2 L 11.7 L (13.0-17.5) gm/dL Hct 38.3 L 36.4 L (39.0-53.0) % BUN 22 H (9-20) mg/dL Creatinine 1.40 H (0.66-1.25) mg/dL Glucose (74-99) mg/dL 12/05/17 Range/Units 13:52 RBC (4.30-5.90) m/uL Hgb (13.0-17.5) gm/dL Hct (39.0-53.0) % BUN 21 H (9-20) mg/dL Creatinine 1.31 H (0.66-1.25) mg/dL Glucose 104 H (74-99) mg/dL
[2017-12-05] MEDS: ATORVASTATIN 20 MG TAB PO SCH (20:30)
[2017-12-06] MEDS ORDERED: MELATONIN 5 MG TABLET PO PRN (00:58)
[2017-12-06 01:06] VITALS: RESP 18
[2017-12-06 06:02] LABS: Basophils % (A) 1 %; Eosinophils # (A) 0.2 k/uL (0-0.7); Eosinophils % (A) 3 %; HCT 36.2 % (39.0-53.0); HGB 12.1 gm/dL (13.0-17.5); Lymphocytes # (A) 1.6 k/uL (1.0-4.8); Lymphocytes % (A) 27 %; MCH 28.1 pg (25.0-35.0); MCHC 33.4 g/dL (31.0-37.0); MCV 84.3 fL (80.0-100.0); Mean Platelet Volume 7.1; Monocytes # (A) 0.5 k/uL (0-1.0); Monocytes % (A) 8 %; Neutrophils # (A) 3.5 k/uL (1.3-7.7); Neutrophils % (A) 59 %; Platelet Count 186 k/uL (150-450); RDW 14.8 % (11.5-15.5); WBC 5.9 k/uL (3.8-10.6)
[2017-12-06 06:12] LABS: Calcium 9.8 mg/dL (8.4-10.2); Magnesium 1.8 mg/dL (1.6-2.3); Potassium 4.1 mmol/L (3.5-5.1)
[2017-12-06] MEDS: PANTOPRAZOLE 40 MG TABLET PO SCH (06:39)
[2017-12-06] MEDS: LEVOTHYROXINE 50 MCG TAB PO SCH (06:39)
[2017-12-06] MEDS: LISINOPRIL 20 MG TAB PO SCH (08:56)
[2017-12-06] MEDS: ISOSORBIDE MONONITRATE ER 30 MG TAB.ER.24H PO SCH (08:56)
[2017-12-06] MEDS: APIXABAN 2.5 MG TABLET PO SCH (08:56)
[2017-12-06] MEDS: METOPROLOL SUCCINATE (ER) 25 MG TAB.ER.24H PO SCH (08:56)
--- NOTE | 2017-12-06 13:59 | P.PN ---
Subjective Progress Note Date: 12/06/17 This is a pleasant 87-year-old gentleman who sees Dr. Sorensen in the office as an outpatient with a past medical history significant for CAD and status post CABG 32 years ago as well as hypertension and dyslipidemia presented to the hospital with upper back pain. The patient was seen in the hospital last week after he presented with upper back pain and was found to be bradycardic with a heart rate in the 50s with an EKG showing sinus rhythm with trifascicular block. At that point the atenolol which was one of the home medication was stopped and the patient was started on lisinopril and discharged home the following day in stable medical condition. Since discharge home he has been monitoring the blood pressure. He noticed that the blood pressure was elevated. He called Dr. Sorensen and the dose of lisinopril was increased to 20 mg by mouth twice a day. Yesterday he was at home and he had some lumbar back pain without any chest pain or discomfort or shortness of breath or dizziness or lightheadedness or syncope. His stated that he had some sweating with the upper back pain. He decided to come to the hospital where he was found to be in atrial fibrillation with controlled heart rate. This is a new diagnosis to the patient. Beside that the cardiac enzymes came in to be slightly abnormal. The blood pressure has been reasonably controlled in the hospital. He was started on heparin IV. During the last admission he underwent an echocardiogram and that revealed impaired LV function with an ejection fraction of 45% with evidence of mild aortic stenosis. 12/04/2017 Patient was seen and examined this morning, up ambulating in the hallway without any difficulty. Hemodynamically stable. He states that through the night last night, he had an episode where he felt chilled, then became extremely diaphoretic. He has remained afebrile. We will add a small dose of beta [place] to his medication regime and continue the rest of his medications. 12/06/2017 Patient was seen and examined this morning, doing well overall. Hemodynamically stable. In atrial fibrillation, having PVCs on the monitor. From our perspective, he may be able to be discharged home today to follow-up with Dr. Sorensen in the office. Objective - Vital Signs Vital signs: Vital Signs Temp 96.8 F L 12/06/17 08:00 Pulse 84 12/06/17 08:00 Resp 18 12/06/17 08:00 BP 112/67 12/06/17 08:00 Pulse Ox 96 12/06/17 08:00 Intake & Output 12/05/17 12/06/17 12/06/17 18:59 06:59 18:59 Intake Total 716 260 540 Output Total 0 0 Balance 716 260 540 Weight 69.7 kg Intake: IV 20 Invasive Line 1 20 Oral 716 240 540 Output: Urine 0 Stool 0 0 Other: Voiding Method Urinal Urinal Urinal # Voids 1 1 - Exam PHYSICAL EXAMINATION: HEENT: Head is atraumatic, normocephalic. Pupils equal, round. Neck is supple. There is no elevated jugular venous pressure. HEART EXAMINATION: Heart S1 and S2 irregularly irregular a systolic murmur is heard CHEST EXAMINATION: Lungs are clear with diminished air entry to bilateral bases. ABDOMEN: Soft, nontender. Bowel sounds are heard. No organomegaly noted. EXTREMITIES: 2+ peripheral pulses with no evidence of peripheral edema and no calf tenderness noted. NEUROLOGIC patient is awake, alert and oriented -3. . - Labs CBC & Chem 7: 12/06/17 05:42 12/06/17 05:42 Labs: Abnormal Lab Results - Last 24 Hours (Table) 12/05/17 12/05/17 12/06/17 Range/Units 13:52 13:52 05:42 RBC 4.24 L (4.30-5.90) m/uL Hgb 11.7 L 12.1 L (13.0-17.5) gm/dL Hct 36.4 L 36.2 L (39.0-53.0) % BUN 21 H (9-20) mg/dL Creatinine 1.31 H (0.66-1.25) mg/dL Glucose 104 H (74-99) mg/dL 12/06/17 Range/Units 05:42 RBC (4.30-5.90) m/uL Hgb (13.0-17.5) gm/dL Hct (39.0-53.0) % BUN 24 H (9-20) mg/dL Creatinine 1.30 H (0.66-1.25) mg/dL Glucose (74-99) mg/dL Assessment and Plan Plan: Assessment #1 acute non-ST elevation ID #2 atrial fibrillation was controlled heart rate #3 cardiomyopathy with EF between 40-45% #4 hypertension #5 CAD and prior revascularization #6 dyslipidemia Plan From cardiology's perspective, patient may be able to be discharged once cleared by the primary. We will make him a follow-up appointment to see Dr. Sorensen back in the office post discharge. DNP note has been reviewed, I agree with a documented findings and plan of care. Patient was seen and examined.
[2017-12-06 14:30] VITALS: BP 100/64; PULSE 73; TEMP 96.2
--- NOTE | 2017-12-08 15:57 | P.PN ---
Progress Note - Text Progress Note Date: 12/08/17 This is an addendum to the cardiology progress note dictated. Patient has a chronic persistent atrial fibrillation. DNP note has been reviewed, I agree with a documented findings and plan of care. Patient was seen and examined.
== END 2017-12-06 16:40 | disposition home or self-care (01) | DRG 281 ==
LOC: EC 20:03 → 6SEL 21:54
PROVIDERS: ADMIT Family Medicine; ATTEND Family Medicine
DX: I21.4 Non-ST elevation (NSTEMI) myocardial infarction (principal); I42.9 Cardiomyopathy, unspecified; I45.3 Trifascicular block; J98.11 Atelectasis; I48.2 Chronic atrial fibrillation; I35.0 Nonrheumatic aortic (valve) stenosis; I12.9 Hypertensive chronic kidney disease with stage 1 through stage 4 chronic kidney disease, or unspecified chronic kidney disease; N18.3 Chronic kidney disease, stage 3 (moderate); I25.10 Atherosclerotic heart disease of native coronary artery without angina pectoris; K21.9 Gastro-esophageal reflux disease without esophagitis; E78.5 Hyperlipidemia, unspecified; I25.2 Old myocardial infarction; M19.91 Primary osteoarthritis, unspecified site; Z79.82 Long term (current) use of aspirin; Z79.890 Hormone replacement therapy; Z79.899 Other long term (current) drug therapy; Z85.46 Personal history of malignant neoplasm of prostate; Z90.79 Acquired absence of other genital organ(s); Z87.11 Personal history of peptic ulcer disease; Z85.028 Personal history of other malignant neoplasm of stomach; Z90.49 Acquired absence of other specified parts of digestive tract; Z95.1 Presence of aortocoronary bypass graft; Z98.42 Cataract extraction status, left eye; Z98.41 Cataract extraction status, right eye; Z87.891 Personal history of nicotine dependence; Z88.8 Allergy status to other drugs, medicaments and biological substances; Z82.49 Family history of ischemic heart disease and other diseases of the circulatory system
CPT/HCPCS: 36415; 71046; 80048; 80053; 80061; 82550; 82553; 83735; 84484; 85025; 85610; 85730; 93005; 96365; 96375; 96376; 99284

== ENCOUNTER 2018-08-22 00:40 | Emergency (ER) | payer MEDICARE, BC ==
--- NOTE | 2018-08-22 01:53 | XR ---
EXAMINATION TYPE: XR chest 2V DATE OF EXAM: 08/22/2018 COMPARISON: 04/28/2018 HISTORY: Chest pain TECHNIQUE: Frontal and lateral views of the chest are obtained. FINDINGS: Heart appears enlarged. Thoracic aorta is atherosclerotic and tortuous. There are sternal wires. There is mild coarsening of interstitial markings. There is no heart failure. There is no pleu ral effusion. IMPRESSION: Cardiomegaly. Atheromatous aorta. No acute lung disease. Pulmonary fibrosis. No change.
[2018-08-22] MEDS ORDERED: IPRATROPIUM-ALBUTEROL 3 ML NEB INHALATION STA (03:31)
--- NOTE | 2018-08-22 03:46 | ED ---
URI HPI - General Chief Complaint: Upper Respiratory Infection Stated Complaint: Cold, Cough, chest magali Time Seen by Provider: 08/22/18 03:30 Source: patient, family Mode of arrival: ambulatory Limitations: no limitations - History of Present Illness Initial Comments: Avila is a pleasant 88-year-old male who presents to the emergency department today for evaluation of wheezing. Patient reports he's had intermittent nonproductive coughing throughout the month. He reports that this evening he felt like his wheezing was worse than usual. Patient reports he worked his whole career being exposed to his best dose and believes he is developed some exposure related lung disease. He does follow with a primary care physician. He denies any chest pain, palpitations or shortness of breath or discomfort. He reports he can feel himself wheezing so he came to the ER for evaluation. - Related Data Home Medications Medication Instructions Recorded Confirmed Simvastatin [Zocor] 40 mg PO HS 11/12/14 04/28/18 Aspirin EC [Ecotrin Low Dose] 81 mg PO DAILY 11/26/17 04/28/18 Levothyroxine Sodium [Synthroid] 50 mcg PO DAILY 11/26/17 04/28/18 Lisinopril [Zestril] 40 mg PO DAILY 12/02/17 04/28/18 Citalopram Hydrobromide [CeleXA] 20 mg PO DAILY 04/28/18 04/28/18 Pantoprazole Sodium [Protonix] 40 mg PO DAILY 04/28/18 04/28/18 Previous Rx's Medication Instructions Recorded Apixaban [Eliquis] 2.5 mg PO BID #60 tablet 12/05/17 Isosorbide Mononitrate ER [Imdur] 30 mg PO DAILY #30 tab.er.24h 12/05/17 Metoprolol Succinate (ER) [Toprol 25 mg PO DAILY #30 tab.er.24h 12/05/17 XL] Albuterol Inhaler [Ventolin Hfa 1 - 2 puff INHALATION RT-Q6H PRN 08/22/18 Inhaler] #1 inhaler Allergies Allergy/AdvReac Type Severity Reaction Status Date / Time isosorbide mononitrate Allergy Unknown Verified 08/22/18 01:00 [From Imdur] rosuvastatin calcium Allergy Unknown Verified 08/22/18 01:00 [From Crestor] solifenacin succinate Allergy Unknown Verified 08/22/18 01:00 [From Vesicare] nitroglycerin AdvReac Unknown Verified 08/22/18 01:00 Review of Systems ROS Statement: Those systems with pertinent positive or pertinent negative responses have been documented in the HPI. ROS Other: All systems not noted in ROS Statement are negative. Past Medical History Past Medical History: Coronary Artery Disease (CAD), Cancer, GERD/Reflux, Hyperlipidemia, Hypertension, Myocardial Infarction ([place]), Osteoarthritis (OA), Prostate Disorder, Syncope Additional Past Medical History / Comment(s): Prostate cancer with prostatectomy in 2002 and radiation, occasional back pain, sinus problems. Recent admission to [facility] 11/13/16 diagnosis of hematemesis-bleeding stomach ulcer , stomach cancer-removed part of the stomach in January 2017. Last Myocardial Infarction Date:: 1984 History of Any Multi-Drug Resistant Organisms: None Reported Past Surgical History: Cholecystectomy, Coronary Bypass/CABG, Heart Catheterization, Hernia Repair, Orthopedic Surgery, Prostate Surgery Additional Past Surgical History / Comment(s): 11/13/16 EGD with bx, CABG 3 vessel in 1984, R rotator cuff repair, bilateral cataract removal, inguinal hernia repairs x 2, hemorrhoidectomy. Past Anesthesia/Blood Transfusion Reactions: No Reported Reaction Past Psychological History: No Psychological Hx Reported Smoking Status: Former smoker Past Alcohol Use History: None Reported Past Drug Use History: None Reported - Past Family History Father Family Medical History: Myocardial Infarction ([place]) Additional Family Medical History / Comment(s): Father had a [place] at the age of 55 yrs. Mother Family Medical History: No Reported History Additional Family Medical History / Comment(s): Mother was healthy and lived into her 80's. General Exam - General Exam Comments Initial Comments: Physical Exam GENERAL: Patient is well-developed and well-nourished. Patient is nontoxic and well- hydrated and is in no distress. HENT: Normocephalic, Atraumatic. EYES: PERRL, EOMI PULMONARY: Unlabored respirations. Mild expiratory wheezing in all lung au CARDIOVASCULAR: There is a regular rate and rhythm without any murmurs gallops or rubs. ABDOMEN: Soft and nontender with normal bowel sounds. SKIN: Skin is clear with no lesions or rashes and otherwise unremarkable. : Deferred NEUROLOGIC: Patient is alert and oriented x3. Moving all extremities spontaneously MUSCULOSKELETAL: Normal extremities with adequate strength and full range of motion. No lower extremity swelling or edema. No calf tenderness. PSYCHIATRIC: Normal psychiatric evaluation. Limitations: no limitations Limitations: no limitations Course Vital Signs 08/22/18 08/22/18 08/22/18 00:56 03:19 03:40 Temperature 98.1 F Pulse Rate 71 80 Respiratory 18 20 Rate Blood Pressure 160/91 O2 Sat by Pulse 95 Oximetry 08/22/18 08/22/18 03:50 05:14 Temperature 97.3 F L Pulse Rate 84 84 Respiratory 18 Rate Blood Pressure 157/90 O2 Sat by Pulse 97 Oximetry Medical Decision Making - Medical Decision Making The patient was seen and evaluated history was obtained from the patient and at bedside Breathing treatment was ordered Chest x-ray with no acute findings Patient reports feeling much better after duoneb Return parameters were discussed, all questions pertaining to care were answered. Patient discharged home in stable condition. Disposition Clinical Impression: Wheeze Disposition: HOME SELF-CARE Condition: Good Instructions: Upper Respiratory Infection (ED) Prescriptions: Albuterol Inhaler [Ventolin Hfa Inhaler] 1 - 2 puff INHALATION RT-Q6H PRN #1 inhaler PRN Reason: Wheezing Is patient prescribed a controlled substance at d/c from ED?: No Referrals: Blayne Chand MD [Primary Care Provider] - 1-2 days
[2018-08-22 03:51] VITALS: PULSE 84
[2018-08-22 05:15] VITALS: BP 157/90; RESP 18; TEMP 97.3
--- NOTE | 2018-08-25 00:32 | CDI ---
Dear Anuradha Britton DO: Please do addendum History of Present Illness and Physical Examination. Thank you, Yves Sanchez, Talend Etl Developer. If you have any questions, please contact Legal Referee at [phone]. [facility]
== END 2018-08-22 05:14 | disposition home or self-care (01) ==
LOC: EC 00:40
DX: R06.2 Wheezing (principal); R05 Cough; I25.10 Atherosclerotic heart disease of native coronary artery without angina pectoris; K21.9 Gastro-esophageal reflux disease without esophagitis; E78.5 Hyperlipidemia, unspecified; I10 Essential (primary) hypertension; I25.2 Old myocardial infarction; M19.90 Unspecified osteoarthritis, unspecified site; Z85.46 Personal history of malignant neoplasm of prostate; Z85.028 Personal history of other malignant neoplasm of stomach; Z87.891 Personal history of nicotine dependence; Z79.82 Long term (current) use of aspirin; Z79.899 Other long term (current) drug therapy; Z88.8 Allergy status to other drugs, medicaments and biological substances; Z95.1 Presence of aortocoronary bypass graft; Z95.818 Presence of other cardiac implants and grafts
CPT/HCPCS: 71046; 94640; 99283

== ENCOUNTER → 2018-10-27 | Outpatient (CLI) | payer MEDICARE, BC ==
--- NOTE | 2018-10-27 15:46 | CT ---
EXAMINATION TYPE: CT abdomen pelvis w con DATE OF EXAM: 10/27/2018 COMPARISON: 11/04/2017 and 12/25/2016 HISTORY: 88-year-old male Follow up scan. History of gastric and prostate cancer TECHNIQUE: Contiguous axial scanning of the abdomen and pelvis following administration of 100 ml Iso virgilio 300 IV contrast. Delayed images through the kidneys and coronal/sagittal reconstructions perform ed. CT DLP: 739.5 mGycm Automated exposure control for dose reduction was used. FINDINGS: Median sternotomy wires are present. Aortic valvular calcifications. 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 Lung bases clear without pleural effusion. Tiny hiatal hernia. Punctate calcification centrally in the right liver lobe is unchanged. No other focal liver lesion. P ortal venous system is patent. No biliary ductal dilatation. Moderate atherosclerotic calcifications abdominal aorta and common iliac arteries with fusiform AAA m easuring 3.3 cm, unchanged from 11/04/2017. Lobulated cyst left kidney measuring 3.1 cm is unchanged. Renal cortical thinning suggests chronic me dical renal disease. Adrenal glands, spleen, mildly atrophic pancreas show no gross abnormality. Large 13.2 cm cyst of the right kidney relatively unchanged from 11/04/2017. Additional right-sided re nal cysts are also redemonstrated. Postsurgical changes with distal gastric resection and Renee-en-Y gastric bypass. No mesenteric or retroperitoneal lymphadenopathy. No dilated small bowel, free fluid, or free air. High riding cecum with normal appendix. Mild stool burden. Left hemicolonic diverticulosis, greatest in the sigmoid colon. Surgical clips along the pelvic sidewalls and prostatic bed from prior prostatectomy. Multiple pelvic phleboliths. No abnormal fluid collection in the pelvis or pelvic lymphadenopathy. Bones: Osteopenia. Degenerative changes at the hips and lower lumbar spine. Grade 1 anterolisthesis a t L4-L5. Mild vertebral compression deformities of T10, L1, L2 remains unchanged. IMPRESSION: 1. STATUS POST DISTAL GASTRECTOMY WITH RENEE-EN-Y SURGERY. THE DUODENAL STUMP NOW HAS A NORMAL APPEARA NCE. 2. NO EVIDENCE FOR METASTATIC DISEASE TO THE ABDOMEN OR PELVIS. 3. INCIDENTAL: POST PROSTATECTOMY AND LYMPH NODE DISSECTION CHANGES, SMALL HIATAL HERNIA, LEFT-SIDED COLONIC DIVERTICULOSIS, A STABLE 3.3 CM AAA. VERY LARGE RIGHT RENAL CYST AT 13.2 CM IN UNCHANGED.
== END ==
LOC: RADCTMAIN 11:03
PROVIDERS: ATTEND Internal Medicine Hematology & Oncology
DX: N28.1 Cyst of kidney, acquired (principal); C16.2 Malignant neoplasm of body of stomach; Z90.3 Acquired absence of stomach [part of]
CPT/HCPCS: 82565; 84520; 74177; 36415; Q9967

== ENCOUNTER 2019-04-22 04:22 | Observation (INO) | payer MEDICARE, BC ==
[2019-04-22 05:21] LABS: Anisocytosis Slight; Basophils # (A) 0.1 k/uL (0-0.2); Basophils % (A) 1 %; Eosinophils # (A) 0.3 k/uL (0-0.7); Eosinophils % (A) 4 %; HCT 43.3 % (39.0-53.0); HGB 14.5 gm/dL (13.0-17.5); Lymphocytes # (A) 1.7 k/uL (1.0-4.8); Lymphocytes % (A) 25 %; MCH 29.7 pg (25.0-35.0); MCHC 33.5 g/dL (31.0-37.0); MCV 88.7 fL (80.0-100.0); Mean Platelet Volume 7.2; Monocytes # (A) 0.6 k/uL (0-1.0); Monocytes % (A) 9 %; Neutrophils % (A) 58 %; Platelet Count 169 k/uL (150-450); RBC 4.88 m/uL (4.30-5.90); WBC 6.8 k/uL (3.8-10.6)
[2019-04-22 05:30] LABS: Albumin 4.2 g/dL (3.5-5.0); Calcium 9.8 mg/dL (8.4-10.2); INR 0.9 (<1.2); Magnesium 1.8 mg/dL (1.6-2.3); Partial Thromboplastin Time 23.9 sec (22.0-30.0); Potassium 4.1 mmol/L (3.5-5.1); Prothrombin Time 10.2 sec (9.0-12.0); Total Bilirubin 1.9 mg/dL (0.2-1.3); Total Protein 7.3 g/dL (6.3-8.2)
--- NOTE | 2019-04-22 05:35 | XR ---
EXAM: XR Chest, 2 Views CLINICAL HISTORY: Chest Pain TECHNIQUE: Frontal and lateral views of the chest. COMPARISON: 09/14/2018 FINDINGS: Lungs: No focal consolidation. The pulmonary vasculature demonstrates no significant radiographic abnormality. Pleural space: No large pleural effusion identified. No pneumothorax. Heart: The cardiac silhouette is upper limits of normal in caliber and is stable from the previous examination. Mediastinum: The mediastinal contours are stable from the previous examination without significant abnormality. The trachea is midline. Episodic calcification of the aortic arch is stable from the previous exam. Bones/joints: Intact sternotomy wires and mediastinal clips noted. IMPRESSION: Postsurgical changes consistent with prior CABG. No focal consolidation or significant interval change from the previous examination.
--- NOTE | 2019-04-22 05:49 | ED ---
Chest Pain HPI - General Chief Complaint: Chest Pain Stated Complaint: Chest pain Time Seen by Provider: 04/22/19 04:39 Source: patient, family Mode of arrival: ambulatory Limitations: no limitations - History of Present Illness Initial Comments: Avila is an 89 yo male with PMH of CAD s/p CABG in the distant past who presents to the ER today for evaluation of chest pain. Patient states that he isnt a very heavy sleeper, he woke this morning with left sided chest pressure. Patient reports pressure but denies lightheadedness or diaphoresis. Patient reports chest pain is better while resting in bed. Patient cannot recall his last stress test or cardiac cath. - Related Data Home Medications Medication Instructions Recorded Confirmed Simvastatin [Zocor] 40 mg PO HS 11/12/14 04/28/18 Aspirin EC [Ecotrin Low Dose] 81 mg PO DAILY 11/26/17 04/28/18 Levothyroxine Sodium [Synthroid] 50 mcg PO DAILY 11/26/17 04/28/18 Lisinopril [Zestril] 40 mg PO DAILY 12/02/17 04/28/18 Citalopram Hydrobromide [CeleXA] 20 mg PO DAILY 04/28/18 04/28/18 Pantoprazole Sodium [Protonix] 40 mg PO DAILY 04/28/18 04/28/18 Previous Rx's Medication Instructions Recorded Apixaban [Eliquis] 2.5 mg PO BID #60 tablet 12/05/17 Isosorbide Mononitrate ER [Imdur] 30 mg PO DAILY #30 tab.er.24h 12/05/17 Metoprolol Succinate (ER) [Toprol 25 mg PO DAILY #30 tab.er.24h 12/05/17 XL] Albuterol Inhaler [Ventolin Hfa 1 - 2 puff INHALATION RT-Q6H PRN 08/22/18 Inhaler] #1 inhaler Allergies Allergy/AdvReac Type Severity Reaction Status Date / Time isosorbide mononitrate Allergy Unknown Verified 04/22/19 04:30 [From Imdur] rosuvastatin calcium Allergy Unknown Verified 04/22/19 04:30 [From Crestor] solifenacin succinate Allergy Unknown Verified 04/22/19 04:30 [From Vesicare] nitroglycerin AdvReac Unknown Verified 08/31/19 04:30 Review of Systems ROS Statement: Those systems with pertinent positive or pertinent negative responses have been documented in the HPI. ROS Other: All systems not noted in ROS Statement are negative. EKG Findings - EKG Comments: EKG Findings:: EKG was obtained at 4:34 AM EKG obtained due to complaint of chest pain. Rate is 84 rhythm is atrial fibrillation with a leftward axis and a right bundle branch block. QRS is 140 QTC is 496 there are no acute ST elev ations or depressions. When EKG was compared to EKG obtained from April of last year there no significant change in morphology. No evidence of acute ischemia or infarction. Past Medical History Past Medical History: Coronary Artery Disease (CAD), Cancer, GERD/Reflux, Hyperlipidemia, Hypertension, Myocardial Infarction ([place]), Osteoarthritis (OA), Prostate Disorder, Syncope Additional Past Medical History / Comment(s): Prostate cancer with prostatectomy in 2002 and radiation, occasional back pain, sinus problems. Recent admission to [facility] 11/13/16 diagnosis of hematemesis-bleeding stomach ulcer, stomach cancer- removed part of the stomach in January 2017. Last Myocardial Infarction Date:: 1984 History of Any Multi-Drug Resistant Organisms: None Reported Past Surgical History: Cholecystectomy, Coronary Bypass/CABG, Heart Catheterization, Hernia Repair, Orthopedic Surgery, Prostate Surgery Additional Past Surgical History / Comment(s): 11/13/16 EGD with bx, CABG 3 vessel in 1984, R rotator cuff repair, bilateral cataract removal, inguinal hernia repairs x 2, hemorrhoidectomy. Past Anesthesia/Blood Transfusion Reactions: No Reported Reaction Past Psychological History: No Psychological Hx Reported Smoking Status: Former smoker Past Alcohol Use History: None Reported Past Drug Use History: None Reported - Past Family History Father Family Medical History: Myocardial Infarction ([place]) Additional Family Medical History / Comment(s): Father had a [place] at the age of 55 yrs. Mother Family Medical History: No Reported History Additional Family Medical History / Comment(s): Mother was healthy and lived into her 80's. General Exam - General Exam Comments Initial Comments: Physical Exam GENERAL: Patient is well-developed and well-nourished. Patient is nontoxic and well- hydrated and is in no distress. HENT: Normocephalic, Atraumatic. EYES: PERRL, EOMI PULMONARY: Unlabored respirations. No audible rales rhonchi or wheezing was noted. CARDIOVASCULAR: Irregularly irregular Warm and well-perfused extremities ABDOMEN: Soft and nontender with normal bowel sounds. No pulsatile masses SKIN: Skin is clear with no lesions or rashes and otherwise unremarkable. : Deferred NEUROLOGIC: Patient is alert and oriented x3. Moving all extremities spontaneously MUSCULOSKELETAL: Normal extremities with adequate strength and full range of motion. No lower extremity swelling or edema. No calf tenderness. PSYCHIATRIC: Normal psychiatric evaluation. 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 ] Respiratory 20 18 Rate Blood Pressure 168/97 166/92 O2 Sat by Pulse 97 97 Oximetry Chest Pain MDM - MDM Patient is an 89-year-old gentleman with known history of coronary artery disease presenting to the emergency department today for evaluation of chest pain patient reports ALLERGY to nitro, reports that it has caused him to lose consciousness due to low blood pressure in the past Cardiac workup was initiated Chest x-ray with postsurgical changes no evidence of acute pathology Disposition Clinical Impression: Chest pain Disposition: ADMITTED IP TO THIS HOSP Condition: Stable Is patient prescribed a controlled substance at d/c from ED?: No Referrals: Blayne Chand MD [Primary Care Provider] - 1-2 days
[2019-04-22] MEDS ORDERED: ASPIRIN 81 MG PO STA (06:07)
[2019-04-22 06:42] VITALS: RESP 16; TEMP 97.5
[2019-04-22] MEDS ORDERED: BUDESONIDE 0.5 MG/2 ML NEBU INHALATION PRN (07:50)
[2019-04-22] MEDS ORDERED: LEVOTHYROXINE 50 MCG TAB PO SCH (09:00)
[2019-04-22] MEDS ORDERED: amLODIPine 5 MG TAB PO SCH (09:00)
[2019-04-22] MEDS ORDERED: APIXABAN 2.5 MG TABLET PO SCH (09:00)
[2019-04-22] MEDS ORDERED: ISOSORBIDE MONONITRATE ER 30 MG TAB.ER.24H PO SCH (09:00)
[2019-04-22] MEDS ORDERED: LISINOPRIL 20 MG TAB PO SCH (09:00)
[2019-04-22] MEDS ORDERED: METOPROLOL SUCCINATE (ER) 25 MG TAB.ER.24H PO SCH (09:00)
[2019-04-22] MEDS ORDERED: PANTOPRAZOLE 40 MG TABLET PO SCH (09:00)
[2019-04-22] MEDS ORDERED: ASPIRIN 81 MG PO SCH (10:00)
[2019-04-22 12:06] VITALS: BP 127/79; PULSE 52
--- NOTE | 2019-04-22 12:39 | CONS ---
CONSULTATION Avila Pruett is an 89-year-old elderly gentleman who has been admitted to the hospital early this morning. Apparently he is a light sleeper, woke up this morning with pressure in the left anterior chest. Pressure is a more or less sharp type, sometimes worse when he takes a deep breath, seems to occur over his left nipple area. He also admits to doing quite a bit of yard work. This elderly gentleman is remarkably active. He did a lot of yard work the day before yesterday and has tenderness over the site where he is pointing out to me. He remembers pushing something with this chest also. There is focal tenderness and when he takes a deep breath he does have some pain but seems very musculoskeletal. The quality of the pain does not suggest angina. This gentleman is known to have CAD and underwent prior aortocoronary bypass surgery that was performed in 1984, details of which are not available. He sees Dr. Sorensen in the outpatient setting. He is asymptomatic at this time, resting comfortably. Has no chest pain or shortness of breath. At the time of my evaluation he is quite comfortable. The initial set of troponin is unremarkable. Additional labs are pending. PAST MEDICAL HISTORY: 1. Remarkable for CAD with bypass surgery in 1984, details unavailable. 2. History of hypertension, hyperlipidemia, prostate disorder. 3. He also has chronic atrial fibrillation and takes apixaban 2.5 mg b.i.d. MEDICATIONS AT HOME WERE: Include Eliquis 2.5 mg b.i.d., amlodipine 5 mg daily, metoprolol succinate 25 mg, Zestril 40 mg daily, Synthroid 50 mcg daily, Imdur 30 mg daily, aspirin 81 mg daily. He is unsure if he takes it on a regular basis. ALLERGIES: HE IS ALLERGIC TO ROSUVASTATIN AND OTHER STATINS AND IMDUR AND SUBLINGUAL NITROGLYCERIN MADE HIM DIZZY. PHYSICAL EXAMINATION: Blood pressure is 160/80, he did not receive his Norvasc. Pulse rate is 62 per minute, irregular. HEENT unremarkable. Fundus was not examined by me. Neck is supple. There is evidence of JVD of 1 cm. No carotid bruit. Heart exam reveals S1, S2 heard normally. S1, S2 heard normally. There is a short systolic murmur audible at the base of the heart. Lungs revealed decent air entry. Abdomen is soft, nontender. Lower extremities reveal palpable pulses. No edema. Central nervous system is grossly within normal limits. EKG revealed atrial fibrillation with a controlled ventricular rate, right bundle branch block pattern and repolarization abnormality. IMPRESSION: 1. Atypical chest pain in a patient with known coronary artery disease, probably musculoskeletal chest pain. 2. Chronic atrial fibrillation with a fairly well controlled ventricular rates. 3. Coronary artery disease with prior bypass surgery in 1984. No active issues at this time. 4. History of hypertension. 5. Hyperlipidemia. RECOMMENDATIONS: Patient's pain seems very atypical. He did some yard work 36 hours ago and it seems more or less musculoskeletal. However, I will increase activity, resume all his home medications to optimize BP control. Specifically, he will get Norvasc this morning. If he has no further symptoms and the 2nd troponin is normal, he can be discharged and see Dr. Sorensen in the outpatient setting in one week. I discussed my thoughts in detail with the patient, and his daughter. Thank you very much for the consult. MMODL / IJN: [id number] /
--- NOTE | 2019-04-22 23:27 | HP ---
HISTORY AND PHYSICAL DATE OF SERVICE: 04/22/2019 I am covering for Dr. Chand. CHIEF COMPLAINT: Chest pain. HISTORY OF PRESENT ILLNESS: This 89-year-old gentleman with a past history of CAD, GERD, hypertension, hyperlipidemia, myocardial infarction, DJD, history of prostate disorder being followed by Dr. Blayne Chand in the outpatient setting, admitted with chest pain to [facility]. The patient's pain is more situated in the left side anterior part and lateral part which is increasing with respiration. Cardiology evaluation in prognosis. The troponins are negative ruling out the possibility of myocardial infarction. There is no history of fever or rigors. No headache, loss of consciousness or seizures at this time. PAST MEDICAL HISTORY: History of CAD, GERD, hypertension, hyperlipidemia, myocardial infarction, history of cholecystectomy, CAD, CABG, hypothyroidism. MEDICATIONS: Prior to admission include home medications are: 1. Eliquis 2.5 mg p.o. b.i.d. 2. Norvasc 5 mg p.o. daily. 3. Protonix 40 mg daily. 4. Toprol-XL 25 mg daily. 5. Zestril 40 mg. 6. Synthroid 50 mcg p.o. 7. Imdur 30 mg daily. 8. Pulmicort 0.5 mg q.6 p.r.n. 9. Aspirin 81 mg p.o. 10.Imdur. 11.Crestor. 12.Lasix. 13.Nitroglycerin. FAMILY HISTORY: History of myocardial infarction in the family. SOCIAL HISTORY: No history of smoking. No alcohol intake. REVIEW OF SYSTEMS: ENT No history of diminished hearing or vision. CARDIOVASCULAR As mentioned earlier. RESPIRATORY As mentioned earlier. GI No nausea, vomiting, or diarrhea. No dysuria. NERVOUS No numbness or weakness. ALLERGY/IMMUNOLOGY No asthma or hayfever. MUSCULOSKELETAL As mentioned earlier. HEMATOLOGY/ONCOLOGY Negative. ENDOCRINE No diabetes. SKIN Negative. CONSTITUTIONAL No history of fever or weight loss. PSYCHIATRY As mentioned earlier. PHYSICAL EXAMINATION: Alert and oriented. Pulse 52, blood pressure 127/79, respirations 16, temperature 97.4, pulse ox 94% on room air. HEENT: Conjunctivae normal. Oral mucosa moist. NECK: No jugular venous distention. No lymph node enlargement. CARDIOVASCULAR: S1, S2. RESPIRATORY: Diminished breath sounds at the bases. No rhonchi, no crackles. ABDOMEN: Soft, nontender. LEGS: No swelling. NERVOUS SYSTEM: Higher functions as mentioned. Moves all four limbs. No focal deficits. SKIN: No rash. JOINTS: No active deforming arthropathy. LABS: CBC within normal. Sodium 140, potassium 4.1. Total bilirubin is 1.9. ASSESSMENT: 1. Chest pain possibly atypical musculoskeletal or pleuritic, myocardial infarction ruled out. 2. Chronic atrial fibrillation. 3. Coronary artery disease, CABG. 4. Gastroesophageal reflux disease. 5. Hypertension. 6. Hyperlipidemia. 7. History of myocardial infarction. 8. History of syncope. 9. History of prostate cancer. RECOMMENDATIONS AND DISCUSSION: In this 89-year-old gentleman who presented with multiple medical issues, at this time I recommend to continue the current management. Myocardial infarction ruled out. Cardiology recommended outpatient followup. I recommend resume the home medications and followup. Symptomatic treatment of the pain with Tylenol and follow up closely with Dr. Chand and Cardiology. Please refer to the discharge list for of medications. MMODL / IJN: [id number] /
[2019-04-23] MEDS ORDERED: ASPIRIN 325 MG TAB PO SCH (09:00)
[2019-04-23] MEDS ORDERED: ASPIRIN 81 MG PO SCH (09:00)
--- NOTE | 2019-04-27 08:35 | DS ---
DISCHARGE SUMMARY FINAL DIAGNOSES: 1. Chest pain possibly atypical musculoskeletal pain or pleuritic, myocardial infarction ruled out. 2. Chronic atrial fibrillation. 3. Coronary artery disease, coronary artery bypass grafting. 4. Gastroesophageal reflux disease. 5. Hypertension. 6. Hyperlipidemia. 7. History of myocardial infarction. 8. History of syncope. 9. History of prostate cancer. DISCHARGE DISPOSITION: The patient will be discharged in stable condition with guarded prognosis. HISTORY OF PRESENT ILLNESS: This 89-year-old gentleman with past medical history of multiple medical problems being followed by Dr. Blayne Chand admitted with chest pain, myocardial infarction ruled out. Cardiology saw the patient, recommended outpatient followup. On exam, vitals are stable. CARDIOVASCULAR: S1, S2 muffled. ABDOMEN: Soft. NERVOUS SYSTEM: No focal deficits. DISCHARGE ADVICE: 1. Diet cardiac. 2. Activity limited until followup. 3. Follow up with Dr. Blayne Chand and Cardiology as recommended. MEDICATIONS: 1. Ecotrin 81 mg p.o. daily. 2. Eliquis 2.5 mg p.o. b.i.d. 3. Norvasc 5 mg p.o. daily. 4. Protonix 40 mg daily. 5. Pulmicort 0.5 q.6 p.r.n. 6. Synthroid 50 mcg p.o. daily. 7. Zestril 40 mg p.o. daily. 8. Imdur 30 mg p.o. daily. 9. Toprol XL 25 mg p.o. daily. Once again, patient will be discharged in stable condition with guarded prognosis. MMODL / IJN: [id number] /
== END 2019-04-22 13:49 | disposition home or self-care (01) ==
LOC: EC 04:22 → 1SOBS 06:14
PROVIDERS: ADMIT Internal Medicine; ATTEND Internal Medicine
DX: R07.89 Other chest pain (principal); I48.2 Chronic atrial fibrillation; I25.10 Atherosclerotic heart disease of native coronary artery without angina pectoris; Z95.1 Presence of aortocoronary bypass graft; K21.9 Gastro-esophageal reflux disease without esophagitis; I10 Essential (primary) hypertension; E78.5 Hyperlipidemia, unspecified; I25.2 Old myocardial infarction; E03.9 Hypothyroidism, unspecified; Z85.46 Personal history of malignant neoplasm of prostate; Z92.3 Personal history of irradiation; Z87.11 Personal history of peptic ulcer disease; Z85.028 Personal history of other malignant neoplasm of stomach; Z87.891 Personal history of nicotine dependence; Z90.79 Acquired absence of other genital organ(s); Z90.49 Acquired absence of other specified parts of digestive tract; Z79.82 Long term (current) use of aspirin; Z79.01 Long term (current) use of anticoagulants; Z79.890 Hormone replacement therapy; Z79.899 Other long term (current) drug therapy; Z88.8 Allergy status to other drugs, medicaments and biological substances; M19.90 Unspecified osteoarthritis, unspecified site; Z82.49 Family history of ischemic heart disease and other diseases of the circulatory system
CPT/HCPCS: 99285; 36415; 94640; 93005; 85379; 80053; 83735; 84484; 85025; 85610; 85730; 71046; G0378

== ENCOUNTER → 2019-05-03 | Outpatient (CLI) | payer MEDICARE, BC ==
--- NOTE | 2019-05-04 08:35 | US ---
EXAMINATION TYPE: US carotid duplex BILAT DATE OF EXAM: 05/03/2019 COMPARISON: NONE CLINICAL HISTORY: G45.3 Amaurosis Fugax of the left eye. Amaurosis Fugax EXAM MEASUREMENTS: RIGHT: Peak Systolic Velocity (PSV) cm/sec ----- Right CCA: 39.6 ----- Right ICA: 53.2 ----- Right ECA: 82.6 ICA/CCA ratio: 1.3 RIGHT: End Diastole cm/sec ----- Right CCA: 13.3 ----- Right ICA: 21.1 ----- Right ECA: 11.0 LEFT: Peak Systolic Velocity (PSV) cm/sec ----- Left CCA: 59.6 ----- Left ICA: 60.5 ----- Left ECA: 75.6 ICA/CCA ratio: 1.0 LEFT: End Diastole cm/sec ----- Left CCA: 20.4 ----- Left ICA: 25.6 ----- Left ECA: 12.7 VERTEBRALS (direction of flow): Right Vertebral: Antegrade Left Vertebral: Antegrade Rhythm: Arrhythmia Grayscale, color Doppler, spectral Doppler imaging performed. Mild atheromatous changes present at th e carotid bulbs. Waveform analysis shows no significant stenosis. IMPRESSION: No hemodynamic significant stenosis of the proximal internal carotid arteries by Doppler criteria, an indirect measurement of carotid stenosis. Cardiac arrhythmia noted incidentally.
== END | disposition home or self-care (01) ==
LOC: RADUSMAIN 17:17
PROVIDERS: ATTEND Family Medicine
DX: G45.3 Amaurosis fugax (principal)
CPT/HCPCS: 93880

== ENCOUNTER → 2019-10-17 | Outpatient (CLI) | payer MEDICARE, BC ==
--- NOTE | 2019-10-17 13:39 | XR ---
Cervical spine HISTORY: Neck pain 5 views of the cervical spine, correlation chest CT 11/26/2017, chest x-ray 04/22/2019 Bone mineralization is reduced. Cervical vertebral bodies show preserved height and alignment. Is mul tilevel spondylosis. Loss of disc height present at C5-6, C6-7, C7-T1. Multilevel facet arthropathy c hanges are present. Prevertebral soft tissues are normal. Postop changes noted status post median jasvir rnotomy. C3-4, C4-5 shows mild foraminal encroachment on the right, foraminal encroachment present on the left at C6-7. Atherosclerotic vascular calcifications present in the distribution of the carotid arteries. Increased density in the right lung apex is responding to vascular shadow. IMPRESSION: Degenerative disc disease, facet arthropathy, osteopenia. Additional findings above.
== END | disposition home or self-care (01) ==
LOC: RADXRMAIN 10:43
PROVIDERS: ATTEND Family Medicine
DX: M50.30 Other cervical disc degeneration, unspecified cervical region (principal); M47.812 Spondylosis without myelopathy or radiculopathy, cervical region; M46.92 Unspecified inflammatory spondylopathy, cervical region; Z98.890 Other specified postprocedural states
CPT/HCPCS: 72050

== ENCOUNTER → 2019-10-31 | Outpatient (CLI) | payer MEDICARE, BC ==
--- NOTE | 2019-10-31 13:21 | CT ---
EXAMINATION TYPE: CT abdomen pelvis w con DATE OF EXAM: 10/31/2019 COMPARISON: 10/27/2018 HISTORY: Follow up gastric and prostate cancer CT DLP: 760.2 mGycm Automated exposure control for dose reduction was used. TECHNIQUE: Helical acquisition of images was performed from the lung bases through the pelvis. CONTRAST: Performed with Oral Contrast and with IV Contrast, patient injected with 100 mL of Isovue 300. FINDINGS: LUNG BASES: No significant abnormality is appreciated. LIVER/GB: Hepatic parenchyma is diffusely hypoattenuated in comparison to that of the spleen, most co mmonly seen in hepatic steatosis. This finding limits evaluation for hepatic masses. No gross evidenc e of hepatic mass is seen. No intrahepatic biliary ductal dilatation. Gallbladder is surgically absen t. Benign granuloma is seen of the hepatic parenchyma. PANCREAS: Parenchymal atrophy throughout the majority of the pancreas. No ductal dilatation seen SPLEEN: No significant abnormality is seen. ADRENALS: No significant abnormality is seen. KIDNEYS: Large right cystic renal mass measures 11.6 x 12.0 cm and contains a thin internal septation is partially calcified. This displaces the adrenal gland. Left renal cyst measures up to 3.4 x 3.0 c m. Additional right renal cyst measures 2.8 cm. FREE AIR: No free air is visualized. ADENOPATHY: No greater than 1 cm short axis lymph node in the abdomen or pelvis. URINARY BLADDER: Decompressed and suboptimally evaluated. OSSEOUS STRUCTURES: Compression deformities are present of L1 and L2 as well as of T10. Mild degener ative change of the spine. Median sternotomy wires are partially visualized. Compression deformities are unchanged from 10/27/201819. Grade 1 anterolisthesis of L4 on L5. BOWEL: There are numerous colonic diverticula scattered throughout. Diffuse thickening of the sigmoi d colon may relate to incomplete distention. No pericolonic fat stranding seen. Oral contrast progres sed to the large bowel. No dilated large or small bowel. Surgical sutures are seen of the lesser curv ature of the stomach. Thickened rugal folds throughout. Partial resection of the stomach is seen. OTHER: Similar mild prominence of the descending thoracic aorta measuring 3.3 cm. Heart is enlarged. Very small hiatal hernia. There is a left inguinal hernia containing the proximal aspect of the sigmo id colon. No dilation of large bowel to suggest obstruction. Fat-containing right inguinal hernias mi nimal. Surgical clips are seen from prior prostatectomy in the surgical prostate bed and along the pe lvic sidewalls. Severe atherosclerosis of the abdominal aorta and its branches. Saccular infrarenal abdominal aortic aneurysm measures up to 3.3 x 2.9 x 3.1 cm in anterior posterior by transverse by craniocaudal dimension. IMPRESSION: 1. STATUS POST PARTIAL GASTRECTOMY WITH ANGEL-EN-Y. THICKENING OF THE GASTRIC FOLDS MAY RELATE TO INCO MPLETE DISTENTION OR GASTRITIS RATHER THAN RESIDUAL DISEASE. 2. NO NEW FINDINGS TO SUGGEST METASTATIC DISEASE IN THE ABDOMEN OR PELVIS. 3. STABLE INFRARENAL SACCULAR ABDOMINAL AORTIC ANEURYSM MEASURING UP TO 3.3 CM. 4. MULTIPLE OTHER INCIDENTAL FINDINGS DESCRIBED ABOVE.
== END | disposition home or self-care (01) ==
LOC: RADCTMAIN 10:06
PROVIDERS: ATTEND Internal Medicine Hematology & Oncology
DX: I71.4 Abdominal aortic aneurysm, without rupture (principal); C16.2 Malignant neoplasm of body of stomach; Z90.3 Acquired absence of stomach [part of]
CPT/HCPCS: 82565; 84520; 74177; 36415; Q9967